=== PATIENT | male | born 1955 | race Caucasian/White ===

== ENCOUNTER → 2018-06-28 02:48 | Outpatient (CLI) | payer MEDICARE, BC, SELFPAY ==
[2018-06-28 14:11] LABS: Ferritin 41 ng/mL (8-388)
== END ==
PROVIDERS: PCP Family Medicine; Visit Provider Nurse Practitioner
DX: M25.50 Pain in unspecified joint (principal)
CPT/HCPCS: 36415; 82728

== ENCOUNTER → 2018-06-28 03:18 | Outpatient (CLI) | payer MEDICARE, BC, SELFPAY ==
--- NOTE | 2018-07-05 06:21 | HOLTER_ITS ---
HOLTER MONITOR DATE OF DICTATION July 04, 2018 INTERPRETATION Baseline rhythm sinus. Rare single PAC. No Atrial fibrillation or SVT. Occasional single PVC. 1 couplet. One burst nonsustained VT, 5-beat duration at 115 beats per minute. Nocturnal heart rates as low as 40 - 45 beats per minute. Nocturnal Wenckebach is appreciated. Also appreciated is nocturnal 2:1 AV block, unclear if this is Wenckebach block or type II second-degree block. SYMPTOMS Flutter noted once during sinus rhythm. 80 beats per minute. Average heart rate 75 beats per minute, range 39 - 75 beats per minute. Rodo Barroso M.D. ML/jocelyn T- 07/05/2018
== END ==
PROVIDERS: PCP Family Medicine; Visit Provider Student in an Organized Health Care Education/Training Program
DX: M25.50 Pain in unspecified joint (principal); I49.1 Atrial premature depolarization; I49.3 Ventricular premature depolarization; I47.1 Supraventricular tachycardia; I44.30 Unspecified atrioventricular block
CPT/HCPCS: 93225; 36415; 82728

== ENCOUNTER → 2018-07-01 09:28 | Outpatient (CLI) | payer MEDICARE, BC, SELFPAY | PROVIDERS: PCP Family Medicine; Visit Provider Family Medicine | DX: I49.1 Atrial premature depolarization (principal); I47.1 Supraventricular tachycardia; I49.3 Ventricular premature depolarization; I44.30 Unspecified atrioventricular block | CPT/HCPCS: 93226 ==

== ENCOUNTER → 2018-07-04 10:00 | Outpatient (CLI) | payer MEDICARE, BC, SELFPAY | PROVIDERS: PCP Family Medicine; Visit Provider Internal Medicine Interventional Cardiology | DX: I49.9 Cardiac arrhythmia, unspecified (principal); I44.1 Atrioventricular block, second degree | CPT/HCPCS: 93227 ==

== ENCOUNTER → 2018-07-06 09:58 | Outpatient (CLI) | payer MEDICARE, BC, SELFPAY | PROVIDERS: PCP Family Medicine; Visit Provider Student in an Organized Health Care Education/Training Program | DX: I47.2 Ventricular tachycardia (principal) | CPT/HCPCS: 93005; 93010 ==

== ENCOUNTER 2018-08-08 01:10 | Outpatient (CLI) | payer MEDICARE, BC, SELFPAY ==
[2018-08-08 08:37] LABS: Anion Gap 7.7 mmol/L (3-11); BUN 17 mg/dL (7-18); CO2 30.3 mmol/L (21.0-32.0); CREATININE 0.76 mg/dL (0.70-1.30); Calcium 8.4 mg/dL (8.5-10.1); Chloride 102 mmol/L (98-107); Cholesterol 160 mg/dL (50-200); Glucose 93 mg/dL (70-100); HDL Cholesterol 31 mg/dL (40-60); LDL CHOLESTEROL 113 mg/dL (<100); Potassium 4.2 mmol/L (3.5-5.1); Sodium 140 mmol/L (136-145); Triglyceride 113 mg/dL (30-150)
== END 2018-08-08 01:30 ==
PROVIDERS: PCP Family Medicine; Visit Provider Family Medicine
DX: E78.5 Hyperlipidemia, unspecified (principal); E61.1 Iron deficiency
CPT/HCPCS: 36415; 80048; 80061; 83721

== ENCOUNTER 2018-11-06 09:01 | Emergency (ER) | payer MEDICARE, BC, SELFPAY ==
[2018-11-06 09:04] VITALS: BP 142/77; PULSE 67; RESP 16; TEMP 36.1; O2SAT 98
--- NOTE | 2018-11-06 09:13 | DI.CT_ITS ---
SYMPTOM/DIAGNOSIS: FENCEPOST TRAUMA, RUQ, PAIN IN RUQ. NO N/V/D/ ABDOMINAL AND PELVIC CT: 11/06 CT examination of the abdomen and pelvis was performed without contrast administration. Images obtained through the lung bases were unremarkable. Liver, spleen and pancreas show a normal noncontrast appearance Gallbladder and bile ducts are CT normal. There is calcification of the right adrenal gland without evidence of a mass. Kidneys and ureters are unremarkable in appearance by noncontrast criteria. No significant abdominal wall hernia seen. No evidence of appendicitis or diverticulitis. There is a question of mild fat stranding in the right upper quadrant which may be associated with recent trauma. No evidence of bowel obstruction or focal bowel wall hematoma. No free air. No free fluid. Abdominal aorta is of normal diameter. CONCLUSION: Question fat stranding right upper quadrant which may be associated with recent reported fence post trauma. No evidence of obstruction or perforation.
--- NOTE | 2018-11-06 09:22 | W.ED.GENAD ---
Discharge Plan Disposition Patient Disposition: HOME Condition: Good Discharge Details Chief Complaint: Chest/Rib Clinical Impression: Abdominal trauma Primary Care Provider: Devon Velasquez ED Provider: Amrit Alanis Home Meds and New Rx's Prescriptions: No Action tadalafil [Cialis] 5 mg tablet 5 mg PO DAILY RF: 0 loratadine 10 mg capsule 10 mg PO DAILY PRNRF: 0 fluticasone 50 mcg/actuation spray,suspension 2 spray TYREL DAILY PRNRF: 0 naproxen 500 mg tablet 500 mg PO BID PRNRF: 0 psyllium husk 0.52 GM capsule 0.52 gm PO DAILY RF: 0 famotidine 40 mg tablet 40 mg PO BID Qty: 180 RF: 4 Discharge Instructions Instructions: Blunt Abdominal Injury (ED) Additional Instructions: Please stick with a liquid diet for the next 24 hours and then gradually advance it to soft foods over the next 72 hours, eventually regaining a normal diet at the end of the week. If you notice any worsening pain, vomiting, diarrhea, blood in your stool, blood in your vomit, fever, chills, or change in your symptoms please return immediately. Please contact the surgeon's office Wednesday morning for close and prompt follow-up. If you notice any change in her symptomatology return immediately to the emergency department. Please continue to take Tylenol and Motrin as needed for the pain. Do not perform any vigorous activities, and do not put yourself in any situation that could result in repeat abdominal trauma. As always it is a pleasure participating in your care today. Referrals: Eber Carvalho DO [ [facility] STAFF PHYSICIAN] - Medical Decision Making This is a 63-year-old male who presents for evaluation of right upper quadrant abdominal pain after getting struck in the right upper quadrant by a fence post 6 days ago. He had improvement of his symptoms, but unfortunately it got acutely worse yesterday. It is worse with movement and palpation. It is improved by nothing. He has no associated nausea vomiting or diarrhea. Pain is minimal on palpation. The pain unfortunately is more so in the abdomen itself and less on the ribs. He has no symptoms of hematuria or dysuria. We do not have ultrasound capabilities over the weekend for this. I discussed with the patient potential CT imaging, and he would like further diagnostic imaging. Unfortunately today our CT scanner does not have a working IV contrast capability secondary to a national software issue. I discussed with the patient that the most appropriate test would be CT with contrast IV and that he would need to be transferred to 1 of the local facilities for this. The patient does not want to be transferred, nor does he want to leave just for the further IV contrast CT image. I discussed that a CT scan without contrast would not be as ideal, and the patient understands this risk. Respecting patient wishes we will go ahead with the CT scan noncon. 10:[address] scan has returned and demonstrates evidence of inflammatory changes surrounding the small bowel loops in the right upper quadrant. There is some diverticulosis as well, but no diverticulitis. Questionable mild pericolonic inflammatory changes may represent very mild diverticulitis on the rectosigmoid region. The patient has no pain in this region, and so I feel this is less likely. Because of the patient's CT scan findings, we will perform a laboratory workup to look for elevated lipase, elevated white count, or other significant abnormality. Hollow viscus injury is certainly on the differential, however his exam does not demonstrate signs and symptoms consistent with an acute abdomen. Pending laboratory workup will consult surgery for review of the case. 11:30 AM The patient's laboratory workup is returned benign, no significant abnormalities, no evidence of elevated lactate, lipase, or elevated white count. The patient is still able to eat and drink well, and is able to tolerate p.o. well. His pain is controlled with a single dose of acetaminophen that he was given. I did discuss the case with Dr. Padilla, she did personally reviewed the patient's chart, images, and we discussed the patient's clinical presentation at this time. She feels that if he is able to tolerate p.o., and his pain is controlled with NSAIDs, and there is no indication for admission at this time. She does recommend close and prompt follow-up though. As well as a liquid diet over the next 24-48 hours with a slow advance. I went back and reassessed the patient and he continues to have a nonsurgically acute abdomen on clinical exam. He is able to tolerate p.o. well. His pain is controlled. He has no clinical indications of abdominal compartment syndrome, and no radiographic evidence of intestinal rupture, or perforation. I had a long discussion with the patient regarding observation versus discharge. Patient agrees with discharge and feels comfortable with this. We also discussed the importance of a low threshold for return, as well as signs and symptoms that would merit to return. Patient understands. Patient will be discharged home with close follow-up with surgery on Wednesday, and a low threshold for return to the ED if he has any worsening or change in his symptomatology. I have extensively reviewed the treatment plan and discharge instructions with the patient. I have addressed all patient concerns at this time. The patient was made aware of what symptoms to monitor for that would warrant a return to the emergency department. Discussed the plan with the patient, they demonstrate verbal understanding and agreement with our assessment and plan at this time. FINDINGS: Lower thorax: No acute findings. ABDOMEN: Liver: Hepatomegaly 16 cm No mass. Gallbladder and bile ducts: Normal. No calcified stones. No ductal dilation. Pancreas: Normal. No ductal dilation. Spleen: Normal. No splenomegaly. Adrenals: Normal. No mass. Kidneys and ureters: Normal. No hydronephrosis. Stomach and bowel: Inflammatory changes are seen around loops of small bowel and colon in the right upper quadrant. This may represent contusion from the recent trauma. Diverticulosis of the rectosigmoid. Mild pericolonic inflammatory changes may represent diverticulitis in the appropriate clinical setting. Appendix: Normal appendix PELVIS: Bladder: Unremarkable as visualized. Reproductive: The prostate is enlarged, greater than 5 cm. ABDOMEN and PELVIS: Intraperitoneal space: Normal. No free air. No significant fluid collection. Bones/joints: No acute fracture. No dislocation. Soft tissues: Unremarkable. Vasculature: Normal. No abdominal aortic aneurysm. Lymph nodes: Normal. No enlarged lymph nodes. IMPRESSION: 1. Inflammatory changes are seen around loops of small bowel and colon in the right upper quadrant. This may represent contusion from the recent trauma. 2. Diverticulosis of the rectosigmoid. Mild pericolonic inflammatory changes may represent diverticulitis in the appropriate clinical setting. 3. The prostate is enlarged, greater than 5 cm. Recommend urology consult Dictated and Authenticated by: Paulo Amezcua MD. HPI General Date/Time Provider Initiated Documentation: 11/06/18 09:08. HPI Narrative: This is a 63-year-old male with a past medical history of prostatic hypertrophy, and reflux who presents today for right upper quadrant abdominal pain. 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 He took some [id number] pain medications and over the next few days the pain notably improved however patient states that yesterday and today there was a paradoxical worsening of his pain. He has had no associated vomiting, diarrhea, nausea, fever, chills, dysuria, hematuria, numbness, tingling, or weakness. He has no radiation of the pain to other areas of his abdomen. He denies any pleuritic pain. He has mild pain on the rib itself but mostly it is under the rib. He denies any cough or shortness of breath. He has worsening of his pain with movement and palpation. Improvement of his pain with nothing at this point. He denies any other associated symptoms. He denies any recent surgeries, pertinent family history, IV tobacco or illicit drug use. Related Data Home Medications Medication Instructions Recorded Confirmed psyllium husk 0.52 gm PO DAILY 05/28/17 07/28/18 loratadine 10 mg capsule 10 mg PO DAILY PRN 07/27/18 11/06/18 tadalafil 5 mg tablet 5 mg PO DAILY 07/27/18 11/06/18 fluticasone 50 mcg/actuation nasal 2 spray TYREL DAILY PRN 07/28/18 11/06/18 spray,suspension naproxen 500 mg tablet 500 mg PO BID PRN tab-cap 07/28/18 11/06/18 famotidine 40 mg tablet 40 mg PO BID #180 tab 11/04/18 11/06/18 Previous Rx's Medication Instructions Recorded famotidine 40 mg tablet 40 mg PO BID #180 tab 11/04/18 Allergies Allergy/AdvReac Type Severity Reaction Status Date / Time tamsulosin HCl [From Flomax] AdvReac Severe LETHARGIC Unverified 11/06/18 09:24 lactose AdvReac Unknown INTOLERANT Unverified 11/06/18 09:24 General Stated Complaint: Chest/Rib JESSE: 4 Review of Systems Review of Systems All systems reviewed & are unremarkable except as noted in HPI and below PFSH Surgical History Arthroplasty of knee Total replacement of hip Family History Mother Essential hypertension Heart disease Father Essential hypertension Parkinson disease Sister No problems noted. Sister No problems noted. Sister No problems noted. Brother Essential hypertension Neoplasm Brother Heart disease Hemochromatosis Grandfather Heart disease Grandfather No problems noted. Grandmother Neoplasm Grandmother No problems noted. Daughter Depression Daughter No problems noted. 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 3.ENT: Atraumatic external nose and ears. Moist MM. Neck: Symmetric, trachea midline, No thyromegaly. 4.CVS: +S1/S2, No murmurs or gallops. Peripheral pulses 2+ and equal in all extremities. Brisk capillary refill in all extremities. 5.RESP: Unlabored respiratory effort. Clear to auscultation bilaterally. No wheezes rales or rhonchi 6.GI: Soft, Nondistended, No hepatosplenomegaly. No guarding or rebound. Minimal pain on deep palpation of the right upper quadrant. No pain in the right lower, or the left side of the abdomen. No evidence of bruising. No evidence of an acute surgical abdomen. Mild pain on palpation of the right ribs. No paradoxical movement. 7.MSK: Normocephalic/Atraumatic, Extremities w/o deformity, No cyanosis or clubbing, Normal movement of all extremities no flank or CVA tenderness 8.Skin: Warm, Dry. No rashes or lesions. 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 Sensation grossly intact, no focal neurologic deficits. 10.Psych: (AAO) x3. Appropriate mood and affect Course Vital Signs Temperature 36.1 C L 11/06/18 09:04 Pulse 67 11/06/18 09:04 Respiratory Rate 16 11/06/18 09:04 Blood Pressure 142/77 H 11/06/18 09:04 Pulse Oximetry 98 11/06/18 09:04 Temperature 36.1 C L 11/06/18 09:04 Temperature Source Skin 11/06/18 09:04 Pulse 67 11/06/18 09:04 Respiratory Rate 16 11/06/18 09:04 Respiratory Effort Non-Labored 11/06/18 09:07 Blood Pressure 142/77 H 11/06/18 09:04 Pulse Oximetry 98 11/06/18 09:04 Pain Level 6 11/06/18 09:04
[2018-11-06] MEDS: Acetaminophen 500 MG TAB 1000 MG PO (09:30)
[2018-11-06 09:36] LABS: Bilirubin Negative (Negative); Blood Negative (Negative); Clarity Clear; Glucose Negative (Negative); Ketones Negative (Negative); Leukocyte Esterase Negative (Negative); Nitrite Negative (Negative); Specific Gravity <= 1.005 (1.005-1.025); Urobilinogen 0.2 EU/dL (Up TO 0.2); pH 5.5 (5-8)
--- NOTE | 2018-11-06 09:57 | DI.VRAD_ITS ---
EXAM: CT Abdomen and Pelvis Without Contrast EXAM DATE/TIME: 11/06/2018 9:15 AM CLINICAL HISTORY: 63 years old, male; Injury or trauma; Injury history: Fencepost trauma ruq no n/v/d; Follow-up exam; Abrasion; Injury date: 6 days ago TECHNIQUE: Axial computed tomography images of the abdomen and pelvis without contrast. Coronal and sagittal reformatted images were created and reviewed. COMPARISON: No relevant prior studies available. FINDINGS: Lower thorax: No acute findings. ABDOMEN: Liver: Hepatomegaly 16 cm No mass. Gallbladder and bile ducts: Normal. No calcified stones. No ductal dilation. Pancreas: Normal. No ductal dilation. Spleen: Normal. No splenomegaly. Adrenals: Normal. No mass. Kidneys and ureters: Normal. No hydronephrosis. Stomach and bowel: Inflammatory changes are seen around loops of small bowel and colon in the right upper quadrant. This may represent contusion from the recent trauma. Diverticulosis of the rectosigmoid. Mild pericolonic inflammatory changes may represent diverticulitis in the appropriate clinical setting. Appendix: Normal appendix PELVIS: Bladder: Unremarkable as visualized. Reproductive: The prostate is enlarged, greater than 5 cm. ABDOMEN and PELVIS: Intraperitoneal space: Normal. No free air. No significant fluid collection. Bones/joints: No acute fracture. No dislocation. Soft tissues: Unremarkable. Vasculature: Normal. No abdominal aortic aneurysm. Lymph nodes: Normal. No enlarged lymph nodes. IMPRESSION: 1. Inflammatory changes are seen around loops of small bowel and colon in the right upper quadrant. This may represent contusion from the recent trauma. 2. Diverticulosis of the rectosigmoid. Mild pericolonic inflammatory changes may represent diverticulitis in the appropriate clinical setting. 3. The prostate is enlarged, greater than 5 cm. Recommend urology consult Dictated and Authenticated by: Paulo Amezcua MD. Ordering:JAMES Marcus MD
[2018-11-06 10:28] LABS: Lactate-non-spesis 1.1 mmol/L (0.6-1.4)
[2018-11-06 10:29] LABS: Abs Immature Grans 0.01 k/cumm (0.0-0.09); Absolute Basophil Count 0.03 k/cumm (0.0-0.2); Absolute Eosinophil Count 0.21 k/cumm (0.0-0.7); Absolute Lymphocyte Count 0.86 k/cumm (1.2-3.4); Absolute Monocyte Count 0.56 k/cumm (0.11-0.7); Absolute Neutrophil Count 4.06 k/cumm (1.2-6.7); Basophils % 0.5; Eosinophils % 3.7; HCT 43.2 % (40.0-50.0); HGB 14.9 g/dL (13.5-17.5); Immature Grans % 0.2; Mean Corp. HGB Concentration 34.5 g/dL (32.0-36.0); Mean Corpuscular Hemoglobin 30.5 pg (27.0-33.0); Mean Corpuscular Volume 88.3 fL (80-95); Mean Platelet Volume 10.7 fL (8.0-11.0); Monocytes % 9.8; Neutrophils % 70.8; Platelet Count 189 x1000/uL (130-400); RBC 4.89 m/cumm (4.50-6.00); RBC Distribution Width 12.7 % (11.8-14.1); White Blood Cell Count 5.73 k/cumm (4.4-10.8)
[2018-11-06] MEDS: Normal Saline 1,000 ML 1000 ML IV (10:34)
[2018-11-06 10:42] LABS: INR 1.1 (1.0-3.5); PTT Activated 24.5 sec (21.0-31.4)
[2018-11-06 10:45] LABS: Ammonia 19 umol/L (11-32)
[2018-11-06 10:56] LABS: ALT 23 U/L (12-78); AST 18 U/L (15-37); Albumin 3.4 g/dL (3.4-5.0); Alkaline Phosphatase 97 U/L (46-116); Anion Gap 5.8 mmol/L (3-11); BUN 15 mg/dL (7-18); Bilirubin, Total 0.9 mg/dL (0.2-1.0); CO2 31.2 mmol/L (21.0-32.0); Chloride 103 mmol/L (98-107); Glucose 87 mg/dL (70-100); Lipase 128 U/L (73-393); Potassium 4.4 mmol/L (3.5-5.1); Sodium 140 mmol/L (136-145); Total Protein 6.8 g/dL (6.4-8.2)
[2018-11-06 11:40] VITALS: BP 131/79; PULSE 56; RESP 16; O2SAT 97
== END 2018-11-06 12:00 | disposition home or self-care (01) ==
PROVIDERS: Emergency Provider Student in an Organized Health Care Education/Training Program; PCP Family Medicine
DX: R10.11 Right upper quadrant pain (principal); R93.3 Abnormal findings on diagnostic imaging of other parts of digestive tract; W22.8XXA Striking against or struck by other objects, initial encounter
CPT/HCPCS: 36415; 80053; 83690; 96360; 99284; 74176; 81003; 82140; 83605; 85025; 85610; 85730; 99285

== ENCOUNTER 2018-11-09 20:21 | Emergency (ER) | payer MEDICARE, BC, SELFPAY ==
[2018-11-09 20:27] VITALS: BP 123/74; PULSE 69; RESP 18; TEMP 36.5; O2SAT 97
--- NOTE | 2018-11-09 21:00 | W.ED.GENAD ---
Discharge Plan Disposition Patient Disposition: HOME Condition: Good Discharge Details Chief Complaint: Abd Prob Clinical Impression: Abdominal pain, right upper quadrant, Enlarged prostate with lower urinary tract symptoms (LUTS) Primary Care Provider: Devon Velasquez ED Provider: Kyle Carty [place] Meds and New Rx's Prescriptions: Continued tadalafil [Cialis] 5 mg tablet 5 mg PO DAILY RF: 0 loratadine 10 mg capsule 10 mg PO PRN PRNRF: 0 fluticasone 50 mcg/actuation spray,suspension 2 spray TYREL PRN PRNRF: 0 naproxen 500 mg tablet 500 mg PO BID PRNRF: 0 psyllium husk 0.52 GM capsule 0.52 gm PO DAILY RF: 0 famotidine 40 mg tablet 40 mg PO DAILY RF: 0 acetaminophen 500 mg Capsule 2 cap PO PRN PRNRF: 0 Discharge Instructions Additional Instructions: Repeat laboratory studies tonight are fine. Repeat CT scan shows no changes in the right upper quadrant which were present 3 days ago. You do have a significantly enlarged prostate and left seminal vesicle. Please follow-up with your primary care or with urology for this. You should follow-up with surgery as planned for the right upper quadrant pain. Return to ED for fever, vomiting, new or worsening pain. Referrals: Mayte Padilla MD [ [facility] STAFF PHYSICIAN] - Devon Velasquez MD [Primary Care Provider] - Medical Decision Making Patient returns with worse pain. He is a little tender in the right upper quadrant. He otherwise looks well. I did review the radiology read as well as the ED record from his visit on the . Given that the scan was without contrast and had abnormal findings I think it reasonable to repeat his scan with contrast tonight and recheck his laboratory studies. He declines anything for pain. Patient laboratory studies remain unremarkable. His urinalysis remains negative. CT scan tonight shows no significant pathology. Specifically there are no right upper quadrant changes. He does have enlarged prostate and enlarged left seminal vesicle. He is known to have a large prostate. He may follow-up with primary care for this. He has an appointment with surgery tomorrow for his right upper quadrant pain. He will be discharged home at this time. Medical Records Medical records reviewed: Yes I reviewed the patient's medical records. Lab Data Lab results reviewed: Yes I reviewed the patient's lab results. HPI General Mode of arrival: ambulatory. Date/Time Provider Initiated Documentation: 11/09/18 20:59. Limitations to Documentation: no limitations. Information obtained by: patient and old records reviewed. HPI Narrative: Patient presents to ED with some worsening right upper quadrant pain. Patient seen here on the with increased pain. Reported having a fall against a fence posts and striking that area about 5-6 days prior. Workup included a CT scan with no contrast due to technical issues. There was suggestion of changes in the right upper quadrant possibly related to contusion versus infection. Patient had a normal white count and no fever. He had no other symptoms. He was discharged to follow-up with surgery and told to return if he had worse pain. He had been doing okay with just Tylenol. Tonight pain seemed to be worse. He has no other associated symptoms with it. He has no chest pain or shortness of breath. He has no pain in his back. He has no hematuria. However, because he was told to return if he had worsening symptoms, he is here for reevaluation. Related Data Home Medications Medication Instructions Recorded Confirmed psyllium husk 0.52 gm PO DAILY 05/28/17 11/09/18 loratadine 10 mg capsule 10 mg PO PRN PRN 07/27/18 11/09/18 tadalafil 5 mg tablet 5 mg PO DAILY 07/27/18 11/09/18 fluticasone 50 mcg/actuation nasal 2 spray TYREL PRN PRN 07/28/18 11/09/18 spray,suspension naproxen 500 mg tablet 500 mg PO BID PRN tab-cap 07/28/18 11/09/18 acetaminophen 2 cap PO PRN PRN 11/09/18 11/09/18 famotidine 40 mg PO DAILY 11/09/18 11/09/18 Allergies Allergy/AdvReac Type Severity Reaction Status Date / Time tamsulosin HCl [From Flomax] AdvReac Severe LETHARGIC Unverified 11/09/18 20:31 lactose AdvReac Unknown INTOLERANT Unverified 11/09/18 20:31 General Stated Complaint: Abd Prob JESSE: 3 Review of Systems Constitutional Denies chills, Denies fever(s), Denies headache(s), Denies malaise and Denies weakness Eyes Denies change in vision, Denies eye discharge, Denies irritation and Denies eye pain ENT Denies headache(s) and Denies neck pain Cardiovascular Denies chest pain, Denies pedal edema, Denies edema, Denies leg edema, Denies lightheadedness, Denies palpitations and Denies dyspnea Respiratory Denies cough and Denies dyspnea Gastrointestinal Reports abdominal pain, Denies diarrhea, Denies nausea and Denies vomiting Genitourinary Denies hematuria, Denies difficulty urinating, Denies dysuria, Denies urinary frequency and Denies urinary urgency Musculoskeletal Denies back pain, Denies myalgias, Denies arthralgias, Denies joint swelling, Denies neck pain and Denies numbness Integumentary/Breasts Denies erythema and Denies rash Neurologic Denies confusion, Denies headache(s), Denies numbness and Denies weakness Psychiatric Denies confusion Endocrine Denies palpitations PFSH Medical History Enlarged prostate with lower urinary tract symptoms (LUTS) (Chronic 07/07/16) Gastro-esophageal reflux disease with esophagitis (Chronic) Generalized osteoarthrosis (Chronic) Surgical History Arthroplasty of knee (Inactive) Family History Mother Essential hypertension Heart disease Father Essential hypertension Parkinson disease Sister No problems noted. Sister No problems noted. Sister No problems noted. Brother Essential hypertension Neoplasm Brother Heart disease Hemochromatosis Grandfather Heart disease Grandfather No problems noted. Grandmother Neoplasm Grandmother No problems noted. Daughter Depression Daughter No problems noted. Social History household members: other details: 2 current occupational status: retired pets and animals: Yes pets and animals: cat(s) frequency: daily duration: 30-45 minutes/day Smoking/Tobacco Use Status: Never alcohol intake: current alcohol intake frequency: 0-2 drinks per day substance use type: does not use sylvia/mandaeism: Muslim special sylvia needs: No Exam Const General: cooperative, comfortable and no acute distress Orientation: alert and oriented x3 HENMT Head: normocephalic and atraumatic Mouth: moist mucous membranes Eyes Conjunctivae: conjunctivae normal Pupils: PERRL EOM: EOM intact bilaterally Neck Neck: full ROM, no lymphadenopathy, trachea midline and supple Resp Effort & Inspection: normal respiratory effort Auscultation: clear to auscultation bilaterally Cardio Rate: regular rate Rhythm: regular rhythm Heart Sounds: S1 normal and S2 normal Pulses: normal peripheral pulses GI Inspection: non-distended Palpation: soft, not firm, no guarding and tender in the RUQ; Chavez's sign negative Skin General skin exam: no erythema Rashes: no rashes Trauma: no lacerations or abrasions Other: warm and dry Neuro General: alert, oriented x3, no focal motor deficits and CN's II-XI intact bilaterally Cognition: normal cognition Speech: speech normal Sensory Exam: no sensory deficits noted Extrem General: normal to inspection, full ROM and no clubbing, cyanosis or edema Psych Appearance: grossly normal Mental Status: mental status grossly normal Affect: normal affect Attitude: cooperative Course Vital Signs Temperature 97.7 F 11/09/18 20:27 Pulse 69 11/09/18 20:27 Respiratory Rate 18 11/09/18 20:27 Blood Pressure 123/74 11/09/18 20:27 Pulse Oximetry 97 11/09/18 20:27 Temperature 97.7 F 11/09/18 20:27 Temperature Source Skin 11/09/18 20:27 Pulse 69 11/09/18 20:27 Respiratory Rate 18 11/09/18 20:27 Respiratory Effort 11/09/18 20:29 Blood Pressure 123/74 11/09/18 20:27 Blood Pressure Position Sitting 11/09/18 20:27 Pulse Oximetry 97 11/09/18 20:27 Oxygen Delivery Method Room Air 11/09/18 20:27 Oxygen Flow Rate 0 11/09/18 20:27 Pain Level 0 11/09/18 20:36 Comment 11/09/18 20:27
[2018-11-09 21:47] LABS: ALT 22 U/L (12-78); AST 15 U/L (15-37); Abs Immature Grans 0.01 k/cumm (0.0-0.09); Absolute Basophil Count 0.03 k/cumm (0.0-0.2); Absolute Eosinophil Count 0.25 k/cumm (0.0-0.7); Absolute Lymphocyte Count 1.09 k/cumm (1.2-3.4); Absolute Monocyte Count 0.56 k/cumm (0.11-0.7); Absolute Neutrophil Count 3.84 k/cumm (1.2-6.7); Albumin 3.2 g/dL (3.4-5.0); Alkaline Phosphatase 104 U/L (46-116); Anion Gap 6.6 mmol/L (3-11); BUN 13 mg/dL (7-18); Basophils % 0.5; Bilirubin, Total 0.5 mg/dL (0.2-1.0); CO2 30.4 mmol/L (21.0-32.0); CREATININE 0.81 mg/dL (0.70-1.30); Calcium 8.6 mg/dL (8.5-10.1); Chloride 100 mmol/L (98-107); Eosinophils % 4.3; Glucose 104 mg/dL (70-100); HCT 39.7 % (40.0-50.0); HGB 13.8 g/dL (13.5-17.5); Immature Grans % 0.2; Lymphocytes % 18.9; Mean Corp. HGB Concentration 34.8 g/dL (32.0-36.0); Mean Corpuscular Hemoglobin 30.1 pg (27.0-33.0); Mean Corpuscular Volume 86.5 fL (80-95); Mean Platelet Volume 10.9 fL (8.0-11.0); Monocytes % 9.7; Neutrophils % 66.4; Platelet Count 191 x1000/uL (130-400); Potassium 3.5 mmol/L (3.5-5.1); RBC 4.59 m/cumm (4.50-6.00); RBC Distribution Width 12.2 % (11.8-14.1); Sodium 137 mmol/L (136-145); Total Protein 6.8 g/dL (6.4-8.2); White Blood Cell Count 5.78 k/cumm (4.4-10.8)
[2018-11-09 22:01] LABS: Bilirubin Negative (Negative); Blood Negative (Negative); Clarity Clear; Glucose Negative (Negative); Ketones Negative (Negative); Leukocyte Esterase Negative (Negative); Nitrite Negative (Negative); Specific Gravity <= 1.005 (1.005-1.025); Urobilinogen 0.2 EU/dL (Up TO 0.2); pH 5.5 (5-8)
[2018-11-09 22:18] LABS: Lipase 136 U/L (73-393)
[2018-11-09] MEDS: Omnipaque 350 MG/ML 100 ML BTL IJ (22:54)
--- NOTE | 2018-11-09 22:55 | DI.CT_ITS ---
SYMPTOM/DIAGNOSIS: ABNORMAL NONCONTRAST SCAN 3 DAYS AGO/PAIN WORSE CT ABDOMEN AND PELVIS: The study was conducted according to the usual protocol with an intravenous administration of 100 ml Omnipaque 350. The history in this patient is abdominal pain generalized, with increased symptoms status post prior CT which was obtained 3 days ago. The lower thorax is unremarkable. The liver, gallbladder, and bile ducts are unremarkable. There are no stones. The pancreas and spleen are normal. There is note made of left adrenal nodular hyperplasia. Right adrenal calcification suggesting possible sequela from an old hemorrhage. The kidneys are normal. Note is made of a moderate quantity of feces in the transverse and right colon. There is severe colonic diverticulosis with no evidence of diverticulitis. The bladder is unremarkable. Prostate is enlarged at 6.5 cm, also prominence of the left seminal vesical is identified. These findings could be correlated with the patient's PSA levels. Also correlation with non-emergent prostate ultrasound and other modalities might be of value. There is no evidence of free air or free fluid in the intraperitoneal space. Mild to moderate multi-level degenerative changes are identified. There is degenerative disc disease, spondylosis and facet joint DJD. There is a minimal Grade 1 anterior listhesis of L4 and L5 with resultant central spinal stenosis and with severe facet joint degenerative changes at this level. The soft tissues are unremarkable. Atherosclerotic changes are noted in the aorta and iliac vessels, there is no evidence of an aneurysm. Note is made of one or more calcified pelvic phleboliths as well. There is no evidence of lymphadenopathy. SUMMARY: The prostate is enlarged with a maximal diameter of 6.5 cm. Also left seminal vesical prominence is demonstrated. Correlation with PSA levels is recommended in this patient. Also an ultrasound examination of the prostate, CT or MRI could be of value for further evaluation if appropriate. Note is made of diverticulosis with no evidence of diverticulitis. A large quantity of fecal material is noted throughout the ascending and transverse colonic segments with a moderate quantity of scattered gas throughout the colon and nondilated small bowel loops are apparent. The findings would be consistent with constipation, please see the above discussion.
--- NOTE | 2018-11-10 00:01 | DI.VRAD_ITS ---
EXAM: CT Abdomen and Pelvis With Contrast EXAM DATE/TIME: 11/09/2018 10:52 PM CLINICAL HISTORY: 63 years old, male; Pain; Abdominal pain; Generalized; Patient HX: Non contrast exam 3 days ago, increased pain TECHNIQUE: Axial computed tomography images of the abdomen and pelvis with intravenous contrast. All CT scans at this facility use at least one of these dose optimization techniques: automated exposure control; mA and/or kV adjustment per patient size (includes targeted exams where dose is matched to clinical indication); or iterative reconstruction. Coronal and sagittal reformatted images were created and reviewed. CONTRAST: 100 ml of Omnipaque 350 administered intravenously. COMPARISON: CT ABDOMEN PELVIS WO 11/06/2018 9:39 AM FINDINGS: Lower thorax: No acute findings. ABDOMEN: Liver: Normal. No mass. Gallbladder and bile ducts: Normal. No calcified stones. No ductal dilation. Pancreas: Normal. No ductal dilation. Spleen: Normal. No splenomegaly. Adrenals: Left adrenal nodular hyperplasia. Right adrenal calcification suggesting sequela from possible previous adrenal hemorrhage. Kidneys and ureters: Normal. No hydronephrosis. Stomach and bowel: Moderate retained feces in the transverse colon and right colon. Impression: Severe colonic diverticulosis. Appendix: The appendix appears normal. PELVIS: Bladder: Unremarkable as visualized. Reproductive: Enlarged prostate at 6.5 cm with enlarged left seminal vesicle; correlation with PSA levels is recommended. Correlation with nonemergent prostate ultrasound or other imaging modality may be helpful. ABDOMEN and PELVIS: Intraperitoneal space: Normal. No free air. No significant fluid collection. Bones/joints: Mild to moderate multilevel degenerative changes including degenerative disc disease, spondylosis and facet degenerative changes. Minimal 1 mm grade 1 anterior non-spondylitic spondylolisthesis of L4 on L5 with central spinal stenosis and prominent facet degenerative changes. Soft tissues: Unremarkable. Vasculature: Calcification of the abdominal aorta and/or iliac arteries consistent with atherosclerotic vessel disease. One or more calcified pelvic phleboliths. Lymph nodes: Normal. No enlarged lymph nodes. IMPRESSION: 1. Enlarged prostate at 6.5 cm with enlarged left seminal vesicle; correlation with PSA levels is recommended. Correlation with nonemergent prostate ultrasound or other imaging modality may be helpful. 2. Severe colonic diverticulosis. Dictated and Authenticated by: oRdo Guerrero MD. Ordering:STARLA Wright MD
== END 2018-11-10 00:30 | disposition home or self-care (01) ==
PROVIDERS: Emergency Provider Emergency Medicine; PCP Family Medicine
DX: R10.11 Right upper quadrant pain (principal); N40.1 Benign prostatic hyperplasia with lower urinary tract symptoms; R39.198 Other difficulties with micturition
CPT/HCPCS: 36415; 80053; 83690; 96374; 99284; 74177; 81003; 85025; 99283; J3490

== ENCOUNTER → 2018-11-10 11:26 | Outpatient (BNVA) | payer MEDICARE, BC, SELFPAY | PROVIDERS: PCP Family Medicine; Referring Provider Family Medicine; Visit Provider Physical Therapy Assistant | DX: R10.11 Right upper quadrant pain (principal) | CPT/HCPCS: 99213 ==

== ENCOUNTER → 2018-11-14 11:20 | Outpatient (BNVA) | payer MEDICARE, BC, SELFPAY | PROVIDERS: PCP Family Medicine; Visit Provider Urology | DX: N40.1 Benign prostatic hyperplasia with lower urinary tract symptoms (principal); R39.198 Other difficulties with micturition | CPT/HCPCS: 99213 ==

== ENCOUNTER 2019-04-16 08:15 | Emergency (ER) | payer MEDICARE, BC, SELFPAY ==
[2019-04-16 08:27] VITALS: BP 127/89; PULSE 64; RESP 16; TEMP 36.3; O2SAT 98
--- NOTE | 2019-04-16 08:30 | W.ED.GENAD ---
Discharge Plan Disposition Patient Disposition: HOME Condition: Stable Discharge Details Chief Complaint: Cellulitis Clinical Impression: Cellulitis of middle finger, Personal history of retained foreign body fully removed Primary Care Provider: Devon Velasquez ED Provider: Monica Briggs Home Meds and New Rx's Prescriptions: New amoxicillin-pot clavulanate [Augmentin] 875-125 mg tablet 1 tab PO BID 7 Days Qty: 14 RF: 0 Continued fluticasone propionate 50 mcg/actuation spray,suspension 2 spray TYREL PRN PRNRF: 0 naproxen 500 mg tablet 500 mg PO BID PRNRF: 0 lorazepam 0.5 mg tablet 0.5 mg PO .COMPLEX PRN (Reason: anxiety) Qty: 6 RF: 0 loratadine 10 mg capsule 10 mg PO PRN PRN (Reason: allergy symptoms) Qty: 60 RF: 2 psyllium husk 0.52 GM capsule 0.52 gm PO DAILY RF: 0 tadalafil [Cialis] 5 mg tablet 5 mg PO DAILY Qty: 30 RF: 11 famotidine 40 mg tablet 40 mg PO DAILY RF: 0 acetaminophen 500 mg Capsule 2 cap PO PRN PRNRF: 0 Discharge Instructions Instructions: Cellulitis (ED) Additional Instructions: Take the antibiotics until finished. Keep your finger clean and dry. Cover your distal fingertip with dressing if the risk of further contamination. Call your primary care doctor tomorrow to schedule follow-up appointment for reevaluation tomorrow. If unable to obtain reevaluation by primary care doctor tomorrow, return to the emergency department tomorrow for reevaluation of your finger. Discharge Data Discharge Physician: Monica Briggs Medical Decision Making 64-year-old male who presents with right third finger redness, pain and swelling for the past 2 days. States that 1 to 2 weeks ago he had a splinter under his right third fingernail which he removed, and symptoms have been resolved until 2 days ago. Vitals within normal limits. Patient appears nontoxic. Afebrile. There appears to be a right distal third finger cellulitis but no obvious paronychia. No obvious foreign body noted under fingernail. No signs of flexor tenosynovitis. Suspect that as symptoms resolved after he remove the splinter, the opening under the skin was a nidus for bacteria to travel up finger. I do not see any obvious foreign body under the fingernail and would not want to explore under the fingernail for possible foreign body with no obvious foreign body noted. Will soak finger in Betadine and saline, send for right third finger x-ray to rule out additional foreign body, and place on Augmentin. X-ray negative for fracture or foreign body. Patient declined dose of Augmentin here. Patient instructed to go immediately to the pharmacy to fill the prescription. He is instructed to call his primary care doctor tomorrow morning to schedule follow-up appointment for reevaluation tomorrow. If he is unable to see his primary care doctor tomorrow, he is instructed to return to the emergency department tomorrow for reevaluation. Medical Records Medical records reviewed: Yes I reviewed the patient's medical records. Imaging Data Radiologic Study: Radiologist's impression: XR Right Finger(s) EXAM DATE/TIME: 04/16/2019 8:40 AM CLINICAL HISTORY: 64 years old, male; Signs and symptoms; Other: S/P splinter in R middle finger nail, R/O foreign body/fracture/effusion TECHNIQUE: Imaging protocol: XR Right fingers. Views: Minimum 2 views. COMPARISON: No relevant prior studies available. FINDINGS: Bones/joints: No acute fracture. No dislocation. Soft tissues: No radiopaque foreign body. IMPRESSION: No radiopaque foreign body. HPI General Mode of arrival: ambulatory. Date/Time Provider Initiated Documentation: 04/16/19 08:28. Limitations to Documentation: no limitations. Information obtained by: patient. HPI Narrative: Patient is a 64-year-old male who presents with right third finger swelling and pain for the past 2 days. Patient states 1 to 2 weeks ago he was working with wood when he got a few splinters under his right third fingernail. He states he remove them and had been feeling fine up until 2 days ago. He states since then he has had progressive redness, swelling and pain. He denies any new injury. Related Data Home Medications Medication Instructions Recorded Confirmed psyllium husk 0.52 gm PO DAILY 05/28/17 04/16/19 fluticasone propionate 50 2 spray TYREL PRN PRN 07/28/18 04/16/19 mcg/actuation nasal spray,suspension naproxen 500 mg tablet 500 mg PO BID PRN tab-cap 07/28/18 04/16/19 acetaminophen 2 cap PO PRN PRN 11/09/18 04/16/19 famotidine 40 mg PO DAILY 11/09/18 04/16/19 loratadine 10 mg capsule 10 mg PO PRN PRN #60 cap 03/02/19 04/16/19 lorazepam 0.5 mg tablet 0.5 mg PO .COMPLEX PRN #6 tab 03/02/19 04/16/19 tadalafil 5 mg tablet 5 mg PO DAILY #30 tab 04/05/19 04/16/19 amoxicillin-pot clavulanate 1 tab PO BID 7 Days #14 tab 04/16/19 [Augmentin] Previous Rx's Medication Instructions Recorded loratadine 10 mg capsule 10 mg PO PRN PRN #60 cap 03/02/19 lorazepam 0.5 mg tablet 0.5 mg PO .COMPLEX PRN #6 tab 03/02/19 tadalafil 5 mg tablet 5 mg PO DAILY #30 tab 04/05/19 amoxicillin-pot clavulanate 1 tab PO BID 7 Days #14 tab 04/16/19 [Augmentin] Allergies Allergy/AdvReac Type Severity Reaction Status Date / Time tamsulosin HCl [From Flomax] AdvReac Severe LETHARGIC Verified 04/16/19 08:31 lactose AdvReac Unknown INTOLERANT Verified 04/16/19 08:31 General JESSE: 3 Review of Systems Review of Systems All systems reviewed & are unremarkable except as noted in HPI and below Constitutional Reports as per HPI, Denies chills and Denies fever(s) Eyes Denies blurry vision ENT Denies dizziness, Denies sore throat and Denies throat swelling Cardiovascular Denies chest pain and Denies dyspnea Respiratory Denies cough and Denies dyspnea Gastrointestinal Denies abdominal pain, Denies diarrhea and Denies vomiting Genitourinary Denies hematuria and Denies dysuria Musculoskeletal Denies back pain and Denies numbness Integumentary/Breasts Denies lesions and Denies rash Neurologic Denies dizziness, Denies focal weakness and Denies numbness Allergic/Immunologic Denies throat swelling [facility] Medical History Enlarged prostate with lower urinary tract symptoms (LUTS) (Chronic 07/07/16) Gastro-esophageal reflux disease with esophagitis (Chronic) Generalized osteoarthrosis (Chronic) Abdominal pain (Resolved) Surgical History Arthroplasty of knee (Inactive) Family History Mother Essential hypertension Heart disease Father Essential hypertension Parkinson disease Sister No problems noted. Sister No problems noted. Sister No problems noted. Brother Essential hypertension Neoplasm Brother Heart disease Hemochromatosis Grandfather Heart disease Grandfather No problems noted. Grandmother Neoplasm Grandmother No problems noted. Daughter Depression Daughter No problems noted. Social History Smoking/Tobacco Use Status: Never Alcohol Intake: current Alcohol Intake frequency: 0-2 drinks per day Drug use: Never Substance use type: does not use Household members: other Details: 2 Pets and animals: Yes Pets and animals: cat(s) Duration: 30-45 minutes/day Frequency: daily Crhistin/Nondenominational: Congregation Special christin needs: No Do you feel safe in your relationship?: Yes Exam Const General: cooperative, healthy appearing and no acute distress HENMT Head: normal to inspection Mouth: oral mucosae normal Eyes General: appearance normal, both eyes and all related structures Neck Neck: normal visual inspection Resp Effort & Inspection: normal respiratory effort and able to speak in complete sentences Cardio Rate: regular rate Skin General skin exam: no rashes or lesions noted Neuro General: alert, awake and oriented x3 Motor: muscle tone normal throughout Extrem Hand/finger images: 1. Moderate erythema and edema noted to distal dorsal finger. There is a localized 2x2mm area of fluctuance within the area of erythema 1cm passed the nail bed but this does not appear consistent with paronychia. 2. Moderate erythema and edema. Other: No pain with passive extension of finger. Limited flexion at DIP and PIP due to swelling. No significant tenderness along the dorsal finger. Cap refill less than 2 seconds. There is some brownish discoloration noted at distal tip of nail but no obvious foreign body noted. Psych Appearance: grossly normal Affect: normal affect
--- NOTE | 2019-04-16 08:39 | DI.RAD_ITS ---
SYMPTOM/DIAGNOSIS: S/P SPLINTER IN RT MIDDLE FINGER NAIL, ? FOREIGN BODY, PAIN RIGHT MIDDLE FINGER: Three views were obtained. There are degenerative changes of the IP joints. There is mild soft tissue swelling, particularly about the PIP joint. No gross foreign body or fracture is seen.
--- NOTE | 2019-04-16 09:57 | DI.VRAD_ITS ---
EXAM: XR Right Finger(s) EXAM DATE/TIME: 04/16/2019 8:40 AM CLINICAL HISTORY: 64 years old, male; Signs and symptoms; Other: S/P splinter in R middle finger nail, R/O foreign body/fracture/effusion TECHNIQUE: Imaging protocol: XR Right fingers. Views: Minimum 2 views. COMPARISON: No relevant prior studies available. FINDINGS: Bones/joints: No acute fracture. No dislocation. Soft tissues: No radiopaque foreign body. IMPRESSION: No radiopaque foreign body. Dictated and Authenticated by: Emily Torerz MD. Ordering:MARTIN Anderson MD
--- NOTE | 2019-04-16 10:51 | NUR.NOTE ---
finger soaked in saline with betadine 20min.Nursing Note:
== END 2019-04-16 10:06 | disposition home or self-care (01) ==
PROVIDERS: Emergency Provider Physician Assistant; PCP Family Medicine
DX: L03.011 Cellulitis of right finger (principal)
CPT/HCPCS: 99283; 73140

== ENCOUNTER 2019-04-17 09:03 | Emergency (ER) | payer MEDICARE, BC, SELFPAY ==
[2019-04-17 09:08] VITALS: BP 132/74; PULSE 63; RESP 20; TEMP 36.9; O2SAT 97
--- NOTE | 2019-04-17 09:11 | ED.GENADUL_ITS ---
Discharge Plan Disposition Patient Disposition: HOME Condition: Stable Discharge Details Chief Complaint: Recheck Clinical Impression: Cellulitis of finger, right Primary Care Provider: Devon Velasquez ED Provider: Christina Ventura Home Meds and New Rx's Prescriptions: Continued fluticasone propionate 50 mcg/actuation spray,suspension 2 spray TYREL PRN PRNRF: 0 naproxen 500 mg tablet 500 mg PO BID PRNRF: 0 lorazepam 0.5 mg tablet 0.5 mg PO .COMPLEX PRN (Reason: anxiety) Qty: 6 RF: 0 loratadine 10 mg capsule 10 mg PO PRN PRN (Reason: allergy symptoms) Qty: 60 RF: 2 psyllium husk 0.52 GM capsule 0.52 gm PO DAILY RF: 0 tadalafil [Cialis] 5 mg tablet 5 mg PO DAILY Qty: 30 RF: 11 famotidine 40 mg tablet 40 mg PO DAILY RF: 0 acetaminophen 500 mg Capsule 2 cap PO PRN PRNRF: 0 amoxicillin-pot clavulanate [Augmentin] 875-125 mg tablet 1 tab PO BID 7 Days Qty: 14 RF: 0 Discharge Instructions Instructions: Cellulitis (ED) Additional Instructions: Please return immediately to the emergency department if you develop any new or worsening symptoms or if you become otherwise concerned. It is extremely important that you make an appointment to be seen in 24 hours by your primary care doctor in follow-up for this visit, or if you cannot schedule this appointment please return to the emergency department in 24 hours for recheck. Please continue to take your antibiotics as prescribed. Referrals: Devon Velasquez MD [Primary Care Provider] - Discharge Data Discharge Date/Time-TO BE ENTERED AT DEPARTURE: 04/17/19 10:25 Medical Decision Making Denis Loomis is a 64-year-old man with a history of GERD, AV block, hyperlipidemia who presented to the emergency department for recheck of right index finger cellulitis after being started on Augmentin here yesterday. On exam patient is very well and nontoxic appearing. His right index finger has volar erythema from the PIP joint to the DIP joint, also mild dorsal erythema over the DIP. No pain with passive extension, finger is not held in flexion. Tenderness is mild. No clear paronychia, and patient reports that erythema did not start in the area of the cuticle. Doubt foreign body exam/history is not consistent with sepsis, flexor tenosynovitis, paronychia, other acute emergent life/limb threatening pathology. Plan for baseball splint for patient to wear while he is working underneath the glove, outpatient follow-up for recheck in 24 hours. I had a lengthy discussion with the patient regarding return to emergency department precautions, importance of outpatient follow-up, home care. Patient verbalized understanding the plan was amenable. Patient was discharged to home with clear plan for outpatient follow-up. All questions were answered. Medical Records Medical records reviewed: Yes I reviewed the patient's medical records. HPI General Mode of arrival: ambulatory . Date/Time Provider Initiated Documentation: 04/17/19 09:10 . Limitations to Documentation: no limitations . Information obtained by: patient, RN notes reviewed and old records reviewed . HPI Narrative: Denis Loomis is a 64-year-old man with history of AV block, GERD, hyperlipidemia presenting to the emergency department with finger infection. Per patient and record review, patient was seen in the emergency department yesterday and diagnosed with cellulitis of his right index finger. Patient reports that 1 to 2 weeks ago he had a splinter underneath his fingernail, which she removed at home by himself. He had no symptoms until several days ago when he noticed redness and swelling of the finger. X-ray here yesterday was negative. Patient was started on Augmentin. He was told to follow-up in 24 hours, however he could not get an appointment with his PCP until 04/19/2019, so return to the emergency department for recheck. Patient reports that his symptoms are unchanged from yesterday. He has redness, mild pain, and swelling of the finger. Redness has not increased or decreased. He reports that his pain is also unchanged. He denies fever, any other pain, vomiting, diarrhea, or other systemic symptoms. Patient reports that overall he feels well in his usual state of health. Related Data Home Medications Medication Instructions Recorded Confirmed psyllium husk 0.52 gm PO DAILY 05/28/17 04/17/19 fluticasone propionate 50 2 spray TYREL PRN PRN 07/28/18 04/17/19 mcg/actuation nasal spray,suspension naproxen 500 mg tablet 500 mg PO BID PRN tab-cap 07/28/18 04/17/19 acetaminophen 2 cap PO PRN PRN 12/26/18 06/03/19 famotidine 40 mg PO DAILY 11/09/18 04/17/19 loratadine 10 mg capsule 10 mg PO PRN PRN #60 cap 03/02/19 04/17/19 lorazepam 0.5 mg tablet 0.5 mg PO .COMPLEX PRN #6 tab 03/02/19 04/17/19 tadalafil 5 mg tablet 5 mg PO DAILY #30 tab 04/05/19 04/17/19 amoxicillin-pot clavulanate 1 tab PO BID 7 Days #14 tab 04/16/19 04/17/19 [Augmentin] Previous Rx's Medication Instructions Recorded loratadine 10 mg capsule 10 mg PO PRN PRN #60 cap 03/02/19 lorazepam 0.5 mg tablet 0.5 mg PO .COMPLEX PRN #6 tab 03/02/19 tadalafil 5 mg tablet 5 mg PO DAILY #30 tab 04/05/19 amoxicillin-pot clavulanate 1 tab PO BID 7 Days #14 tab 04/16/19 [Augmentin] Allergies Allergy/AdvReac Type Severity Reaction Status Date / Time tamsulosin HCl [From Flomax] AdvReac Severe LETHARGIC Verified 04/17/19 09:10 lactose AdvReac Unknown INTOLERANT Verified 04/17/19 09:10 General Stated Complaint: Recheck JESSE: 4 Review of Systems Review of Systems Constitutional: denies fevers Eyes: denies eye pain ENT: denies facial pain, dental pain, sore throat Cardiovascular: denies chest pain Respiratory: denies cough GI: denies abdominal pain, vomiting, diarrhea : denies flank pain MSK: denies back pain, neck pain, reports in finger as above Skin: reports rash as above Neuro: denies numbness, weakness PFSH Medical History Enlarged prostate with lower urinary tract symptoms (LUTS) (Chronic 07/07/16) Gastro-esophageal reflux disease with esophagitis (Chronic) Generalized osteoarthrosis (Chronic) Abdominal pain (Resolved) Social History Smoking/Tobacco Use Status: Never Alcohol Intake: current Alcohol Intake frequency: 0-2 drinks per day Drug use: Never Substance use type: does not use Household members: other Details: 2 Pets and animals: Yes Pets and animals: cat(s) Duration: 30-45 minutes/day Frequency: daily Christin/Zoroastrianism: Moravian Special christin needs: No Do you feel safe at home: Yes Do you feel safe in your relationship?: Yes Exam Narrative Exam Narrative: Constitutional: well and [id number], pleasant, conversing normally HENT: head atraumatic/normocephalic/normal inspection, mucous membranes moist Eyes: conjunctiva normal, sclera normal, pupils 3mm b/l Neck: no stridor, normal ROM, trachea midline Resp: normal work of breathing, LCTAB Cardio: normal rate, normal rhythm Skin: warm, dry, normal color, no rash Neuro: alert, not altered, grossly non-focal, normal tone Ext: right 4th digit with volar erythema from the PIP joint to the DIP joint, also mild dorsal erythema over the DIP. No pain with passive extension, finger is not held in flexion. Tenderness over volar and dorsal aspects of digit is equal and mild. Otherwise normal exam of the right hand. Radial pulse intact, brisk cap refill to distal aspect of digit, normal sensation Psych: normal mood, normal affect, normal behavior Course Vital Signs Temperature 36.9 C 04/17/19 09:08 Pulse 63 04/17/19 09:08 Respiratory Rate 20 04/17/19 09:08 Blood Pressure 132/74 04/17/19 09:08 Pulse Oximetry 97 04/17/19 09:08 Temperature 36.9 C 04/17/19 09:08 Temperature Source Temporal Artery Scan 04/17/19 09:08 Pulse 63 04/17/19 09:08 Respiratory Rate 20 04/17/19 09:08 Respiratory Effort Non-Labored 04/17/19 09:08 Blood Pressure 132/74 04/17/19 09:08 Pulse Oximetry 97 04/17/19 09:08 Pain Level 3 04/17/19 09:08
== END 2019-04-17 10:25 | disposition home or self-care (01) ==
PROVIDERS: Emergency Provider Student in an Organized Health Care Education/Training Program; PCP Family Medicine
DX: L03.011 Cellulitis of right finger (principal)
CPT/HCPCS: 99283; 99282

== ENCOUNTER 2019-06-12 01:19 | Outpatient (CLI) | payer MEDICARE, BC, SELFPAY ==
--- NOTE | 2019-06-19 09:16 | HOLTER_ITS ---
DATE OF DICTATION: June 17, 2019 DATE OF RECORDING: June 13, 2019 ANALYSIS: June 15, 2019 REFERRING PHYSICIAN: Not mentioned. INDICATION: NSVT FINDINGS: 1. Baseline sinus rhythm with first-degree AV delay, 42-116 bpm, average 70 bpm. 2. Rare PAC, 0.4%, no SVT, no AF. 3. Rare PVC, 0.9%, no VT. 4. No significant pauses, few episodes of asymptomatic second-degree AV block, type Mobitz 1, between 5 and 6 a.m. 5. No symptoms recorded.
== END 2019-06-12 01:39 ==
PROVIDERS: PCP Family Medicine; Visit Provider Student in an Organized Health Care Education/Training Program
DX: I47.2 Ventricular tachycardia (principal); I44.1 Atrioventricular block, second degree
CPT/HCPCS: 93225

== ENCOUNTER 2019-06-15 11:35 | Outpatient (CLI) | payer MEDICARE, BC, SELFPAY | END 2019-06-15 11:55 | PROVIDERS: PCP Family Medicine; Visit Provider Student in an Organized Health Care Education/Training Program | DX: I47.2 Ventricular tachycardia (principal); I44.1 Atrioventricular block, second degree | CPT/HCPCS: 93226 ==

== ENCOUNTER → 2019-06-16 14:50 | Outpatient (BNVA) | payer MEDICARE, BC, SELFPAY | PROVIDERS: PCP Family Medicine; Visit Provider Urology | DX: N40.1 Benign prostatic hyperplasia with lower urinary tract symptoms (principal); R39.9 Unspecified symptoms and signs involving the genitourinary system | CPT/HCPCS: 99213 ==

== ENCOUNTER 2019-06-17 09:39 | Outpatient (CLI) | payer MEDICARE, BC, SELFPAY | END 2019-06-17 09:59 | PROVIDERS: PCP Family Medicine; Referring Provider Student in an Organized Health Care Education/Training Program; Visit Provider Internal Medicine Cardiovascular Disease | DX: I47.2 Ventricular tachycardia (principal); I44.1 Atrioventricular block, second degree | CPT/HCPCS: 93227 ==

== ENCOUNTER → 2019-09-04 09:35 | Outpatient (BNVA) | payer MEDICARE, BC, SELFPAY | PROVIDERS: PCP Family Medicine; Referring Provider Family Medicine; Visit Provider Internal Medicine Cardiovascular Disease | DX: I44.1 Atrioventricular block, second degree (principal); G47.33 Obstructive sleep apnea (adult) (pediatric) | CPT/HCPCS: 99204; 99215 ==

== ENCOUNTER 2019-10-11 00:49 | Outpatient (CLI) | payer MEDICARE, BC, SELFPAY ==
[2019-10-11 07:36] LABS: HCT 43.9 % (40.0-50.0); HGB 14.8 g/dL (13.5-17.5); Mean Corp. HGB Concentration 33.7 g/dL (32.0-36.0); Mean Corpuscular Hemoglobin 30.1 pg (27.0-33.0); Mean Corpuscular Volume 89.2 fL (80-95); Mean Platelet Volume 10.6 fL (8.0-11.0); Platelet Count 205 x1000/uL (130-400); RBC 4.92 m/cumm (4.50-6.00); RBC Distribution Width 12.5 % (11.8-14.1); White Blood Cell Count 4.32 k/cumm (4.4-10.8)
[2019-10-11 13:12] LABS: BUN 14 mg/dL (7-18); CREATININE 1.08 mg/dL (0.70-1.30); Calcium 8.7 mg/dL (8.5-10.1); Chloride 104 mmol/L (98-107); Glucose 89 mg/dL (74-106); Potassium 4.6 mmol/L (3.5-5.1); Sodium 142 mmol/L (136-145)
[2019-10-20 15:35] LABS: PSA, Screening 0.8 ng/mL (0-4.5)
== END 2019-10-11 01:09 ==
PROVIDERS: Urology; PCP Family Medicine; Visit Provider Family Medicine
DX: E78.5 Hyperlipidemia, unspecified (principal); D64.9 Anemia, unspecified; N40.1 Benign prostatic hyperplasia with lower urinary tract symptoms; Z12.5 Encounter for screening for malignant neoplasm of prostate
CPT/HCPCS: 36415; 80048; 84153; 85027

== ENCOUNTER → 2019-12-12 14:25 | Outpatient (BNVA) | payer MEDICARE, BC, SELFPAY | PROVIDERS: PCP Family Medicine; Referring Provider Family Medicine; Visit Provider Urology | DX: N40.1 Benign prostatic hyperplasia with lower urinary tract symptoms (principal); R39.11 Hesitancy of micturition | CPT/HCPCS: 99213 ==

== ENCOUNTER → 2019-12-28 10:26 | Outpatient (BNVA) | payer MEDICARE, BC, SELFPAY | PROVIDERS: PCP Family Medicine; Referring Provider Family Medicine; Visit Provider Urology | DX: N40.1 Benign prostatic hyperplasia with lower urinary tract symptoms (principal); R39.11 Hesitancy of micturition | CPT/HCPCS: 99213 ==

== ENCOUNTER → 2020-01-09 13:58 | Outpatient (BNVA) | payer MEDICARE, BC, SELFPAY | PROVIDERS: PCP Family Medicine; Referring Provider Family Medicine; Visit Provider Urology | DX: N40.1 Benign prostatic hyperplasia with lower urinary tract symptoms (principal); R39.11 Hesitancy of micturition; R39.12 Poor urinary stream; N13.8 Other obstructive and reflux uropathy | CPT/HCPCS: 99213 ==

== ENCOUNTER → 2020-01-16 10:28 | Outpatient (BNVA) | payer MEDICARE, BC, SELFPAY | PROVIDERS: PCP Family Medicine; Referring Provider Family Medicine; Visit Provider Urology | DX: N40.1 Benign prostatic hyperplasia with lower urinary tract symptoms (principal); N13.8 Other obstructive and reflux uropathy | CPT/HCPCS: 99212 ==

== ENCOUNTER → 2020-01-22 07:38 | Outpatient (BNVA) | payer MEDICARE, BC, SELFPAY | PROVIDERS: PCP Family Medicine; Referring Provider Family Medicine; Visit Provider Urology | DX: R69 Illness, unspecified (principal) ==

== ENCOUNTER 2020-01-22 08:59 | Inpatient (IN) | payer MEDICARE, BC, SELFPAY ==
[2020-01-22] VITALS (9 sets, daily range): BP systolic 101–134; BP diastolic 58–83; PULSE 55–64; RESP 13–19; TEMP 36.1–36.8; O2SAT 95–99
--- NOTE | 2020-01-22 09:28 | HPE_ITS ---
Date of service: 01/22/20 Time of Service: 09:28 Assessment and Plan Assessment and plan (1) Enlarged prostate with lower urinary tract symptoms (LUTS): Status: Chronic Assessment and plan: For cystoscopy with Transurethral Resection and Vaporization of Prostate Qualifiers: Lower urinary tract symptom detail: urinary obstruction Qualified Code(s): N40.1 - Benign prostatic hyperplasia with lower urinary tract symptoms; N13.8 - Other obstructive and reflux uropathy History of Present Illness History of Present Illness Chief Complaint: Bladder outlet obstruction Narrative: 1) Enlarged prostate with lower urinary tract symptoms (LUTS): The patient asked if any other conditions could lead to slowing of his urinary stream. I explained that diminished detrusor contraction could lead to hesitancy and a slow stream, but the patient has no known neurologic or musculoskeletal issues/diagnoses that would make detrusor underactivity likely. We certainly could do a urodynamic study to confirm, but the likelihood is that he will improve with a transurethral resection of the prostate. We again discussed potential side effects such as bleeding, infection, urethral stricture disease, retrograde ejaculation and unmasking urinary frequency and urgency symptoms. He would like to move ahead with surgery. He has had good success with spinal anesthesia in the past. We will go ahead and schedule the procedure as time allows. HPI Chief complaint: BPH with lower urinary tract symptoms This is a 64-year-old gentleman who has a history of lower urinary tract symptoms. As his symptoms have progressed, we have tried a number of different medical treatments. He has not responded to alpha blockers. He was unable to tolerate tamsulosin and most recently failed alfuzosin. He has had slight improvement with a daily dose of Cialis. His symptoms have become bothersome enough that he wants to move on to surgical treatment. The patient and I have had multiple discussions regarding the surgical treatment but he comes in with a few additional questions. He has not gone into retention. He has no fevers or chills Review of systems: He has a history of Mobitz 1 heart block. He was last seen by cardiology here at [facility] Exam Const Other: He looks well. He does not appear septic or toxic His chest wall motion is normal He is awake and alert Intake Visit Reasons: WANTS TO DISCUSS SURGERY, MED NOT WORKING Allergies Allergy/AdvReac Type Severity Reaction Status Date / Time tamsulosin HCl [From Flomax] AdvReac Severe LETHARGIC Verified 01/04/20 16:36 lactose AdvReac Unknown INTOLERANT Verified 01/04/20 16:36 [facility] Social History Smoking/Tobacco Use Status: Never Alcohol Intake: current Alcohol Intake frequency: 0-2 drinks per day Alcohol type: beer Drug use: Never Substance use type: does not use Caregiver/Support person: No Household members: spouse and other Details: 2 Housing: house Communication Needs: None Do you need help understanding health information?: Never Pets and animals: Yes Pets and animals: cat(s) Sexually active: Yes Do you think of yourself as: straight/heterosexual Current gender identity: male What is your relationship status?: How often do you talk on the phone with friends or family?: three or more times per week How often do you get together with friends or relatives?: twice per week How often do you attend congregational or hoahaoism services?: decline to answer Panel score (0-1 are the most socially isolated patients): 2 NHANES result reviewed/action taken: Yes What type of physical activity do you participate in: walking and bicycling Duration: 15-30 minutes/day Frequency: 5-6 times per week Christin/Shinto: Restorationist Special christin needs: No Seatbelt use: always Helmet use: Yes Helmet use: always Drive intox or ride w/intox 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 Do you feel safe at home: Yes Do you feel safe in your relationship?: Yes Questionnaire [place] SBIRT Screen Brief Intervene Refer Treat Smoking/Tobacco Use Status: Never [facility] Social History Smoking/Tobacco Use Status: Never Alcohol Intake: current Alcohol Intake frequency: 0-2 drinks per day Alcohol type: beer Drug use: Never Substance use type: does not use Caregiver/Support person: No Household members: spouse and other Details: 2 Housing: house Communication Needs: None Do you need help understanding health information?: Never Pets and animals: Yes Pets and animals: cat(s) Sexually active: Yes Do you think of yourself as: straight/heterosexual Current gender identity: male What is your relationship status?: How often do you talk on the phone with friends or family?: three or more times per week How often do you get together with friends or relatives?: twice per week How often do you attend congregational or hoahaoism services?: decline to answer Panel score (0-1 are the most socially isolated patients): 2 NHANES result reviewed/action taken: Yes What type of physical activity do you participate in: walking and bicycling Duration: 15-30 minutes/day Frequency: 5-6 times per week Christin/Shinto: Restorationist Special christin needs: No Seatbelt use: always Helmet use: Yes Helmet use: always Drive intox or ride w/intox 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 Do you feel safe at home: Yes Do you feel safe in your relationship?: Yes Meds Home Medications and Allergies Home Medications Medication Instructions Recorded Confirmed Type psyllium husk 0.52 gm PO DAILY 05/28/17 01/22/20 History acetaminophen 2 cap PO PRN PRN 11/09/18 01/22/20 History loratadine 10 mg capsule 10 mg PO PRN PRN #60 cap 03/02/19 01/22/20 Rx lorazepam 0.5 mg tablet 0.5 mg PO .COMPLEX PRN #6 tab 03/02/19 01/18/20 Rx naproxen sodium 220 mg capsule 220 mg PO BID PRN 04/19/19 01/22/20 History fluticasone propionate 50 2 spray TYREL PRN PRN #47.4 gm 07/10/19 01/18/20 Rx mcg/actuation nasal spray,suspension fluoxetine 20 mg tablet 20 mg PO DAILY #90 tab 12/18/19 01/22/20 Rx alfuzosin 10 mg tablet,extended 10 mg PO DAILY #30 tab 12/28/19 01/22/20 Rx release 24 hr cimetidine 300 mg PO BID 01/18/20 01/22/20 History Allergies Allergy/AdvReac Type Severity Reaction Status Date / Time tamsulosin HCl [From Flomax] AdvReac Severe LETHARGIC Verified 01/22/20 08:37 lactose AdvReac Unknown INTOLERANT Verified 01/22/20 08:37 Exam Resp Effort & Inspection: normal respiratory effort Auscultation: clear to auscultation bilaterally Cardio Rate: regular rate Rhythm: regular rhythm Results Last Vital Signs Temp 36.6 C 01/22/20 09:15 Pulse 64 01/22/20 09:15 Resp 18 01/22/20 09:15 BP 134/83 01/22/20 09:15 Pulse Ox 99 01/22/20 09:15
[2020-01-22] MEDS: Lactated Ringers 1,000 ML 80 ML IV (09:34)
[2020-01-22] MEDS: ceFAZolin 1 GM/50 ML BAG IVPB ×3 (09:54→23:27)
--- NOTE | 2020-01-22 10:01 | PROST_PTH ---
PATIENT: Denis Loomis III LOC: U#:[id number] AGE/SX: 64/M ROOM: 206 RE01/22/[address]: Joseph oMe MD : 1955 BED: A DIS: 01/23/2020 SPEC #: [id number] RECD: 01/22/20 12:39 STATUS: SOUT REQ #: [id number] HERIBERTO: 01/22/20 10:[address]: Joseph Moe DEPT: Surgical Specimen RECD BY: Debbie Tavera ENTERED: 01/22/20 12:39 SP TYPE: PROST OTHR DR: Devon Velasquez MD Tissues: 1 - PROSTATE CURRETTINGS Procedures: GROSS AND MICRO LEVEL 4 Comments: [id number]
[2020-01-22] MEDS: Lidocaine 2% Jelly 6 ML SYR (10:27)
--- NOTE | 2020-01-22 12:32 | NUR.NOTE ---
Nursing Note: 1210pm - PT ARRIVED FROM PACU S/P TURP. VSS. PT A&o X3. PT ABLE TO LIFT BILATERAL LEGS AND STATES HIS LEGS FEEL TINGLY. BLADDER IRRIGATION INITIATED IN PACU. PT ORDERED LUNCH. SCD'S ON ORDERED. LUNGS ARE CLEAR.
[2020-01-22] MEDS: Lactated Ringers 1,000 ML 100 ML IV (13:29)
--- NOTE | 2020-01-22 15:47 | ROE_ITS ---
DATE OF PROCEDURE: January 22, 2020
[2020-01-22] MEDS: Docusate Sodium 100 MG CAP PO (20:23)
[2020-01-23] MEDS: Lactated Ringers 1,000 ML 100 ML IV (00:03)
[2020-01-23 06:49] LABS: HCT 37.7 % (40.0-50.0); HGB 12.6 g/dL (13.5-17.5); Mean Corp. HGB Concentration 33.4 g/dL (32.0-36.0); Mean Corpuscular Hemoglobin 29.5 pg (27.0-33.0); Mean Corpuscular Volume 88.3 fL (80-95); Mean Platelet Volume 10.5 fL (8.0-11.0); Platelet Count 187 x1000/uL (130-400); RBC 4.27 m/cumm (4.50-6.00); RBC Distribution Width 12.6 % (11.8-14.1); White Blood Cell Count 9.54 k/cumm (4.4-10.8)
[2020-01-23] MEDS: Acetaminophen 325 MG TAB 650 MG PO (06:55)
[2020-01-23 06:59] LABS: BUN 10 mg/dL (7-18); CREATININE 0.82 mg/dL (0.70-1.30); Chloride 103 mmol/L (98-107); Glucose 100 mg/dL (74-106); Potassium 3.8 mmol/L (3.5-5.1); Sodium 139 mmol/L (136-145)
[2020-01-23 07:28] VITALS: BP 134/76; PULSE 62; RESP 18; TEMP 36.9; O2SAT 95
[2020-01-23] MEDS: Docusate Sodium 100 MG CAP PO (08:20)
[2020-01-23] MEDS: FLUoxetine 20 MG CAP PO (08:20)
--- NOTE | 2020-01-23 08:31 | PDOC.CMIN ---
- If Service Date Differs Date of service: 01/23/20 Time of Service: 08:31 Care Management Initial Assess REASON FOR HOSPITALIZATION:: Enlarged prostate PAST MEDICAL HISTORY/PAST SURGICAL HISTORY:: Past medical history: enlarged prostate, GERD, osteoarthritis. Past Surgical history: Arthro[plasty of knee. Bilateral TKR ADVANCE DIRECTIVES:: None on file INSURANCE COVERAGE / FINANCIAL ISSUES:: Medicare. BC BS PRIMARY CARE PHYSICIAN:: Devon Velasquez MD PATIENT/FAMILY EDUCATION NEEDS:: Follow up with PCP and Discharge Plan of care TRANSPORTATION:: via private vehicle with
--- NOTE | 2020-01-23 09:36 | W.PM.PROGNOT ---
Date of Service Date of service: 01/23/20 Time of Service: 09:36 Assessment and Plan Assessment and plan (1) Enlarged prostate with lower urinary tract symptoms (LUTS): Status: Chronic Assessment and plan: We will discharge him to home with his Reich catheter in place. He will come to the office later this week for voiding trial. He will have a follow-up appointment about a week later to review his surgical pathology. Qualifiers: Lower urinary tract symptom detail: urinary obstruction Qualified Code(s): N40.1 - Benign prostatic hyperplasia with lower urinary tract symptoms; N13.8 - Other obstructive and reflux uropathy Subjective Subjective Interval history since last seen: He has had some bladder discomfort overnight but no episodes of clot retention. His urine has remained pink-tinged but transparent after his bladder irrigation was discontinued Exam Narrative Exam Narrative: He is in no obvious distress. He is cooperative. His vital signs are documented elsewhere His urine is pink with no clots His labs are stable He is awake and alert Objective Objective Clinical Data: Abnormal lab results 01/23/20 01/23/20 Range/Units 06:32 06:32 RBC 4.27 L (4.50-6.00) m/cumm Hgb 12.6 L (13.5-17.5) g/dL Hct 37.7 L (40.0-50.0) % Calcium 8.0 L (8.5-10.1) mg/dL Vital Signs Temperature 36.9 C 01/23/20 07:28 Temperature Source Tympanic 01/23/20 07:28 Pulse 62 01/23/20 07:28 Pulse Rhythm Regular 01/23/20 03:18 Respiratory Rate 18 01/23/20 07:28 Respiratory Effort Non-Labored 01/23/20 03:18 Respiratory Depth Normal 01/23/20 03:18 Respiratory Pattern Normal 01/23/20 03:18 Blood Pressure 134/76 01/23/20 07:28 Pulse Oximetry 95 01/23/20 07:28 Respiratory End-tidal CO2 33 01/22/20 11:46 Oxygen Delivery Method Room Air 01/23/20 07:28 Oxygen Flow Rate 0 01/23/20 07:28 Pain Level 0 01/23/20 07:28 Intake & Output 01/22/20 01/22/20 01/23/20 11:59 23:59 11:59 Intake Total 500 / 1790 1290 / 1790 Balance 500 / 1790 1290 / 1790 Weight 76.5 kg Intake: IV 500 / 1550 1050 / 1550 Oral 240 / 240 Other: Urine Color [place] Urine Appearance Clear Clear Clear Emesis Description None Laboratory Results WBC 9.54 k/cumm (4.4-10.8) 01/23/20 06:32 RBC 4.27 m/cumm (4.50-6.00) L 01/23/20 06:32 Hgb 12.6 g/dL (13.5-17.5) L 01/23/20 06:32 Hct 37.7 % (40.0-50.0) L 01/23/20 06:32 MCV 88.3 fL (80-95) 01/23/20 06:32 MCH 29.5 pg (27.0-33.0) 01/23/20 06:32 MCHC 33.4 g/dL (32.0-36.0) 01/23/20 06:32 RDW 12.6 % (11.8-14.1) 01/23/20 06:32 Plt Count 187 x1000/uL (130-400) 01/23/20 06:32 MPV 10.5 fL (8.0-11.0) 01/23/20 06:32 Sodium 139 mmol/L (136-145) 01/23/20 06:32 Potassium 3.8 mmol/L (3.5-5.1) 01/23/20 06:32 Chloride 103 mmol/L (98-107) 01/23/20 06:32 Carbon Dioxide 28.0 mmol/L (21.0-32.0) 01/23/20 06:32 Anion Gap 8.0 mmol/L (3-11) 01/23/20 06:32 BUN 10 mg/dL (7-18) 01/23/20 06:32 Creatinine 0.82 mg/dL (0.70-1.30) 01/23/20 06:32 Estimated GFR/1.73 m2 >= 60.00 (mL/min/1.73m2) 01/23/20 06:32 Glucose 100 mg/dL (74-106) 01/23/20 06:32 Calcium 8.0 mg/dL (8.5-10.1) L 01/23/20 06:32
--- NOTE | 2020-01-23 09:38 | DSE_ITS ---
Date of service: 01/23/20 Time of Service: 09:38 DS: Diagnosis Discharge Diagnosis (1) Enlarged prostate with lower urinary tract symptoms (LUTS): Status: Chronic Discharge Plan Disposition Patient Disposition: HOME Condition: Stable Discharge Details Reason For Visit: BPH WITH LUTS Admit Date/Time: 01/22/20 08:59 Admit Provider: Joseph Moe Attending Provider: Joseph Moe Primary Care Provider: Devon Velasquez [facility] Hospital Course Hospital Course: The patient was brought to the operating room on 01/22/2020. He underwent transurethral resection of the prostate with vaporization using bipolar cautery. In the postoperative period he irrigating catheter was left in place. Continuous bladder irrigation is maintained for 24 hours. On postoperative day #1, the irrigant was still pink-tinged but transparent. He is tolerating oral medications. He will be discharged to home. Home Meds and New Rx's Prescriptions: No Action naproxen sodium 220 mg capsule 220 mg PO BID PRNRF: 0 alfuzosin 10 mg tablet extended release 24 hr 10 mg PO DAILY Qty: 30 RF: 12 lorazepam 0.5 mg tablet 0.5 mg PO .COMPLEX PRN (Reason: anxiety) Qty: 6 RF: 0 loratadine 10 mg capsule 10 mg PO PRN PRN (Reason: allergy symptoms) Qty: 60 RF: 2 psyllium husk 0.52 GM capsule 0.52 gm PO DAILY RF: 0 fluticasone propionate 50 mcg/actuation spray,suspension 2 spray TYREL PRN PRN (Reason: allergy symptoms) Qty: 47.4 RF: 4 fluoxetine 20 mg tablet 20 mg PO DAILY Qty: 90 RF: 4 cimetidine 300 mg Tablet 300 mg PO BID RF: 0 acetaminophen 500 mg Capsule 2 cap PO PRN PRNRF: 0 Discharge Instructions Additional Instructions: Instruct patient with use of the leg bag and large drainage bag for nighttime Follow-up at the end of this week for voiding trial Follow-up appointment in 10 to 14 days for pathology report Patient may take [id number] Tylenol or NSAIDs for pain control. Prescription for oxybutynin sent to pharmacy-can be used for bladder spasms May use Metamucil as a stool softener and MiraLAX as a laxative as needed Okay to shower with the catheter in place Activity:: No straining or lifting over 10 to 20 pounds for the next 2 weeks Equipment/Supplies:: Reich to leg bag Diet:: As Tolerated Discharge Orders Discharge Orders: Discharge Order (Routine); Ordered 01/23/20 Ordered By: Joseph Moe DS: Summary Status at Discharge Functional status at discharge: independent ambulation Overall status at discharge: patient is back to baseline Mental Status: mental status grossly normal Speech and Movement: speech and movement normal Mood: congruent mood Affect: normal affect Exam Narrative Exam Narrative: At the time of discharge she looks well His vital signs are documented elsewhere His chest wall motion is normal. His lungs are clear. His abdomen is soft with no guarding or rebound tenderness. His bladder is not distended. Cardiac exam shows a regular rate and rhythm His Reich catheter is in place and is draining pink-tinged urine with no clots He is awake and alert Psych Mental Status: mental status grossly normal Speech and Movement: speech and movement normal Mood: congruent mood Affect: normal affect DS: Data Vitals/I&O Vitals and I&O: Vital Signs Temperature 36.9 C 01/23/20 07:28 Temperature Source Tympanic 01/23/20 07:28 Pulse 62 01/23/20 07:28 Pulse Rhythm Regular 01/23/20 03:18 Respiratory Rate 18 01/23/20 07:28 Respiratory Effort Non-Labored 01/23/20 03:18 Respiratory Depth Normal 01/23/20 03:18 Respiratory Pattern Normal 01/23/20 03:18 Blood Pressure 134/76 01/23/20 07:28 Pulse Oximetry 95 01/23/20 07:28 Respiratory End-tidal CO2 33 01/22/20 11:46 Oxygen Delivery Method Room Air 01/23/20 07:28 Oxygen Flow Rate 0 01/23/20 07:28 Pain Level 0 01/23/20 07:28 Intake & Output 01/22/20 01/22/20 01/23/20 11:59 23:59 11:59 Intake Total 500 / 1790 1290 / 1790 Balance 500 / 1790 1290 / 1790 Weight 76.5 kg Intake: IV 500 / 1550 1050 / 1550 Oral 240 / 240 Other: Urine Color [place] Urine Appearance Clear Clear Clear Emesis Description None Data Completed and Pending Labs on day of discharge: Labs from last 24 hours 01/23/20 01/23/20 06:32 06:32 WBC 9.54 RBC 4.27 L Hgb 12.6 L Hct 37.7 L MCV 88.3 MCH 29.5 MCHC 33.4 RDW 12.6 Plt Count 187 MPV 10.5 Sodium 139 Potassium 3.8 Chloride 103 Carbon Dioxide 28.0 Anion Gap 8.0 BUN 10 Creatinine 0.82 Estimated GFR/1.73 m2 >= 60.00 Glucose 100 Calcium 8.0 L PFSH Medical History Abdominal pain (Resolved) Enlarged prostate with lower urinary tract symptoms (LUTS) (Chronic 07/07/16) Gastro-esophageal reflux disease with esophagitis (Chronic) EGD 04/23 and 09/27 chronic active gastritis + esophagitis (2001); EGD 2006 + esophagitis Generalized osteoarthrosis (Chronic) 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 Surgical History (Updated 01/22/20 @ 09:47 by Davina Renee) Arthroplasty of knee (Inactive) left knee; H/O bone chip left knee History of knee replacement (Chronic) bilateral tka Social History Smoking/Tobacco Use Status: Never Alcohol Intake: current Alcohol Intake frequency: 0-2 drinks per day Alcohol type: beer Drug use: Never Substance use type: does not use Caregiver/Support person: No Household members: spouse and other Details: 2 Housing: house Communication Needs: None Do you need help understanding health information?: Never Pets and animals: Yes Pets and animals: cat(s) Sexually active: Yes Do you think of yourself as: straight/heterosexual Current gender identity: male What is your relationship status?: How often do you talk on the phone with friends or family?: three or more times per week How often do you get together with friends or relatives?: twice per week How often do you attend religious or episcopal services?: decline to answer Panel score (0-1 are the most socially isolated patients): 2 NHANES result reviewed/action taken: Yes What type of physical activity do you participate in: walking and bicycling Duration: 15-30 minutes/day Frequency: 5-6 times per week Christin/Shinto: Moravian Special christin needs: No Seatbelt use: always Helmet use: Yes Helmet use: always Drive intox or ride w/intox port cdl a driver: No Do you feel safe at home: Yes Do you feel safe in your relationship?: Yes
== END 2020-01-23 13:14 | disposition home or self-care (01) | DRG 713 ==
LOC: PDS 09:04 → MS 12:23
PROVIDERS: Admitting Provider Urology; PCP Family Medicine; Visit Provider Urology
PROC: 0VT08ZZ Resection of Prostate, Via Natural or Artificial Opening Endoscopic (ICD-10-PCS; CPT 52601; principal; 2020-01-22 10:00)
DX: N40.1 Benign prostatic hyperplasia with lower urinary tract symptoms (principal); N13.8 Other obstructive and reflux uropathy; N34.2 Other urethritis; I44.1 Atrioventricular block, second degree; F32.9 Major depressive disorder, single episode, unspecified; K21.0 Gastro-esophageal reflux disease with esophagitis
CPT/HCPCS: 52601; 36415; 80048; 85027; 88305; NC; J0690; J1100; J2250; J2405

== ENCOUNTER → 2020-01-26 07:57 | Outpatient (BNVA) | payer MEDICARE, BC, SELFPAY | PROVIDERS: PCP Family Medicine; Referring Provider Family Medicine; Visit Provider Urology | DX: N40.1 Benign prostatic hyperplasia with lower urinary tract symptoms (principal); N13.8 Other obstructive and reflux uropathy; Z46.6 Encounter for fitting and adjustment of urinary device ==

== ENCOUNTER → 2020-02-01 11:44 | Outpatient (BNVA) | payer MEDICARE, BC, SELFPAY | PROVIDERS: PCP Family Medicine; Referring Provider Family Medicine; Visit Provider Urology | DX: Z48.816 Encounter for surgical aftercare following surgery on the genitourinary system (principal); N40.1 Benign prostatic hyperplasia with lower urinary tract symptoms; N13.8 Other obstructive and reflux uropathy | CPT/HCPCS: 81003 ==

== ENCOUNTER 2020-02-01 12:28 | Outpatient (REF) | payer MEDICARE, BC, SELFPAY | END 2020-02-01 12:48 | LOC: LBN 12:28 | PROVIDERS: PCP Family Medicine; Visit Provider Urology | DX: N40.1 Benign prostatic hyperplasia with lower urinary tract symptoms (principal) | CPT/HCPCS: 87086 ==

== ENCOUNTER → 2020-02-02 08:28 | Outpatient (BNVA) | payer MEDICARE, BC, SELFPAY | PROVIDERS: PCP Family Medicine; Referring Provider Family Medicine; Visit Provider Urology | DX: Z48.816 Encounter for surgical aftercare following surgery on the genitourinary system (principal); N40.1 Benign prostatic hyperplasia with lower urinary tract symptoms; N13.8 Other obstructive and reflux uropathy ==

== ENCOUNTER → 2020-02-06 13:45 | Outpatient (BNVA) | payer MEDICARE, BC, SELFPAY | PROVIDERS: PCP Family Medicine; Referring Provider Family Medicine; Visit Provider Urology | DX: N40.1 Benign prostatic hyperplasia with lower urinary tract symptoms (principal); N13.8 Other obstructive and reflux uropathy ==

== ENCOUNTER → 2020-03-19 15:36 | Outpatient (BNVA) | payer MEDICARE, BC, SELFPAY | PROVIDERS: PCP Family Medicine; Referring Provider Family Medicine; Visit Provider Urology | DX: N32.81 Overactive bladder (principal); N40.1 Benign prostatic hyperplasia with lower urinary tract symptoms; N13.8 Other obstructive and reflux uropathy | CPT/HCPCS: 99442 ==

== ENCOUNTER → 2020-05-30 12:56 | Outpatient (BNVA) | payer MEDICARE, BC, SELFPAY | PROVIDERS: PCP Family Medicine; Referring Provider Family Medicine; Visit Provider Physical Therapy Assistant | DX: K21.9 Gastro-esophageal reflux disease without esophagitis (principal); Z01.818 Encounter for other preprocedural examination | CPT/HCPCS: 99213 ==

== ENCOUNTER 2020-05-31 08:11 | Outpatient (CLI) | payer MEDICARE, BC, SELFPAY ==
[2020-06-02 17:22] LABS: COVID-19 RT-PCR Result NEGATIVE (Negative)
== END 2020-05-31 08:31 ==
PROVIDERS: PCP Family Medicine; Visit Provider Physical Therapy Assistant
DX: Z11.59 Encounter for screening for other viral diseases (principal)
CPT/HCPCS: U0003

== ENCOUNTER 2020-06-03 12:21 | Day surgery (SDC) | payer MEDICARE, BC, SELFPAY ==
--- NOTE | 2020-06-03 07:04 | W.PM.ENDDOP ---
Date of service: 06/03/20 Time of Service: 13:45 Endoscopy Report DATE OF PROCEDURE: 06/03/20 PRE-OP DIAGNOSIS: Dysphagia and reflux POST-OP DIAGNOSIS: other (mild gastritis and mild esophagitis) PROCEDURE: EGD with biopsies SURGEON: Mayte Padilla ANESTHESIA: other (General/ ASA 2/Chiqui Salazar, CATERINA) ESTIMATED BLOOD LOSS: 2 PATHOLOGY: other (Antrum bx, GE junction bx) COMPLICATIONS: None DISPOSITION: same day INDICATIONS: Patient expresses persistent symptoms associated with reflux. Possible stricture with associated feelings of food getting stuck when swallowing. Reviewed lifestyle changes to reduce GERD symptoms such as avoiding caffeine and chocolate, sitting upright after meals for at least 2 hours. -Discussed Upper endoscopy procedure and the need to be NPO after midnight the night prior. Discussed possible complications of the procedure to include bleeding, pain, perforation, missed small lesion/polyp/ulcers, sore throat, aspiration and adverse reaction to the medications or sedation. Questions were answered to patient?s satisfaction. No guarantees were implied or given. FINDINGS: mild inflammation of the stomach and esophagus. NO hiatal hernia and no ulcers noted PROCEDURE DESCRIPTION: After informed consent was obtained the patient was take to the procedure room and placed in a supine position. Monitors were applied and a time out was done. The patients name, date of , procedure type, allergies to medications and metal in their body was reviewed. A bite block was placed and the patient was sedated. Once sedated and comfortable the gastroscope was advanced through the oropharynx which was grossly normal into the esophagus. The proximal and mid-esophagus were normal. In the distal esophagus there was mild inflammation noted. The scope was advanced into the stomach and through the pylorus into the 3rd portion of the duodenum. The duodenum was noted to be normal. The scope was retracted back into the stomach and biopsies were done to rule out H. pylori. There were no ulcers. The scope was retro-flexed. The cardia and fundus were noted to be normal. There was no hiatal hernia noted. The scope was retracted back into the esophagus and biopsies were done of the GE junction to rule out Castellano's. The Z line was regular. The GE junction was at 35 cm. The scope was removed and the patient was woken up and taken back to [facility] in stable condition. Follow up: 2 weeks. I will try the patient on Omperazole 40 mg daily and see if this helps his symptoms.
--- NOTE | 2020-06-03 07:05 | W.PM.DSUDISC ---
Discharge Plan Disposition Patient Disposition: HOME Condition: Stable Discharge Details Reason For Visit: GERD Attending Provider: Mayte Padilla Primary Care Provider: Devon Velasquez Home Meds and New Rx's Prescriptions: New esomeprazole magnesium 40 mg capsule,delayed release(DR/EC) 40 mg PO DAILY Qty: 30 RF: 0 Continued naproxen sodium 220 mg capsule 220 mg PO BID PRNRF: 0 fluoxetine 20 mg tablet 40 mg PO DAILY Qty: 180 RF: 4 lorazepam 0.5 mg tablet 0.5 mg PO .COMPLEX PRN (Reason: anxiety) Qty: 6 RF: 0 loratadine 10 mg capsule 10 mg PO PRN PRN (Reason: allergy symptoms) Qty: 60 RF: 2 psyllium husk 0.52 GM capsule 0.52 gm PO DAILY RF: 0 fluticasone propionate 50 mcg/actuation spray,suspension 2 spray TYREL PRN PRN (Reason: allergy symptoms) Qty: 47.4 RF: 4 acetaminophen 500 mg Capsule 2 cap PO PRN PRNRF: 0 Discontinued famotidine 40 mg tablet 40 mg PO DAILY Qty: 90 RF: 3 Discharge Instructions Instructions: Diet for Stomach Ulcers and Gastritis (ED), Gastritis (DC), Esophagitis (DC) Additional Instructions: Findings: mild inflammation of the stomach and esophagus Follow up: 2 weeks in the office Please call if you develop: fevers >101.5 Nausea or Vomiting Abdominal pain that is not transient DAY SURGERY UNIT POST ENDOSCOPY INSTRUCTIONS 1. Because there will be medication in your system for the next 24 hours, you may feel a little sleepy. Your coordination will be affected. Therefore: a. Do not drive or operate dangerous equipment for 24 hours. b. Do not drink alcohol beverages for 24 hours (not even beer). c. Plan to go home and rest for the day. 2. Generally there are no restrictions on your activity after a day or so has gone by, but you may feel a bit fatigued for a few days. 3 After you arrive home you may have a light meal and return to a normal diet as you can tolerate it without feeling sick to your stomach. 4. After surgery, you may feel pain or discomfort. This should be only transient, but if it persists please contact your doctor. 5. If there are any questions regarding the findings of your procedure, please feel free to contact your doctor. 6. If you are unable to contact your doctor with a problem, contact the [facility] at [phone]. 6. Continue all your regular medications unless directed otherwise. I understand the above instructions and have no questions. Signature of Patient or Responsible Adult Escort Date/Time Name of Responsible Adult Escort Signature of Nurse Date/Time Activity:: Activity as Tolerated Diet:: As Tolerated Discharge Orders Discharge Orders: Discharge Order (Routine); Ordered 06/03/20 Ordered By: Mayte Padilla
[2020-06-03 12:35] VITALS: BP 127/81; PULSE 64; RESP 18; TEMP 36.5; O2SAT 96
[2020-06-03] MEDS: Lactated Ringers 1,000 ML 80 ML IV (12:51)
--- NOTE | 2020-06-03 13:47 | STOM_PTH ---
PATIENT: Denis Loomis III LOC: [facility] U#:[id number] AGE/SX: 65/M ROOM: RE06/03/[address]: Mayte Padilla MD : 1955 BED: DIS: 06/03/2020 SPEC #: [id number] RECD: 06/03/20 14:41 STATUS: GAL[place] REQ #: [id number] HERIBERTO: 06/03/20 13:[address]: Mayte Padilla DEPT: Surgical Specimen RECD BY: Debbie Tavera ENTERED: 06/03/20 14:41 SP TYPE: STOMACH OTHR DR: Devon Velasquez MD Tissues: 1 - STOMACH BIOPSY 2 - ESOPHAGUS BIOPSY Procedures: GROSS AND MICRO LEVEL 4 Comments: [id number]
[2020-06-03 14:30] VITALS: BP 118/71; PULSE 58; RESP 16; TEMP 36.2; O2SAT 96
== END 2020-06-03 14:54 | disposition home or self-care (01) ==
LOC: SUR 12:21
PROVIDERS: PCP Family Medicine; Visit Provider Surgery
PROC: 0DJ68ZZ Inspection of Stomach, Via Natural or Artificial Opening Endoscopic (ICD-10-PCS; CPT 43235; principal; 2020-06-03 13:30)
DX: K21.9 Gastro-esophageal reflux disease without esophagitis (principal); R13.10 Dysphagia, unspecified; K29.50 Unspecified chronic gastritis without bleeding; K31.89 Other diseases of stomach and duodenum
CPT/HCPCS: 43239; 88305; J2001; J2704

== ENCOUNTER → 2020-06-18 10:32 | Outpatient (BNVA) | payer MEDICARE, BC, SELFPAY | PROVIDERS: PCP Family Medicine; Referring Provider Family Medicine; Visit Provider Urology | DX: N40.1 Benign prostatic hyperplasia with lower urinary tract symptoms (principal); N13.8 Other obstructive and reflux uropathy | CPT/HCPCS: 99213; 99442 ==

== ENCOUNTER → 2020-06-27 09:16 | Outpatient (BNVA) | payer MEDICARE, BC, SELFPAY | PROVIDERS: PCP Nurse Practitioner Family; Referring Provider Family Medicine; Visit Provider Urology | DX: N40.1 Benign prostatic hyperplasia with lower urinary tract symptoms (principal); N13.8 Other obstructive and reflux uropathy | CPT/HCPCS: 99212; 99441 ==

== ENCOUNTER → 2020-06-28 07:54 | Outpatient (BNVA) | payer MEDICARE, BC, SELFPAY | PROVIDERS: PCP Nurse Practitioner Family; Referring Provider Family Medicine; Visit Provider Surgery | DX: K21.0 Gastro-esophageal reflux disease with esophagitis (principal); K29.00 Acute gastritis without bleeding | CPT/HCPCS: 99212; 99213 ==

== ENCOUNTER 2020-07-19 02:09 | Outpatient (CLI) | payer MEDICARE, BC, SELFPAY ==
[2020-07-21 06:27] LABS: Patient Race White; SARS-CoV-2 RNA Undetected (Undetected); SARS-CoV-2 Specimen Source Nasopharynx
== END 2020-07-19 02:29 ==
PROVIDERS: PCP Nurse Practitioner Family; Visit Provider Family Medicine
DX: Z11.59 Encounter for screening for other viral diseases (principal)
CPT/HCPCS: U0003

== ENCOUNTER → 2020-09-24 09:02 | Outpatient (BNVA) | payer MEDICARE, BC, SELFPAY | PROVIDERS: PCP Nurse Practitioner Family; Referring Provider Nurse Practitioner Family; Visit Provider Urology | DX: N40.1 Benign prostatic hyperplasia with lower urinary tract symptoms (principal); R39.12 Poor urinary stream | CPT/HCPCS: 52000; 81003; 99212 ==

== ENCOUNTER 2020-10-04 04:16 | Outpatient (CLI) | payer MEDICARE, BC, SELFPAY ==
--- NOTE | 2020-10-04 06:45 | DI.CT_ITS ---
EXAM: CT HEAD WO/W CLINICAL HISTORY: vertigo , visual change,R42. TECHNIQUE: Imaging Protocol: Axial computed tomography images with coronal and sagittal reformatted images were created and reviewed. CONTRAST MATERIAL: Intravenous: Omnipaque 350 Contrast volume:100 mL COMPARISON: No exams were available for comparison FINDINGS: Ventricles and Extra axial spaces: Normal in size and morphology for the patient's age. Hemorrhage: None. Cerebral parenchyma: Normal. Enhancement: No suspicious enhancement. [place]: Unremarkable. Midline shift: None. Brainstem/Cerebellum: Normal. Calvarium: Normal. Visualized Paranasal sinuses/Mastoids: Clear. Pituitary gland: Unremarkable. The infundibulum is unremarkable. IMPRESSION: Normal CT scan of the head. RADIATION DOSE DELIVERED: 1,465.22mGy.cm Total DLP 1,465.22mGy.cm Total DLP DATA REPOSITORY: All CT scans at this facility are submitted to the National Radiology Data Registry (NRDR) Dose Index Registry (DIR) with the [employer] (ACR). RADIATION OPTIMIZATION: All CT scans at this facility use at least one of these dose optimization te chniques: automated exposure control; mA and/or kV adjustment per patient size (includes targeted exa ms where dose is matched to clinical indication); or iterative reconstruction.
[2020-10-04 09:01] LABS: CREATININE 0.87 mg/dL (0.70-1.30)
[2020-10-04] MEDS: Omnipaque 350 MG/ML 100 ML BTL IV (09:15)
[2020-10-04] MEDS: Normal Saline - Diluent 50 ML VIAL IV (09:16)
== END 2020-10-04 04:36 ==
PROVIDERS: PCP Nurse Practitioner Family; Visit Provider Emergency Medicine
DX: R42 Dizziness and giddiness (principal)
CPT/HCPCS: 70470; 82565; J3490

== ENCOUNTER → 2021-04-29 09:29 | Outpatient (BNVA) | payer MEDICARE, BC, SELFPAY | PROVIDERS: PCP Nurse Practitioner Family; Referring Provider Nurse Practitioner Family; Visit Provider Urology | DX: N40.1 Benign prostatic hyperplasia with lower urinary tract symptoms (principal); R68.82 Decreased libido | CPT/HCPCS: 81003; 99213 ==

== ENCOUNTER 2021-04-29 18:01 | Outpatient (REF) | payer MEDICARE, BC, SELFPAY ==
[2021-05-02 16:02] LABS: Testosterone, Total 550 ng/dL (240-950)
== END 2021-04-29 18:02 | disposition home or self-care (01) ==
LOC: LBN 18:01
PROVIDERS: PCP Nurse Practitioner Family; Visit Provider Urology
DX: R68.82 Decreased libido (principal); N40.1 Benign prostatic hyperplasia with lower urinary tract symptoms
CPT/HCPCS: 84403

== ENCOUNTER 2021-06-09 02:11 | Outpatient (CLI) | payer MEDICARE, BC, SELFPAY ==
[2021-06-09 07:22] LABS: HCT 40.3 % (40.0-50.0); HGB 13.3 g/dL (13.5-17.5); MCH 28.9 pg (27.0-33.0); MCV 87.6 fL (80-95); MPV 10.6 fL (8.0-11.0); Platelet Count 204 10^3/uL (130-400); RDW 12.7 % (11.8-14.1); RDW-SD 40.8 fL; WBC 4.08 10^3/uL (4.4-10.8)
[2021-06-09 07:31] LABS: Hemoglobin A1C 5.9 % (<5.7)
[2021-06-09 08:06] LABS: Iron 39 ug/dL (65-175)
[2021-06-09 08:17] LABS: ALT 19 U/L (16-63); AST 17 U/L (15-37); Albumin 3.4 g/dL (3.4-5.0); Alkaline Phosphatase 71 U/L (46-116); Anion Gap 8.3 mmol/L (3-11); BUN 12 mg/dL (7-18); Bilirubin, Total 0.7 mg/dL (0.2-1.0); CO2 29.7 mmol/L (21.0-32.0); CREATININE 0.8 mg/dL (0.70-1.30); Calcium 8.7 mg/dL (8.5-10.1); Calculated LDL 117 mg/dL (<100); Chloride 104 mmol/L (98-107); Cholesterol 166 mg/dL (<200); Ferritin 19 ng/mL (26-388); Glucose 95 mg/dL (74-106); HDL Cholesterol 32 mg/dL (40-60); Potassium 4.1 mmol/L (3.5-5.1); Sodium 142 mmol/L (136-145); Total Protein 6.9 g/dL (6.4-8.2); Triglyceride 89 mg/dL (<150)
[2021-06-09 08:27] LABS: Vitamin D 25 Total 28.9 ng/mL (30-100)
== END 2021-06-09 02:12 | disposition home or self-care (01) ==
LOC: LBO 02:11
PROVIDERS: PCP Nurse Practitioner Family; Visit Provider Nurse Practitioner Family
DX: E78.5 Hyperlipidemia, unspecified (principal); Z83.49 Family history of other endocrine, nutritional and metabolic diseases; K29.00 Acute gastritis without bleeding; R73.01 Impaired fasting glucose; M85.88 Other specified disorders of bone density and structure, other site; D64.9 Anemia, unspecified
CPT/HCPCS: 36415; 80053; 80061; 82306; 85027; 82728; 83036; 83540

== ENCOUNTER → 2021-07-15 08:32 | Outpatient (BNVA) | payer MEDICARE, BC, SELFPAY | PROVIDERS: PCP Nurse Practitioner Family; Referring Provider Nurse Practitioner Family; Visit Provider Urology | DX: N40.1 Benign prostatic hyperplasia with lower urinary tract symptoms (principal) | CPT/HCPCS: 99213 ==

== ENCOUNTER 2021-07-24 02:16 | Outpatient (CLI) | payer MEDICARE, BC, SELFPAY ==
--- NOTE | 2021-07-24 06:45 | DI.DEXA_ITS ---
Exam(s) XR DEXA BONE DENSITY W/WO ARTUR EXAM: XR DEXA BONE DENSITY W/WO ARTUR CLINICAL HISTORY: f/u osteopenia,m85.88 TECHNIQUE: Routine DEXA evaluation of the lumbar spine, hip, or forearm. COMPARISON: CR LUMBAR SPINE COMPLETE from 06/15/2014 Prior DEXA scan March 2016 FINDINGS: Performed on a Holo[employer] unit. Lateral image: No compression fracture evident. Lumbar Spine total T-score: -2.3. Prior 2015 reading was -1.9 Hip total T-score:-1.2. Prior 2015 reading was -1.3 Independent reading at the femoral neck yields a T-score of -1.9 Forearm total T-score: -1.5 IMPRESSION: Bone mineral density measures in the osteopenia range. Fracture risk is moderate. Note: Any spine fracture indicates 5x risk for subsequent spine fracture and 2x risk for subsequent h ip fracture. World Health Organization criteria for BMD interpretation classify patients: Normal...... T- Score at or above -1.0 Osteopenic... T- Score between -1.0 and -2.5 Osteoporosis... T-Score at or below -2.5
== END 2021-07-24 02:36 ==
PROVIDERS: PCP Nurse Practitioner Family; Visit Provider Nurse Practitioner Family
DX: M85.89 Other specified disorders of bone density and structure, multiple sites (principal)
CPT/HCPCS: 77080

== ENCOUNTER 2021-08-13 12:13 | Inpatient (IN) | payer MEDICARE, BC, SELFPAY ==
[2021-08-13] VITALS (24 sets, daily range): BP systolic 107–147; BP diastolic 64–90; PULSE 61–75; RESP 12–20; TEMP 36.2–36.6; O2SAT 96–100
--- OUTSIDE RECORDS SUMMARY | 2021-08-13 12:20 | XMS_ITS ---
:1955 Author Care Team Providers Name Role Phone [facility] MEDICAL RECORDS Primary Care Provider [phone] Allergies Code Code System Name Reaction Severity Status Onset NKDA ? Medications Name Status Start Date Stop Date ? ? Cialis Active ? Not available daily Cialis 5 mg tablet Completed ? 06/01/2018 famotidine 40 mg tablet Active ? Not avai lable loratadine Active ? Not available 10mg daily naproxen Active ? Not available 1 tab daily psyllium Active ? Not available 1 tab daily zolpidem 5 mg tablet Completed 09/07/2017 10/21/2017 1 (one) Tablet: as directed Problems Name Status Onset Date Source ? Mobitz Type II Atrioventricular Block Active 06/02/2018 ? Obstructive Sleep Apnea Syndrome Active ? History Periodic Limb Movement Disorder Active ? History Movement Disorder Active ? History Abnormal Involuntary Movement Active ? Hi story Apnea Unknown ? History Snoring Active ? History Artificial Knee Joint Present Active ? Hi story Procedures None recorded. Results Lab Results None recorded. Past Encounters None recorded. Social History Tobacco Smoking Status Never Smoker Vaccine List None recorded. Plan of Care Reminders Provider Appointments None ? ? recorded. Lab None ? ? recorded. Referral None ? ? recorded. Procedures None ? ? recorded. Surgeries None ? ? recorded. Imaging None ? ? recorded. Vitals 06/02/2018 09:30AM Office 30 Height Weight BMI Blood Pressure 182.88 cm 77.2 kg 23.1 kg/m2 128/78 mm[Hg] 04/21/2018 01:45PM Office 15 Height Weight BMI Blood Pressure 182.88 cm 77.34 kg 23.1 kg/m2 126/74 mm[Hg] 10/21/2017 Height Blood Pressure 182.88 cm 126/74 mm[Hg] 10/21/2017 Weight 79.52 kg 09/07/2017 Height Blood Pressure 182.88 cm 122/70 mm[Hg] 09/07/2017 Weight 80.29 kg
--- NOTE | 2021-08-13 12:30 | DI.CT_ITS ---
Exam(s) CT HEAD - STROKE PROTOCOL EXAM: CT HEAD - STROKE PROTOCOL CLINICAL HISTORY: Left sided weakness. TECHNIQUE: Imaging Protocol: Axial computed tomography images with coronal and sagittal reformatted images were created and reviewed COMPARISON: CT CT HEAD WO/W from 10/04/2020 FINDINGS: There are no skull fractures nor fluid in the visualized paranasal sinuses. There is no evidence of intracranial hemorrhage, mass effect, or shift of midline structures. There are no extra-axial fluid collections. The ventricles are not enlarged or shifted and there is no blo od within the ventricular system nor within the basal cisterns. There is subtle area of hypodensity in what appears to be the rostrum of the corpus callosum. Also a nother area of subtle hypodensity in the right occipital parietal white matter, this measuring 1.5 x 1.3 cm, not previously present. IMPRESSION: Two subtle areas of white matter hypodensity described above. MRI recommended. RADIATION DOSE DELIVERED: 756.9mGy.cm Total DLP DATA REPOSITORY: All CT scans at this facility are submitted to the National Radiology Data Registry (NRDR) Dose Index Registry (DIR) with the [employer] (ACR). RADIATION OPTIMIZATION: All CT scans at this facility use at least one of these dose optimization te chniques: automated exposure control; mA and/or kV adjustment per patient size (includes targeted exa ms where dose is matched to clinical indication); or iterative reconstruction.
--- NOTE | 2021-08-13 12:30 | RT.EKG_ITS ---
APPROVED REPORT Exam: Resting ECG Reason for Exam: Left sided weakness s/p fall Patient Location: E HR:62 bpm ECG Measurements Heart Rate 62 AXIS NY 252 P 64 QRSd 90 QRS -15 QT 410 T 38 QTc 417 Conclusion Sinus rhythm...normal P axis, V-rate 60- 99 Prolonged NY interval...NY >220, V-rate 50- 90
--- NOTE | 2021-08-13 12:44 | W.ED.GENAD ---
Discharge Plan Disposition Patient Disposition: [facility] INPATIENT Condition: Stable Discharge Details Clinical Impression: Brain TIA, CVA (cerebral vascular accident) Primary Care Provider: Ginger Mejía ED Provider: Delilah Valadez Home Meds and New Rx's Prescriptions: No Action naproxen sodium 220 mg capsule 220 mg PO BID PRNRF: 0 loratadine 10 mg tablet 10 mg PO DAILY PRN (Reason: allergy symptoms) Qty: 90 RF: 4 ascorbate calcium (vitamin C) 500 mg tablet 500 mg PO DAILY RF: 0 psyllium husk 0.52 GM capsule 0.52 gm PO DAILY RF: 0 fluticasone propionate 50 mcg/actuation spray,suspension 2 spray TYREL DAILY PRN (Reason: allergy symptoms) Qty: 3 RF: 4 famotidine 20 mg tablet 20 mg PO DAILY Qty: 90 RF: 3 ferrous sulfate 325 mg (65 mg iron) tablet 325 mg PO Q OTHER DAY Qty: 180 RF: 4 cholecalciferol (vitamin D3) 50 mcg (2,000 unit) capsule 2,000 unit PO DAILY Qty: 90 RF: 4 Medical Decision Making 66-year-old male presents to the ER chief complaint of left sided arm and leg weakness and trouble walking status post trip and fall in approximately 1 hour prior to arrival. Patient reports prior to the trip and fall he had his eyes dilated at the eye doctor this morning. Denies any headache denies hitting his head. Denies any chest pain shortness of breath. He does exhibit some mild left-sided weakness to his left upper extremity and left lower extremity. Intact dorsal flexion and pedal flexion. Mild pronator drift noted on the left upper extremity. Alert and oriented x4 follows commands. Does have a past medical history of Mobitz type I second-degree AV block, depression, sleep apnea, restless leg syndrome, GERD, hyperlipidemia. At this time work-up ordered to rule out CVA TIA. CT head without shows possible hypodense lesions in the right occipital and parietal scalp per radiologist report. Please see official read. 1350: [facility] Transfer center contacted for transfer request. 1415: Spoke with Dr. Ricketts with [facility] Neurology discussed patient case and details, at this time due to patient's mild motor symptoms and pending CTA he and I have come to the delusion that patient does not qualify for TPA or thrombolytic therapy at this time. Is currently at hour 3 from last known well. NIH scale is 1-4 which is minor stroke at this point he does recommend admission, clopidogrel 600 mg p.o. and dual antiplatelet protocol. Patient appears to improving he is sitting up in bed eating dinner. Discussed plan of care with patient and family they are in agreement with plan. Spoke with Dr. Garcia regarding patient case and details. 1458: Spoke with Dr. Fisher radiologist reports a normal limits of CTA brain and neck. Plan is for admission for observation and TIA rule out 1509: Dr. Garcia accepts patient for admission for TIA CVA rule out. Patient remained hemodynamically stable at the time of this dictation throughout the remainder of his stay. HPI General Mode of arrival: ambulatory. Date/Time Provider Initiated Documentation: 08/13/21 12:14. Limitations to Documentation: no limitations. Information obtained by: patient, family and RN notes reviewed. HPI Narrative: 66-year-old male presents to the ER chief complaint of left sided arm and leg weakness and trouble walking status post trip and fall in approximately 1 hour prior to arrival. Patient reports prior to the trip and fall he had his eyes dilated at the eye doctor this morning. Denies any headache denies hitting his head. Denies any chest pain shortness of breath. He does exhibit some mild left-sided weakness to his left upper extremity and left lower extremity. Intact dorsal flexion and pedal flexion. Mild pronator drift noted on the left upper extremity. Alert and oriented x4 follows commands. Does have a past medical history of Mobitz type I second-degree AV block, depression, sleep apnea, restless leg syndrome, GERD, hyperlipidemia. Related Data Home Medications Medication Instructions Recorded Confirmed psyllium husk 0.52 gm PO DAILY 05/28/17 08/13/21 naproxen sodium 220 mg capsule 220 mg PO BID PRN 04/19/19 08/13/21 fluticasone propionate 50 2 spray TYREL DAILY PRN #3 ea 01/15/21 08/13/21 mcg/actuation nasal spray,suspension loratadine 10 mg tablet 10 mg PO DAILY PRN #90 tab 05/15/21 08/13/21 famotidine 20 mg tablet 20 mg PO DAILY #90 tab 06/02/21 08/13/21 cholecalciferol (vitamin D3) 50 2,000 unit PO DAILY #90 cap 06/11/21 08/13/21 mcg (2,000 unit) capsule ferrous sulfate 325 mg (65 mg 325 mg PO Q OTHER DAY #180 tab 06/11/21 08/13/21 iron) tablet ascorbate calcium (vitamin C) 500 500 mg PO DAILY 07/15/21 08/13/21 mg tablet Previous Rx's Medication Instructions Recorded fluticasone propionate 50 2 spray TYREL DAILY PRN #3 ea 01/15/21 mcg/actuation nasal spray,suspension loratadine 10 mg tablet 10 mg PO DAILY PRN #90 tab 05/15/21 famotidine 20 mg tablet 20 mg PO DAILY #90 tab 06/02/21 cholecalciferol (vitamin D3) 50 2,000 unit PO DAILY #90 cap 06/11/21 mcg (2,000 unit) capsule ferrous sulfate 325 mg (65 mg 325 mg PO Q OTHER DAY #180 tab 06/11/21 iron) tablet Allergies Allergy/AdvReac Type Severity Reaction Status Date / Time tamsulosin HCl [From Flomax] AdvReac Severe LETHARGIC Verified 08/13/21 12:21 lactose AdvReac Unknown INTOLERANT Verified 08/13/21 12:21 General Stated Complaint: GenMedical JESSE: 3 Review of Systems All systems reviewed & are unremarkable except as noted in HPI and below Constitutional Constitutional: Reports weakness ENT Ears, Nose, Mouth, and Throat: Reports disequilibrium Cardiovascular Cardiovascular: Denies chest pain and Denies dyspnea Respiratory Respiratory: Denies dyspnea Musculoskeletal Musculoskeletal: Reports abnormal gait Neurologic Neurologic: Reports as per HPI (~Proxy 11 AM to size hitting head or loss of consciousness), Reports abnormal gait, Denies confusion, Reports lack of coordination, Reports localized weakness (Left upper extremity and left lower extremity), Denies memory loss, Reports other visual disturbances (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 Recurrent obstructive sx. Depressive disorder Gastritis GERD with esophagitis EGD 04/23 and 09/27 chronic active gastritis + esophagitis (2001); EGD 2006 with esophagitis. EGD 2019 with gastritis Hyperlipidemia Iron deficiency Mobitz type 1 second degree atrioventricular block Obstructive sleep apnea PSG September 2017; uses oral appliance Osteoarthritis Osteopenia of lumbar spine Dexa 2020 Prediabetes Restless leg syndrome Vitamin D deficiency Surgical History Hx of transurethral resection of prostate (01/22/20) Status post left knee replacement Status post right knee replacement Family History Mother , age 92 Atrial fibrillation Hypertension Father , age 89 Parkinson disease Hypertension Sister Depression Dementia Sister Atrial fibrillation Sister Hemochromatosis Brother Melanoma Hypertension Brother Hemochromatosis Daughter Depression Daughter No problems noted. Maternal Grandfather Heart disease Maternal Grandmother Colon cancer Paternal Grandfather No problems noted. Paternal Grandmother No problems noted. Social History Smoking/Tobacco Use Status: Never Second Hand Exposure: No Smoking risk assessment performed?: Yes Alcohol Intake: current Alcohol Intake frequency: a few times a week Alcohol type: beer and wine Drug use: Never Substance use type: does not use Caregiver/Support person: No Household members: spouse Do you need help understanding health information?: Never Pets and animals: Yes Pets and animals: cat(s) Sexually active: Yes Do you think of yourself as: straight/heterosexual Current gender identity: male How often do you talk on the phone with friends or family?: three or more times per week How often do you get together with friends or relatives?: twice per week Panel score (0-1 are the most socially isolated patients): 1 NHANES result reviewed/action taken: Yes What type of physical activity do you participate in: walking and bicycling Duration: 30-45 minutes/day Seatbelt use: always Helmet use: Yes Helmet use: always Drive intox or ride w/intox emergency detail driver: No Do you feel safe at home: Yes Do you feel safe in your relationship?: Yes Exam Narrative Exam Narrative: Constitutional: Alert and oriented x3. Appears stated age. Normal body habitus. Head: Normocephalic, no trauma. Eyes: Pupils are dilated, abnormal. You full lip but I believe this could be from his previous dilation prior to arrival. Red reflex noted, EOM's intact. Eyelids symmetrical without lesions, discharge, or swelling. ENT: No facial droop, tongue is midline, raises eyebrows without difficulty. Chest: RRR, Normal S1, S2, distal pulses intact. Resp: Lungs clear to auscultation bilaterally, no wheezes, rales, or rhonchi. Musculoskeletal: Does have 4 out of 5 strength noted on the left upper extremity and left lower extremity. Intact dorsal pedal flexion and plantar flexion. No significant pronator drift left leg does not hit bed. Skin: No suspicious rashes or lesions. Capillary refill less than 2 sec. Neurologic: Cranial nerves II-XII intact. Alert and oriented x 3. See MSK exam above. Hematologic/Lymphatic: No ecchymosis, no lymphadenopathy. Course Vital Signs Vital signs: Vital Signs Temperature 36.6 C 08/13/21 12:17 Pulse 65 08/13/21 12:17 Respiratory Rate 18 08/13/21 12:17 Blood Pressure 147/90 H 08/13/21 12:17 Pulse Oximetry 98 08/13/21 12:17 Temperature 36.6 C 08/13/21 12:17 Temperature Source Skin 08/13/21 12:17 Pulse 65 08/13/21 12:17 Respiratory Rate 18 08/13/21 12:17 Blood Pressure 147/90 H 08/13/21 12:17 Blood Pressure Position Sitting 08/13/21 12:17 Pulse Oximetry 98 08/13/21 12:17 Oxygen Delivery Method Room Air 08/13/21 12:17 Oxygen Flow Rate 0 08/13/21 12:17 Pain Level 0 08/13/21 12:17
--- NOTE | 2021-08-13 13:00 | DI.CT_ITS ---
Exam(s) CT BRAIN NECK CTA EXAM: CT BRAIN NECK CTA CLINICAL HISTORY: R/O CVA. TECHNIQUE: Imaging Protocol: Axial CT angiography was performed with multi-slice acquisition and mu lti-planar and/or 3D reconstructions. CONTRAST MATERIAL: Intravenous: Omnipaque 350 Contrast volume:structured data in ml COMPARISON: CT CT ABDOMEN PELVIS W from 11/09/2018 FINDINGS: CTA Neck W: Aortic arch anatomy: The aortic arch anatomy is conventional. There is no significant stenosis at the origin the great vessels off the aortic arch. Anterior circulation: Both common carotid arteries are patent and there is no significant atherosclerotic stenosis at the l evel the carotid bulbs and proximal internal carotid arteries bilaterally. Both internal carotid art eries are nicely patent in the upper neck and skull base-carotid canals. Posterior circulation: The right vertebral artery size is dominant, measuring 4.9 millimeters. The left vertebral artery is a small-thin vessel throughout its length, with a luminal diameter of 1.4 cm millimeter. There is n o significant stenosis in the left subclavian artery proximal to the left vertebral artery takeoff po int. No evidence of intraluminal thrombus nor dissection in either vertebral artery. The basilar ar regla at the skull base is formed by the dominant right vertebral artery. The left vert the thin left vertebral artery is hypoplastic at the skull base. CTA Brain W: Anterior circulation: Both internal carotid arteries are patent in the skull base-carotid canals and cavernous sinuses. [place] praclinoid aspects are patent. Both middle cerebral arteries are patent. Left A1 segment is dominant.. Both anterior cerebral arteries are patent.. There is no evidence of aneurysm level of the anterior communicating artery. Posterior circulation: Basilar artery is formed by dominant right vertebral artery. It is sends mild dolichoectatic fashion left of center without evidence of intraluminal thrombus nor dissection. Distally it gives off supe rior cerebellar arteries and above this level terminates as posterior cerebral arteries which are pat ent. The left posterior cerebral artery also receives flow from a posterior communicating artery on the left side of the [id number]. CT BRAIN: There is no evidence of intracranial hemorrhage, mass effect, or shift of midline structures. There are no extra-axial fluid collections. Ventricles are not enlarged or shifted. There are no ring enh ancing lesions in the brain and no abnormal meningeal enhancement. IMPRESSION: 1. Patent carotid arteries in the neck. No evidence of atherosclerotic narrowing of the carotid bifu rcations and proximal internal carotid arteries. 2. Patent vertebral arteries. Right vertebral artery is patent. Left vertebral artery is thin thro ughout its length. 3. Patent intracranial arteries. No intraluminal thrombus. No aneurysms. No ring enhancing lesions in the brain. No abnormal meningeal enhancement. Clinically indicated follow-up MRI can be performed. Findings discussed with ER provider RADIATION DOSE DELIVERED: 1,204.19mGy.cm Total DLP DATA REPOSITORY: All CT scans at this facility are submitted to the National Radiology Data Registry (NRDR) Dose Index Registry (DIR) with the [employer] (ACR). RADIATION OPTIMIZATION: All CT scans at this facility use at least one of these dose optimization te chniques: automated exposure control; mA and/or kV adjustment per patient size (includes targeted exa ms where dose is matched to clinical indication); or iterative reconstruction.
[2021-08-13 13:08] LABS: Abs Immature Grans 0.02 10^3/uL (0.0-0.06); Absolute Basophil Count 0.03 10^3/uL (0.0-0.2); Absolute Eosinophil Count 0.17 10^3/uL (0.0-0.7); Absolute Lymphocyte Count 0.75 10^3/uL (1.2-3.4); Absolute Monocyte Count 0.44 10^3/uL (0.1-0.8); Absolute Neutrophil Count 2.91 10^3/uL (1.2-6.7); Basophils % 0.7; Eosinophils % 3.9; HGB 13.8 g/dL (13.5-17.5); Immature Grans % 0.5; Lymphocytes % 17.4; MCH 29.2 pg (27.0-33.0); MCHC 33.7 % (32.0-36.0); MCV 86.7 fL (80-95); MPV 10.8 fL (8.0-11.0); Monocytes % 10.2; Neutrophils % 67.3; Nucleated RBC 0 %; Platelet Count 188 10^3/uL (130-400); RBC 4.73 10^6/uL (4.36-5.78); RDW-SD 41.1 fL; WBC 4.32 10^3/uL (4.4-10.8)
[2021-08-13 13:21] LABS: INR 1.1 (0.9-1.1); Prothrombin Time 10.8 sec (9.3-11.0)
[2021-08-13 13:23] LABS: ALT 19 U/L (16-63); AST 16 U/L (15-37); Albumin 3.4 g/dL (3.4-5.0); Alkaline Phosphatase 73 U/L (46-116); Anion Gap 7.3 mmol/L (3-11); BUN 13 mg/dL (7-18); Bilirubin, Total 0.8 mg/dL (0.2-1.0); CO2 27.7 mmol/L (21.0-32.0); CREATININE 0.9 mg/dL (0.70-1.30); Calcium 8.7 mg/dL (8.5-10.1); Chloride 104 mmol/L (98-107); Glucose 108 mg/dL (74-106); Potassium 3.7 mmol/L (3.5-5.1); Sodium 139 mmol/L (136-145); Total Protein 7.3 g/dL (6.4-8.2); Troponin I < 0.05 ng/mL (<0.06)
[2021-08-13 13:25] LABS: Bilirubin Negative (Negative); Blood Negative (Negative); Clarity Clear (Clear); Glucose Negative (Negative); Ketones Negative (Negative); Leukocyte Esterase Negative (Negative); Nitrite Negative (Negative); Urobilinogen 0.2 EU/dL (Up TO 0.2); pH 5.5 (5-8)
[2021-08-13] MEDS: Aspirin 81 MG CHEW 324 MG CH (13:40)
[2021-08-13] MEDS: Omnipaque 350 MG/ML 100 ML BTL IJ (14:24)
[2021-08-13] MEDS: Normal Saline - Diluent 50 ML VIAL IV (14:25)
[2021-08-13] MEDS: Clopidogrel 300 MG TAB 600 MG PO (14:59)
[2021-08-13 15:22] LABS: Source Nasal/Nares
[2021-08-13 16:15] LABS: COVID-19 PCR Negative (Negative)
[2021-08-13 16:38] LABS: Troponin I < 0.05 ng/mL (<0.06)
--- NOTE | 2021-08-13 18:27 | W.PM.HP.N ---
Date of service: 08/13/21 Time of Service: 18:27 Assessment and Plan Assessment and plan (1) Brain TIA: Status: Acute Assessment and plan: L sided weakness resolved. MRI brain ordered. Cont Plavix 75mg daily and ASA daily. Lipid panel. PT. (2) Obstructive sleep apnea: Status: Chronic Assessment and plan: Uses oral appliance. (3) Hyperlipidemia: Status: Acute Assessment and plan: No recent lipid panel results in chart. Not on a statin. Lipid panel in the AM. (4) Prediabetes: Status: Chronic Assessment and plan: A1c of 5.9 on 06/09/21. Heart Healthy diet ordered hear, but for long-run he should eat a carb controlled diet and exercise routinely. History of Present Illness History of Present Illness Chief Complaint: Left sided weakness Narrative: This is a 66 yo male with a PMH of HLD, mobitz 1 second degree AV block, SHAUNA, OA, prediabetes, RLS, Vit D def, depression, GERD, BPH/s/p TURP. He state that he was doing some work in the yard, bent over. When he stood up he felt some dizziness. He stumbled but did not fall. He noted that his left leg felt numb and possibly weak, then some weakness in the left arm. The lightheadedness resolved. This occurred appx 1 hour prior to arrival. By the time he arrived, his symptoms had essentially resolved. No difficulty with speech, word finding, confusion. Lab was unremarkable. CT head showed: no evidence of intracranial hemorrhage, mass effect, or shift of midline structures. There are no extra-axial fluid collections. The ventricles are not enlarged or shifted and there is no blood within the ventricular system nor within the basal cisterns. There is subtle area of hypodensity in what appears to be the rostrum of the corpus callosum. Also another area of subtle hypodensity in the right occipital parietal white matter, this measuring 1.5 x 1.3 cm, not previously present. CTA head and neck w/o an narrowing, thrombi or aneurysms. The left vertebral artery is thing throughout its length. A loading dose of Plavix and 325mg aspirin administered. ED provider spoke with Dr Ricketts at [facility] [place], neurologist. No qualification for TPA. NIH scale of 1-4. Review of Systems All systems reviewed & are unremarkable except as noted in HPI and below [facility] Medical History Allergic rhinitis BPH loc w urin obs/LUTS Status/post TURP. Recurrent obstructive sx. Depressive disorder Gastritis GERD with esophagitis EGD 04/23 and 09/27 chronic active gastritis + esophagitis (2001); EGD 2006 with esophagitis. EGD 2019 with gastritis Hyperlipidemia Iron deficiency Mobitz type 1 second degree atrioventricular block Obstructive sleep apnea PSG September 2017; uses oral appliance Osteoarthritis Osteopenia of lumbar spine Dexa 2020 Prediabetes Restless leg syndrome Vitamin D deficiency Surgical History Hx of transurethral resection of prostate (01/22/20) Status post left knee replacement Status post right knee replacement Family History Mother , age 92 Atrial fibrillation Hypertension Father , age 89 Parkinson disease Hypertension Sister Depression Dementia Sister Atrial fibrillation Sister Hemochromatosis Brother Melanoma Hypertension Brother Hemochromatosis Daughter Depression Daughter No problems noted. Maternal Grandfather Heart disease Maternal Grandmother Colon cancer Paternal Grandfather No problems noted. Paternal Grandmother No problems noted. Social History Smoking/Tobacco Use Status: Never Second Hand Exposure: No Smoking risk assessment performed?: Yes Alcohol Intake: current Alcohol Intake frequency: a few times a week Alcohol type: beer and wine Drug use: Never Substance use type: does not use Caregiver/Support person: No Household members: spouse Do you need help understanding health information?: Never Pets and animals: Yes Pets and animals: cat(s) Sexually active: Yes Do you think of yourself as: straight/heterosexual Current gender identity: male How often do you talk on the phone with friends or family?: three or more times per week How often do you get together with friends or relatives?: twice per week Panel score (0-1 are the most socially isolated patients): 1 NHANES result reviewed/action taken: Yes What type of physical activity do you participate in: walking and bicycling Duration: 30-45 minutes/day Seatbelt use: always Helmet use: Yes Helmet use: always Drive intox or ride w/intox buggy driver: No Do you feel safe at home: Yes Do you feel safe in your relationship?: Yes Meds Allergies and Home Medications Allergies Allergy/AdvReac Type Severity Reaction Status Date / Time tamsulosin HCl [From Flomax] AdvReac Severe LETHARGIC Verified 08/13/21 12:21 lactose AdvReac Unknown INTOLERANT Verified 08/13/21 12:21 Home Medications Medication Instructions Recorded Confirmed Type psyllium husk 0.52 gm PO DAILY 05/28/17 08/13/21 History naproxen sodium 220 mg capsule 220 mg PO BID PRN 04/19/19 08/13/21 History fluticasone propionate 50 2 spray TYREL DAILY PRN #3 ea 01/15/21 08/13/21 Rx mcg/actuation nasal spray,suspension loratadine 10 mg tablet 10 mg PO DAILY PRN #90 tab 05/15/21 08/13/21 Rx famotidine 20 mg tablet 20 mg PO DAILY #90 tab 06/02/21 08/13/21 Rx cholecalciferol (vitamin D3) 50 2,000 unit PO DAILY #90 cap 06/11/21 08/13/21 Rx mcg (2,000 unit) capsule ferrous sulfate 325 mg (65 mg 325 mg PO Q OTHER DAY #180 tab 06/11/21 08/13/21 Rx iron) tablet ascorbate calcium (vitamin C) 500 500 mg PO DAILY 07/15/21 08/13/21 History mg tablet Exam Const General: cooperative and no acute distress Nutritional Appearance: average body habitus Orientation: alert and oriented x3 Limitations: mental status not altered [facility] Head: normocephalic and atraumatic Ears: hearing grossly normal bilaterally Eyes General: appearance normal, both eyes and all related structures Sclera: sclerae normal Neck Neck: full ROM and no JVD Resp Effort & Inspection: normal respiratory effort Auscultation: clear to auscultation bilaterally Cardio Rate: regular rate Rhythm: regular rhythm Heart Sounds: S1 normal and S2 normal GI Palpation: soft and nontender Skin General skin exam: no rashes or lesions noted Neuro General: no focal motor deficits Cranial Nerves: facial strength normal Cognition: normal cognition Speech: speech normal Extrem General: no pedal edema and no calf tenderness Results Labs Result diagrams: 08/13/21 12:53 08/13/21 12:53 Labs: Laboratory Results - last 24 hr 08/13/21 08/13/21 08/13/21 12:53 12:53 12:53 WBC 4.32 L RBC 4.73 Hgb 13.8 Hct 41.0 MCV 86.7 MCH 29.2 MCHC 33.7 RDW 13.0 Plt Count 188 MPV 10.8 Immature Gran % 0.5 Neutrophils % 67.3 Lymphocytes % 17.4 Monocytes % 10.2 Eosinophils % 3.9 Basophils % 0.7 Nucleated RBC % 0 Absolute Neutrophils 2.91 Absolute Lymphocytes 0.75 L Absolute Monocytes 0.44 Absolute Eosinophils 0.17 Absolute Basophils 0.03 PT 10.8 INR 1.1 Sodium 139 Potassium 3.7 Chloride 104 Carbon Dioxide 27.7 Anion Gap 7.3 BUN 13 Creatinine 0.9 Estimated GFR/1.73 m2 >= 60.00 Glucose 108 H Calcium 8.7 Magnesium 2.0 Total Bilirubin 0.8 AST 16 ALT 19 Alkaline Phosphatase 73 Troponin I < 0.05 Total Protein 7.3 Albumin 3.4 Urine Color Urine Clarity Urine pH Ur Specific [place] Urine Protein Urine Ketones Urine Blood Urine Nitrite Urine Bilirubin Urine Urobilinogen Ur Leukocyte Esterase Urine Glucose COVID-19 Source SARS-CoV-2 (PCR) 08/13/21 08/13/21 08/13/21 13:18 15:19 16:08 WBC RBC Hgb Hct MCV MCH MCHC RDW Plt Count MPV Immature Gran % Neutrophils % Lymphocytes % Monocytes % Eosinophils % Basophils % Nucleated RBC % Absolute Neutrophils Absolute Lymphocytes Absolute Monocytes Absolute Eosinophils Absolute Basophils PT INR Sodium Potassium Chloride Carbon Dioxide Anion Gap BUN Creatinine Estimated GFR/1.73 m2 Glucose Calcium Magnesium Total Bilirubin AST ALT Alkaline Phosphatase Troponin I < 0.05 Total Protein Albumin Urine Color Yellow Urine Clarity Clear Urine pH 5.5 Ur Specific [place] 1.010 Urine Protein Negative Urine Ketones Negative Urine Blood Negative Urine Nitrite Negative Urine Bilirubin Negative Urine Urobilinogen 0.2 Ur Leukocyte Esterase Negative Urine Glucose Negative COVID-19 Source Nasal/Nares SARS-CoV-2 (PCR) Negative Last Vital Signs Temp 36.4 C L 08/13/21 16:53 Pulse 73 08/13/21 16:53 Resp 16 08/13/21 16:53 BP 134/85 08/13/21 16:53 Pulse Ox 96 08/13/21 16:53
[2021-08-13] MEDS: Psyllium PKT 1 EACH PO (21:32)
--- NOTE | 2021-08-14 | DI.MRI_ITS ---
Exam(s) MR BRAIN WO EXAM: MR BRAIN WO CLINICAL HISTORY: TIA vs stroke symptoms TECHNIQUE: Multiplanar multisequence MRI of the brain was performed. COMPARISON: CT CT BRAIN NECK CTA from 08/13/2021 FINDINGS: VENTRICLES AND EXTRA AXIAL SPACES: Normal in size and morphology for the patient's age. MIDLINE SHIFT: None. CEREBRAL PARENCHYMA: There is an area of restricted diffusion in the right souleymane which corresponds to area of hyperintensity on the T2 and FLAIR images. The findings consistent with an acute infarct. N o mass effect is identified. No space-occupying lesion identified. There are few scattered areas of hyperintense signal in the white matter on the T2 and FLAIR images. These likely reflect small vesse l ischemic disease. HEMORRHAGE: None. BRAINSTEM/CEREBELLUM: Please see above. CALVARIUM: Normal. VISUALIZED PARANASAL SINUSES/MASTOIDS:Clear. [place]: Normal flow void. PITUITARY GLAND: Unremarkable. OTHER FINDINGS: None. IMPRESSION: Findings of restricted diffusion in the right souleymane consistent with an acute infarct. DATA REPOSITORY:
[2021-08-14 00:37] VITALS: PULSE 58
[2021-08-14 03:26] VITALS: BP 102/62; PULSE 65; RESP 17; TEMP 36.3; O2SAT 96
[2021-08-14 06:46] LABS: Abs Immature Grans 0.01 10^3/uL (0.0-0.06); Absolute Basophil Count 0.03 10^3/uL (0.0-0.2); Absolute Eosinophil Count 0.22 10^3/uL (0.0-0.7); Absolute Lymphocyte Count 0.82 10^3/uL (1.2-3.4); Absolute Monocyte Count 0.49 10^3/uL (0.1-0.8); Absolute Neutrophil Count 2.69 10^3/uL (1.2-6.7); Basophils % 0.7; Eosinophils % 5.2; HCT 39.9 % (40.0-50.0); HGB 13.1 g/dL (13.5-17.5); Immature Grans % 0.2; Lymphocytes % 19.2; MCH 28.5 pg (27.0-33.0); MCHC 32.8 % (32.0-36.0); MCV 86.7 fL (80-95); MPV 11.1 fL (8.0-11.0); Monocytes % 11.5; Neutrophils % 63.2; Nucleated RBC 0 %; Platelet Count 179 10^3/uL (130-400); RDW 13.1 % (11.8-14.1); RDW-SD 41.4 fL; WBC 4.26 10^3/uL (4.4-10.8)
[2021-08-14 06:59] LABS: Calculated LDL 100 mg/dL (<100); Cholesterol 150 mg/dL (<200); HDL Cholesterol 32 mg/dL (40-60); Triglyceride 90 mg/dL (<150)
[2021-08-14] MEDS: Clopidogrel 75 MG TAB PO (07:40)
[2021-08-14] MEDS: Famotidine 20 MG TAB PO (07:40)
[2021-08-14] MEDS: Aspirin 325 MG TAB PO (07:40)
[2021-08-14] MEDS: Normal Saline Flush 10 ML SYR IVP (07:40)
[2021-08-14 07:41] VITALS: PULSE 84
[2021-08-14 07:55] VITALS: BP 125/87; PULSE 69; RESP 18; TEMP 36.5; O2SAT 97
--- NOTE | 2021-08-14 09:50 | PT.INIE ---
Date of service: 08/14/21 Time of Service: 09:50 PT Notes Visit Reasons: cva Physical Therapy Inpatient Initial Evaluation Date: 08/14/2021 Referring Doctor: Narciso Cabral MD PT Orders: PT CONSULT: Eval/Treat Precautions: Fall. Standard. Activity as tolerated. Patient Profile/Admitting Diagnosis: Patient is a 66-year-old male who presented to the ED on 08/13/2021 for left-sided arm and leg weakness, difficulty with walking resulting from a trip and fall 1 hour prior to arrival. Patient is diagnosed with brain transient ischemic attack, obstructive sleep apnea, hyperlipidemia, prediabetes. PMHX: Medical History Allergic rhinitis BPH loc w urin obs/LUTS Status/post TURP. Recurrent obstructive sx. Depressive disorder Gastritis GERD with esophagitis EGD 04/23 and 09/27 chronic active gastritis + esophagitis (2001); EGD 2006 with esophagitis. EGD 2019 with gastritis Hyperlipidemia Iron deficiency Mobitz type 1 second degree atrioventricular block Obstructive sleep apnea PSG September 2017; uses oral appliance Osteoarthritis Osteopenia of lumbar spine Dexa 2020 Prediabetes Restless leg syndrome Vitamin D deficiency Surgical History Hx of transurethral resection of prostate (01/22/20) Status post left knee replacement Status post right knee replacement Social History/Home Situation: Retired teacher. Lives with in a private home with 2 steps to enter with rails on both sides. Independent with all aspects of ADLs prior to admission. Equipment Owned/DME: None Subjective: Agreeable to PT consult. Denies headache, chest pain, and dizziness. Feels that his school left arm and left leg continues to feel funny but to a lesser intensity as they did yesterday. Objective: General Observation: Seated on bedside chair. Telemetry monitoring in place. Mental Status: Alert and oriented as to person, place, time, and purpose. Able to pay attention, focus, and respond appropriately. Pain: 0/10 ROM: Right Upper Extremity: Shoulder Flexion WFL. Shoulder abduction WFL. Elbow flexion WFL. Wrist flexion WFL. Functional opening and closing of hand WFL. Left Upper Extremity: Shoulder Flexion WFL. Shoulder abduction WFL. Elbow flexion WFL. Wrist flexion WFL. Functional opening and closing of hand WFL. Right Lower Extremity: Hip flexion WFL. Hip abduction WFL. Knee flexion WFL. Ankle dorsiflexion WFL. Ankle plantarflexion WFL. Left Lower Extremity: Hip flexion WFL. Hip abduction WFL. Knee flexion WFL. Ankle dorsiflexion WFL. Ankle plantarflexion WFL. Strength: Right Upper Extremity: Shoulder flexors 5/5. Shoulder abductors 5/5. Elbow flexors 5/5. Elbow extensors 5/5. Casting Inspector strong. Left Upper Extremity: Shoulder flexors 4+/5. Shoulder abductors 4+/5. Elbow flexors 4+/5. Elbow extensors 4+/5. Casting Inspector strong. Right Lower Extremity: Hip flexors 5/5. Hip abductors 5/5. Knee flexors 5/5. Knee extensors 5/5. Ankle dorsiflexors 5/5. Ankle plantarflexors 5/5. Left Lower Extremity: Hip flexors 4+/5. Hip abductors 4+/5. Knee flexors 5/5. Knee extensors 4+/5. Ankle dorsiflexors 4+/5. Ankle plantarflexors 5/5. Bed Mobility/Transfers: Rolling independent Supine to sit independent Sit to supine independent Sit to stand independent Stand to sit independent Bed to reclining chair independent Reclining chair to bed independent Gait: Instructed patient with level surface ambulation of 520 feet requiring supervision assist. Gait pattern unremarkable even though patient reports that there is a certain amount of instability and funny feeling in his left knee. No LOB. Mild path deviation. Denies chest pain. Denies headache. Stairs: Tolerated up-and-down 6 x 4 and 4 x 6 steps without holding onto any rails independently. Balance: Static Sitting: Normal Dynamic Sitting: Normal Static Standing: Normal Dynamic Standing: Normal Special Tests: Mobility Limitations Standardized Measure [facility] AM-PAC 6 clicks Basic Mobility Inpatient Short Form: Raw Score: 24 CMS Score: 0% deficit 4-Stage Balance Test: Able to tolerate 10 seconds for all 4 balance positions: Together, semitandem, full tandem, and 1 legged stance. Required 2 trials with full tandem and one-legged stance. Pronator drift: Subtle drift observed on the L after having both arms for about 1 minute Informed Consent/Education: Patient was instructed in purpose of PT consult and plan of care. Agreeable to proceed with established PT POC to achieve personal goals. Assessment: Negligible strength variance between L and R UE/LE with L comparatively weaker. Had mild difficulty with holding full tandem and 1 legged stance but was able to maintain position for 10 for the second trial. Patient will be given a list of exercise to increase perception of increased L knee stability during walking. Patient presents with clinical signs and symptoms consistent with current/admitting diagnoses that have resulted to mobility limitations, gait instability, generalized weakness, and overall ADL decline as demonstrated by the following impairment level findings: 1. Minimal, almost negligible strength difference between L/R UE/LE 2. Report of mild instability in L knee Impairments are contributing to the following functional limitations: 1. Increased completion time for mobility ADL performance Patient is assessed as a [id number] low complexity based on the following: History: 66-year-old male with past medical history as indicated above Examination: Demonstrable impairment in strength, balance, and mobility level with underlying impairments and functional limitations as exhibited above as well as deficit score of 0% utilizing the [facility] Mobility Inpatient Short Form Presentation: Stable Decision Makin low complexity Goals: N/A. PT evaluation 1 treatment session only for HEP instruction and training. Plan of Care/Treatment Plan: N/A. PT evaluation 1 treatment session only for HEP instruction and training. DISCHARGE RECOMMENDATIONS: Outpatient PT services in order to regain premorbid independent level. TREATMENT CODE/TIME: 9716 1 x 20 minutes, 9753 0 x 12 minutes beginning at 9:50 AM. Thank you for the opportunity to participate in the care of this patient. Lala Gomez PT, DPT, CLT [facility] [place], [place]
[2021-08-14 11:17] VITALS: BP 133/86; PULSE 66; RESP 16; TEMP 37.1; O2SAT 98
--- NOTE | 2021-08-14 13:25 | DSE_ITS ---
Date of service: 08/14/21 Time of Service: 13:25 DS: Diagnosis Discharge Diagnosis (1) Obstructive sleep apnea: Status: Chronic (2) Hyperlipidemia: Status: Acute (3) Prediabetes: Status: Chronic (4) CVA (cerebral vascular accident): Status: Chronic Discharge Plan Disposition Patient Disposition: HOME Condition: Good Discharge Details Reason For Visit: cva Admit Date/Time: 08/13/21 15:02 Admit Provider: Narciso Cabral Attending Provider: Narciso Cabral [facility] Hospital Course: This is a 66 yo male with a PMH of HLD, mobitz 1 second degree AV block, SHAUNA, OA, prediabetes, RLS, Vit D def, depression, GERD, BPH/s/p TURP. He state that he was doing some work in the yard, bent over. When he stood up he felt some dizziness. He stumbled but did not fall. He noted that his left leg felt numb and possibly weak, then some weakness in the left arm. The lightheadedness resolved. This occurred appx 1 hour prior to arrival. By the time he arrived, his symptoms had essentially resolved. No difficulty with speech, word finding, confusion. Lab was unremarkable. CT head showed: no evidence of intracranial hemorrhage, mass effect, or shift of midline structures. There are no extra-axial fluid collections. The ventricles are not enlarged or shifted and there is no blood within the ventricular system nor within the basal cisterns. There is subtle area of hypodensity in what appears to be the rostrum of the corpus callosum. Also another area of subtle hypodensity in the right occipital parietal white matter, this measuring 1.5 x 1.3 cm, not previously present. CTA head and neck w/o an narrowing, thrombi or aneurysms. The left vertebral artery is thing throughout its length. A loading dose of Plavix and 325mg aspirin administered. ED provider spoke with [place] Rick[place] [facility] [place]. No qualification for TPA. NIH scale of 1-4 MRI head did show restricted diffusion in the right souleymane consistent with an acute infarct. He had no deficits noted by physical therapy. No atrial fibrillation on telemetry. 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 LDL 100. Atorvastatin 40mg initiated. He will d/c on Plavix, ASA, Atorvastatin with Neurology f/u. Home Meds and New Rx's Prescriptions: New atorvastatin 40 mg Tablet 40 mg PO QPM Qty: 30 RF: 0 clopidogrel 75 mg Tablet 75 mg PO DAILY Qty: 30 RF: 0 aspirin 81 mg tablet,chewable 81 mg PO DAILY Qty: 30 RF: 0 Continued naproxen sodium 220 mg capsule 220 mg PO BID PRNRF: 0 loratadine 10 mg tablet 10 mg PO DAILY PRN (Reason: allergy symptoms) Qty: 90 RF: 4 ascorbate calcium (vitamin C) 500 mg tablet 500 mg PO DAILY RF: 0 psyllium husk 0.52 GM capsule 0.52 gm PO DAILY RF: 0 fluticasone propionate 50 mcg/actuation spray,suspension 2 spray TYREL DAILY PRN (Reason: allergy symptoms) Qty: 3 RF: 4 famotidine 20 mg tablet 20 mg PO DAILY Qty: 90 RF: 3 ferrous sulfate 325 mg (65 mg iron) tablet 325 mg PO Q OTHER DAY Qty: 180 RF: 4 cholecalciferol (vitamin D3) 50 mcg (2,000 unit) capsule 2,000 unit PO DAILY Qty: 90 RF: 4 Discharge Instructions Referrals: Nithya Wesley MD [ [facility]YSICIAN] - (CVA) Activity:: Activity as Tolerated 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 Diet:: Heart Healthy Discharge Orders Discharge Orders: Discharge Order (Routine); Ordered 08/14/21 Ordered By: Narciso Cabral Other Ambulatory Orders: Cardiac Event Recorder (Routine) Timeframe: 2 Weeks Facility: [facility] - Location: Respiratory Therapy Ordered By: Narciso Cabral DS: Summary Time Spent with Patient providing and/or coordinating discharge services: Greater than 30 minutes Status at Discharge Functional status at discharge: independent ambulation Overall status at discharge: patient is back to baseline Mental Status: mental status grossly normal Speech and Movement: speech and movement normal Mood: congruent mood Affect: normal affect Exam Psych Mental Status: mental status grossly normal Speech and Movement: speech and movement normal Mood: congruent mood Affect: normal affect DS: Data Vitals/I&O Vitals and I&O: Vital Signs Temperature 37.1 C 08/14/21 11:17 Temperature Source Tympanic 08/14/21 11:17 Pulse 66 08/14/21 11:17 Pulse Rhythm Regular 08/14/21 08:54 Pulse 69 08/13/21 16:20 Respiratory Rate 16 08/14/21 11:17 Respiratory Effort Non-Labored 08/14/21 08:54 Respiratory Depth Normal 08/14/21 08:54 Respiratory Pattern Normal 08/14/21 08:54 Blood Pressure 133/86 08/14/21 11:17 Blood Pressure Mean 84 08/13/21 16:16 Blood Pressure Position Sitting 08/13/21 12:17 Pulse Oximetry 98 08/14/21 11:17 Oxygen Delivery Method Room Air 08/14/21 11:17 Oxygen Flow Rate 0 08/14/21 11:17 Pain Level 0 08/14/21 03:26 Intake & Output 08/13/21 08/14/21 08/14/21 23:59 11:59 23:59 Intake Total Balance Weight 74.843 kg Intake: IV Other: Urine Appearance Clear Urine Odor Normal Comment void x 1 directly in toilet pT void indepentent in toilet Voiding Methods Toilet Toilet Data Completed and Pending Labs on day of discharge: Labs from last 24 hours 08/14/21 08/14/21 08/13/21 06:21 06:21 16:08 WBC 4.26 L RBC 4.60 Hgb 13.1 L Hct 39.9 L MCV 86.7 MCH 28.5 MCHC 32.8 RDW 13.1 Plt Count 179 MPV 11.1 H Immature Gran % 0.2 Neutrophils % 63.2 Lymphocytes % 19.2 Monocytes % 11.5 Eosinophils % 5.2 Basophils % 0.7 Nucleated RBC % 0 Absolute Neutrophils 2.69 Absolute Lymphocytes 0.82 L Absolute Monocytes 0.49 Absolute Eosinophils 0.22 Absolute Basophils 0.03 PT INR Troponin I Triglycerides 90 Total Cholesterol 150 LDL Cholesterol, Calc 100 HDL Cholesterol 32 L TSH 2.10 Urine Color Urine Clarity Urine pH Ur Specific [place] Urine Protein Urine Ketones Urine Blood Urine Nitrite Urine Bilirubin Urine Urobilinogen Ur Leukocyte Esterase Urine Glucose COVID-19 Source SARS-CoV-2 (PCR) 08/13/21 08/13/21 08/13/21 16:08 15:19 13:18 WBC RBC Hgb Hct MCV MCH MCHC RDW Plt Count MPV Immature Gran % Neutrophils % Lymphocytes % Monocytes % Eosinophils % Basophils % Nucleated RBC % Absolute Neutrophils Absolute Lymphocytes Absolute Monocytes Absolute Eosinophils Absolute Basophils PT INR Troponin I < 0.05 Triglycerides Total Cholesterol LDL Cholesterol, Calc HDL Cholesterol TSH Urine Color Yellow Urine Clarity Clear Urine pH 5.5 Ur Specific [place] 1.010 Urine Protein Negative Urine Ketones Negative Urine Blood Negative Urine Nitrite Negative Urine Bilirubin Negative Urine Urobilinogen 0.2 Ur Leukocyte Esterase Negative Urine Glucose Negative COVID-19 Source Nasal/Nares SARS-CoV-2 (PCR) Negative 08/13/21 12:53 WBC RBC Hgb Hct MCV MCH MCHC RDW Plt Count MPV Immature Gran % Neutrophils % Lymphocytes % Monocytes % Eosinophils % Basophils % Nucleated RBC % Absolute Neutrophils Absolute Lymphocytes Absolute Monocytes Absolute Eosinophils Absolute Basophils PT 10.8 INR 1.1 Troponin I Triglycerides Total Cholesterol LDL Cholesterol, Calc HDL Cholesterol TSH Urine Color Urine Clarity Urine pH Ur Specific [place] Urine Protein Urine Ketones Urine Blood Urine Nitrite Urine Bilirubin Urine Urobilinogen Ur Leukocyte Esterase Urine Glucose COVID-19 Source SARS-CoV-2 (PCR) PFSH Medical History Allergic rhinitis BPH loc w urin obs/LUTS Status/post TURP. Recurrent obstructive sx. Depressive disorder Gastritis GERD with esophagitis EGD 04/23 and 09/27 chronic active gastritis + esophagitis (2001); EGD 2006 with esophagitis. EGD 2019 with gastritis Hyperlipidemia Iron deficiency Mobitz type 1 second degree atrioventricular block Obstructive sleep apnea PSG September 2017; uses oral appliance Osteoarthritis Osteopenia of lumbar spine Dexa 2020 Prediabetes Restless leg syndrome Vitamin D deficiency Surgical History Hx of transurethral resection of prostate (01/22/20) Status post left knee replacement Status post right knee replacement Family History Mother , age 92 Atrial fibrillation Hypertension Father , age 89 Parkinson disease Hypertension Sister Depression Dementia Sister Atrial fibrillation Sister Hemochromatosis Brother Melanoma Hypertension Brother Hemochromatosis Daughter Depression Daughter No problems noted. Maternal Grandfather Heart disease Maternal Grandmother Colon cancer Paternal Grandfather No problems noted. Paternal Grandmother No problems noted. Social History Smoking/Tobacco Use Status: Never Second Hand Exposure: No Smoking risk assessment performed?: Yes Alcohol Intake: current Alcohol Intake frequency: a few times a week Alcohol type: beer and wine Drug use: Never Substance use type: does not use Caregiver/Support person: No Household members: spouse Do you need help understanding health information?: Never Pets and animals: Yes Pets and animals: cat(s) Sexually active: Yes Do you think of yourself as: straight/heterosexual Current gender identity: male How often do you talk on the phone with friends or family?: three or more times per week How often do you get together with friends or relatives?: twice per week Panel score (0-1 are the most socially isolated patients): 1 NHANES result reviewed/action taken: Yes What type of physical activity do you participate in: walking and bicycling Duration: 30-45 minutes/day Seatbelt use: always Helmet use: Yes Helmet use: always Drive intox or ride w/intox emt driver: No Do you feel safe at home: Yes Do you feel safe in your relationship?: Yes
--- NOTE | 2021-08-14 15:01 | PT.INTREAT ---
Date of service: 08/14/21 Time of Service: 12:58 PT Notes Visit Reasons: cva Inpatient Physical Therapy Treatment Note [facility] Date: 08/14/2021 PRECAUTIONS: Activity as tolerated SUBJECTIVE: Denis is pleasant and stating that he is feeling much better. He asks about going home, stating that he is hopeful that he can discharge today. OBJECTIVE: PAIN: No c/o pain THEREX: Issued global LE strengthening HEP. Reviewed each exercise with patient, provided demonstration, answered questions. Patient appears to have good understanding of program. PLAN: Patient to discharge to home later today, per provider, with continued outpatient PT. TREATMENT CODE/TIME: 10 minutes; 50948 (12:58)
--- NOTE | 2021-09-18 10:53 | W.CARDEVENT ---
Date of service: 09/18/21 Time of Service: 10:53 Cardiac Event Recorder Referring Provider:: Narciso Cabral Indications:: CVA Cardiac Event Note: This is a 30-day cardiac event monitor ordered because of stroke history Predominant rhythm was sinus. Average heart rate was 76. Minimum heart rate was 48, maximum 142 There was no atrial fibrillation There were rare ventricular premature beats. There was one four beat run of nonsustained ventricular tachycardia There were rare atrial premature beats Mobitz I second-degree AV block (Wenckebach) was noted during sleep. There was no high-grade AV block nor any pauses greater than 3 seconds Patient symptoms did not correspond to any dysrhythmia
== END 2021-08-14 15:43 | disposition home or self-care (01) | DRG 66 ==
LOC: ER 16:09 → MS 16:32
PROVIDERS: Admitting Provider Family Medicine; Emergency Provider Registered Nurse Emergency; PCP Nurse Practitioner Family; Visit Provider Family Medicine
DX: I63.9 Cerebral infarction, unspecified (principal); E78.5 Hyperlipidemia, unspecified; R73.03 Prediabetes; I44.1 Atrioventricular block, second degree; G47.33 Obstructive sleep apnea (adult) (pediatric); G25.81 Restless legs syndrome; E55.9 Vitamin D deficiency, unspecified; F32.9 Major depressive disorder, single episode, unspecified; K21.9 Gastro-esophageal reflux disease without esophagitis; K21.00 Gastro-esophageal reflux disease with esophagitis, without bleeding; M85.88 Other specified disorders of bone density and structure, other site; K29.70 Gastritis, unspecified, without bleeding; Z20.822 Contact with and (suspected) exposure to COVID-19
CPT/HCPCS: 36415; 36416; 70496; 70498; 80053; 80061; 82962; 87635; 90662; 93005; 93270; 97110; 97161; 97530; 99285; 70450; 70551; 81003; 83735; 84443; 84484; 85025; 85610; 93010; 99223; 99239; J3490

== ENCOUNTER → 2021-08-21 13:36 | Outpatient (BNVA) | payer MEDICARE, BC, SELFPAY | PROVIDERS: PCP Nurse Practitioner Family; Referring Provider Family Medicine; Visit Provider Psychiatry & Neurology Neurology | DX: I63.9 Cerebral infarction, unspecified (principal); I69.354 Hemiplegia and hemiparesis following cerebral infarction affecting left non-dominant side; G47.33 Obstructive sleep apnea (adult) (pediatric); E78.5 Hyperlipidemia, unspecified | CPT/HCPCS: 99215 ==

== ENCOUNTER 2021-09-18 10:53 | Outpatient (CLI) | payer MEDICARE, BC, SELFPAY | END 2021-09-18 10:54 | LOC: CARDO 09-19 12:46 | PROVIDERS: PCP Nurse Practitioner Family; Referring Provider Family Medicine; Visit Provider Internal Medicine Cardiovascular Disease | DX: Z86.73 Personal history of transient ischemic attack (TIA), and cerebral infarction without residual deficits (principal); I47.2 Ventricular tachycardia; I44.1 Atrioventricular block, second degree | CPT/HCPCS: 93272 ==

== ENCOUNTER → 2021-09-26 09:49 | Outpatient (BNVA) | payer MEDICARE, BC, SELFPAY | PROVIDERS: PCP Nurse Practitioner Family; Referring Provider Nurse Practitioner Family; Visit Provider Urology | DX: N40.1 Benign prostatic hyperplasia with lower urinary tract symptoms (principal) | CPT/HCPCS: 99213 ==

== ENCOUNTER → 2021-10-30 09:06 | Outpatient (BNVA) | payer MEDICARE, BC, SELFPAY | PROVIDERS: PCP Nurse Practitioner Family; Referring Provider Nurse Practitioner Family; Visit Provider Psychiatry & Neurology Neurology | DX: I63.9 Cerebral infarction, unspecified (principal); G47.33 Obstructive sleep apnea (adult) (pediatric); E78.5 Hyperlipidemia, unspecified; M54.59 Other low back pain | CPT/HCPCS: 99214 ==

== ENCOUNTER 2021-10-31 03:26 | Outpatient (CLI) | payer MEDICARE, BC, SELFPAY ==
[2021-10-31 12:23] LABS: Iron 119 ug/dL (65-175); Total Iron Binding Capacity 266 ug/dL (250-450)
[2021-10-31 12:25] LABS: Calculated LDL 75 mg/dL (<100); Cholesterol 132 mg/dL (<200); Ferritin 55 ng/mL (26-388); HDL Cholesterol 37 mg/dL (40-60); Triglyceride 101 mg/dL (<150)
[2021-10-31 17:59] LABS: PSA, Diagnostic 0.6 ng/mL (0.0-4.5)
[2021-11-03 05:45] LABS: Vitamin D 25 Total 30.7 ng/mL (30-100)
== END 2021-10-31 03:27 | disposition home or self-care (01) ==
LOC: LBO 03:26
PROVIDERS: Urology; PCP Nurse Practitioner Family; Visit Provider Nurse Practitioner Family
DX: E78.5 Hyperlipidemia, unspecified (principal); E61.1 Iron deficiency; E55.9 Vitamin D deficiency, unspecified; N40.1 Benign prostatic hyperplasia with lower urinary tract symptoms; G47.33 Obstructive sleep apnea (adult) (pediatric)
CPT/HCPCS: 36415; 80061; 82306; 82728; 83540; 83550; 84153

== ENCOUNTER → 2022-05-15 08:34 | Outpatient (BNVA) | payer MEDICARE, SELFPAY | PROVIDERS: PCP Nurse Practitioner Family; Referring Provider Nurse Practitioner Family; Visit Provider Urology | DX: R39.12 Poor urinary stream (principal); R35.1 Nocturia; N40.1 Benign prostatic hyperplasia with lower urinary tract symptoms | CPT/HCPCS: 99214 ==

== ENCOUNTER 2022-06-11 02:58 | Outpatient (CLI) | payer MEDICARE, SELFPAY ==
[2022-06-11 07:46] LABS: Hemoglobin A1C 5.6 % (<5.7)
[2022-06-11 08:33] LABS: Calculated LDL 70 mg/dL (<100); Cholesterol 119 mg/dL (<200); HDL Cholesterol 38 mg/dL (40-60); Triglyceride 58 mg/dL (<150)
== END 2022-06-11 02:59 | disposition home or self-care (01) ==
PROVIDERS: PCP Nurse Practitioner Family; Visit Provider Nurse Practitioner Family
DX: E78.5 Hyperlipidemia, unspecified (principal); R73.03 Prediabetes; R53.83 Other fatigue
CPT/HCPCS: 36415; 80061; 83036; 84443

== ENCOUNTER → 2022-06-18 02:28 | Outpatient (CLI) | payer MEDICARE, SELFPAY ==
--- NOTE | 2022-06-18 08:00 | DI.MRI_ITS ---
Exam(s) MR LUMBAR SPINE WO EXAM: MR LUMBAR SPINE WO CLINICAL HISTORY: Worsening back pain, w/o radiculopathy, m54.9 TECHNIQUE: Multiplanar multisequence MRI of the Lumbar Spine was performed. CONTRAST MATERIAL: Noncontrast COMPARISON: CR XR DEXA BONE DENSITY W/WO ARTUR from 07/24/2021 FINDINGS: Bones: The last intervertebral disc space is designated the L5/S1 level for the numbering purpose of this examination. The vertebral body heights are well maintained. Alignment is satisfactory. The sig nal characteristics are unremarkable. Cord: The conus tip ends at the T12 level. It is of normal size and signal intensity. T12-L1: No disc herniations or bulges are present. L1-2: Moderate loss of disc height. Endplate osteophytes projecting circumferentially, greater towa rd the right side. Severe right neural foraminal encroachment. Moderate left neural foraminal encro achment. No significant central canal stenosis. L2-3: Mild concentric disc bulging. Small endplate osteophytes. Mild bilateral neural foraminal becky rowing. L3-4: Disc bulging eccentric toward the left. Facet degenerative changes, left greater than right a s well as ligamentous hypertrophy. Severe bilateral neural foraminal narrowing. Qshc-[id number] ce ntral canal stenosis.. L4-5: Moderate broad-based disc bulging. Facet degenerative changes and lytic ligamentous hypertrop hy combine to produce severe central canal stenosis. Mild bilateral neural foraminal narrowing. L5-S1: No disc herniations or bulges are present. There are facet degenerative changes but no signif icant central canal stenosis or neural foraminal narrowing. Soft tissues: The visualized SI joints and sacrum are well maintained. The paraspinal soft tissues ar e unremarkable. IMPRESSION: Multilevel degenerative disc changes and facet degenerative changes combine to produce severe central canal stenosis at L4-5. Neural foraminal narrowing is noted at multiple levels. DATA REPOSITORY:
== END ==
PROVIDERS: PCP Nurse Practitioner Family; Visit Provider Nurse Practitioner Family
DX: M48.061 Spinal stenosis, lumbar region without neurogenic claudication; M51.26 Other intervertebral disc displacement, lumbar region; M51.36 Other intervertebral disc degeneration, lumbar region
CPT/HCPCS: 72148

== ENCOUNTER → 2022-12-11 08:23 | Outpatient (BNVA) | payer MEDICARE, SELFPAY | PROVIDERS: PCP Nurse Practitioner Family; Visit Provider Urology | DX: R39.89 Other symptoms and signs involving the genitourinary system (principal); N52.9 Male erectile dysfunction, unspecified; N40.1 Benign prostatic hyperplasia with lower urinary tract symptoms | CPT/HCPCS: 36415; 81003; 99214 ==

== ENCOUNTER 2022-12-11 09:21 | Outpatient (REF) | payer MEDICARE, SELFPAY ==
[2022-12-14 11:40] LABS: PSA, Diagnostic 0.8 ng/mL (<=4.5)
== END 2022-12-11 09:22 | disposition home or self-care (01) ==
LOC: LBN 09:21
PROVIDERS: PCP Nurse Practitioner Family; Visit Provider Urology
DX: N40.1 Benign prostatic hyperplasia with lower urinary tract symptoms (principal)
CPT/HCPCS: 84153

== ENCOUNTER 2023-02-12 02:09 | Outpatient (CLI) | payer MEDICARE, SELFPAY ==
[2023-02-12 13:41] LABS: Abs Immature Grans 0.02 10^3/uL (0.0-0.06); Absolute Basophil Count 0.05 10^3/uL (0.0-0.2); Absolute Eosinophil Count 0.14 10^3/uL (0.0-0.7); Absolute Lymphocyte Count 0.75 10^3/uL (1.2-3.4); Absolute Monocyte Count 0.68 10^3/uL (0.1-0.8); Absolute Neutrophil Count 5.11 10^3/uL (1.2-6.7); Basophils % 0.7; Eosinophils % 2.1; HCT 36.4 % (40.0-50.0); HGB 11.1 g/dL (13.5-17.5); Immature Grans % 0.3; Lymphocytes % 11.1; MCH 22.7 pg (27.0-33.0); MCHC 30.5 % (32.0-36.0); MCV 74 fL (80-95); MPV 10.5 fL (8.0-11.0); Monocytes % 10.1; Neutrophils % 75.7; Platelet Count 252 10^3/uL (130-400); RBC 4.89 10^6/uL (4.36-5.78); RDW 15.5 % (11.8-14.1); RDW-SD 40.9 fL; WBC 6.75 10^3/uL (4.4-10.8)
[2023-02-12 13:50] LABS: Diff Comment RBC Morph Reviewed; Microcytosis 1+
[2023-02-12 14:24] LABS: BUN 15 mg/dL (7-18); Calcium 8.9 mg/dL (8.5-10.1); Chloride 104 mmol/L (98-107); Estimated GFR 80.97 (mL/min/1.73m2); Ferritin 13 ng/mL (26-388); Glucose 109 mg/dL (74-106); Potassium 4.1 mmol/L (3.5-5.1); Sodium 140 mmol/L (136-145); Vitamin B12 149 pg/mL (193-986)
[2023-02-12 14:29] LABS: Iron 27 ug/dL (65-175)
[2023-02-15 11:40] LABS: Lab Add On Test DONE
[2023-02-15 23:32] LABS: Folate 8.7 ng/mL (See Note)
== END 2023-02-12 02:10 | disposition home or self-care (01) ==
LOC: LBO 02:09
PROVIDERS: PCP Nurse Practitioner Family; Visit Provider Family Medicine
DX: D64.9 Anemia, unspecified (principal); E87.1 Hypo-osmolality and hyponatremia; E53.8 Deficiency of other specified B group vitamins
CPT/HCPCS: 36415; 80048; 82607; 82728; 82746; 83540; 85025

== ENCOUNTER 2023-02-22 08:29 | Outpatient (CLI) | payer MEDICARE, SELFPAY | END 2023-02-22 08:30 | disposition home or self-care (01) | PROVIDERS: PCP Nurse Practitioner Family; Visit Provider Nurse Practitioner Family | DX: I49.9 Cardiac arrhythmia, unspecified (principal) | CPT/HCPCS: 93246 ==

== ENCOUNTER → 2023-02-24 08:24 | Outpatient (BNVA) | payer MEDICARE, SELFPAY | PROVIDERS: PCP Nurse Practitioner Family; Referring Provider Nurse Practitioner Family; Visit Provider Surgery | DX: D50.9 Iron deficiency anemia, unspecified (principal) | CPT/HCPCS: 99213 ==

== ENCOUNTER 2023-03-16 12:14 | Outpatient (CLI) | payer MEDICARE, SELFPAY ==
--- NOTE | 2023-03-16 15:04 | CER_ITS ---
Date of service: 03/16/23 Time of Service: 15:04 Cardiac Event Recorder Referring Provider:: Ginger Mejía Indications:: Cardiac arrhythmia Cardiac Event Note: This is a 14-day quality assurance monitor Predominant rhythm was sinus with an average heart rate of 72. Minimum was 37, maximum 149 There were rare ventricular ectopic beats. Rare couplets, several triplets There were occasional atrial premature beats There were several episodes of heart block with nonconducted P waves. At least 1 of these appeared to be Mobitz 1 second-degree degree AV block, though others seemed Mobitz 2 or high-grade AV block. All of these occurred during sleep. The longest pause was 4.11 seconds There was no atrial fibrillation Patient symptoms were reported which overall did not correlate to any dysrhythmia
== END 2023-03-16 12:15 | disposition home or self-care (01) ==
LOC: CARDOPNVT 12:14
PROVIDERS: PCP Nurse Practitioner Family; Visit Provider Internal Medicine Cardiovascular Disease
DX: I49.9 Cardiac arrhythmia, unspecified (principal); I49.1 Atrial premature depolarization; I44.1 Atrioventricular block, second degree
CPT/HCPCS: 93248

== ENCOUNTER 2023-03-25 11:26 | Day surgery (SDC) | payer MEDICARE, SELFPAY ==
--- NOTE | 2023-03-25 11:04 | W.PM.DSUDISC ---
Date of service: 03/25/23 Time of Service: 13:55 Discharge Plan Disposition Patient Disposition: Home Condition: Good Discharge Details Reason For Visit: EGD and colonoscopy Attending Provider: Ramesh Rubalcava Primary Care Provider: Ginger Mejía Home Meds and New Rx's Prescriptions: Continued naproxen sodium 220 mg capsule 220 mg PO BID PRN tadalafil [Cialis] 5 mg tablet 5 mg PO DAILY Qty: 90 4RF Rx Instructions: take daily for urinary stream calcium carbonate [Calcium 600] 600 mg calcium (1,500 mg) tablet 600 mg PO DAILY atorvastatin 10 mg tablet 10 mg PO QHS Qty: 90 3RF loratadine 10 mg tablet 10 mg PO DAILY PRN (Reason: allergy symptoms) Qty: 90 3RF psyllium husk 0.52 GM capsule 0.52 gm PO DAILY cholecalciferol (vitamin D3) 50 mcg (2,000 unit) capsule 2,000 unit PO DAILY Qty: 90 4RF Rx Instructions: Take 1 daily fluticasone propionate 50 mcg/actuation spray,suspension 2 spray TYREL DAILY PRN (Reason: allergy symptoms) Qty: 3 3RF famotidine 20 mg tablet 20 mg PO DAILY Qty: 90 3RF ferrous sulfate 325 mg (65 mg iron) tablet 325 mg PO .Daily to twice a day Qty: 180 3RF Rx Instructions: Take 1 tablet daily to twice a day cyanocobalamin (vitamin B-12) 1,000 mcg capsule 1,000 mcg PO DAILY Qty: 90 3RF aspirin 81 mg tablet,chewable 81 mg PO DAILY Qty: 30 0RF Discontinued polyethylene glycol 3350 17 gram/dose powder 238 g PO ONCE Qty: 238 0RF Rx Instructions: take per colonoscopy instructions bisacodyl [Dulcolax (bisacodyl)] 5 mg tablet,delayed release (DR/EC) 5 mg PO ONCE Qty: 4 0RF Rx Instructions: take per colonoscopy instructions Discharge Instructions Instructions: Diverticulosis (GEN), Diverticulosis Diet (GEN), Hemorrhoids (GEN) Additional Instructions: Denis, we were able to complete the endoscopies today without any difficulty. Your upper endoscopy appeared very normal. As we talked about, I did some biopsies of the stomach to rule out sources of anemia that are not evident to the naked eye. Your colonoscopy shows 2 potential sources for anemia. First, you have a fair amount of internal hemorrhoids. These can often times be exacerbated by the colonoscopy prep so it is a little difficult to estimate how much they have contributed to your anemia. You also have a fair amount of sigmoid diverticulosis. Although most people know diverticulosis from inflammation (diverticulitis) which is experienced as pain usually in the left lower abdomen, or pubic area, diverticula can also be a source of chronic colonic blood loss. Currently, there is no active signs of bleeding. Although the segment of your large intestine can be removed with an operation, I would not recommend that as a first-line treatment for somebody with iron deficiency anemia. For now, I think we can wait with the pathology results from the stomach biopsies. I would try to maximize general therapies for hemorrhoids like tailoring your diet and supplementing with dietary fiber to target large volume bulky soft bowel movements. Hfff-vlg-vufrlal hemorrhoid therapies can also be effective, although these are typically aimed towards pain relief rather than bleeding symptoms. I will be in touch when I have the results of the pathology report. I will also keep an eye out for future blood test to see if your anemia has improved. 1. If tolerated, consume a soft, low fiber diet for 1-2 days. 2[address] Do not drive, drink alcohol, operate machinery, make critical decisions, or do activities that require coordination or balance for 24 hours. 3. Because air was put into your colon during the procedure, expelling air from your rectum (passing gas or farting) is normal. 4. You may not have a bowel movement for 1-3 days because of the colonoscopy prep. This is normal. 5. You may experience a sore throat for 24 to 48 hours. You may use throat lozenges or gargle with warm salt water to relieve the discomfort. 6. Because air was put into your stomach during the procedure, you may experience some belching. 7. Go directly to the emergency room if you notice any of the following: Develop chills (warm to touch), or if you have a thermometer and your temperature is above 101 Difficulty breathing or difficultly swallowing Persistent vomiting Severe abdominal pain, other than gas cramps Severe chest pain Black, tarry stools Any bleeding ? exceeding one tablespoon 8. Call your physician if the site where your intravenous was started becomes red, swollen, painful, and warm to touch. 9. Your physician has reviewed your pre-procedure medications. Please continue to take those medications as previously ordered. You will be given specific information/education regarding any changes to your medications before leaving. Activity:: Activity as Tolerated Diet:: As Tolerated Discharge Orders Discharge Orders: Discharge Order (Routine); Ordered 03/25/23 Ordered By: Ramesh Rubalcava DS: Diagnosis Discharge Diagnosis (1) Iron deficiency anemia: Status: Chronic Asessment and Plan: Follow-up on pathology reports
--- NOTE | 2023-03-25 11:05 | ENDO_ITS ---
Date of service: 03/25/23 Time of Service: 13:59 Endoscopy Report DATE OF PROCEDURE: 03/25/23 PRE-OP DIAGNOSIS: Iron deficiency anemia POST-OP DIAGNOSIS: other (Internal hemorrhoids, diverticulosis) PROCEDURE: EGD with biopsies and colonoscopy SURGEON: Ramesh Rubalcava ANESTHESIA TYPE: General:No Airway ESTIMATED BLOOD LOSS: 10 PATHOLOGY: other (Biopsies of duodenum, gastric antrum, gastric body.) COMPLICATIONS: None DISPOSITION: same day INDICATIONS: Denis is a 68 year old male with iron deficiency anemia of unknown etiology. He is here for diagnostic bidirectional endoscopy PREP: Miralax/Dulcolax PROCEDURE START TIME: 13:02 PROCEDURE END TIME: 13:34 COLONOSCOPY RETRACTION TIME: 15 FINDINGS: Internal hemorrhoids, sigmoid diverticulosis PROCEDURE DESCRIPTION: After the initiation of monitored anesthetic care, and with the assistance of a bite block, I advanced a standard gastroscope through the mouth past the hypopharynx and into the esophagus.? Under the direct vision of the scope, I advanced down the esophagus into the stomach.? Once I entered the stomach, I performed a brief inspection, followed by retroflexion towards the gastric cardia.? This appeared normal.? After that, I gently advanced the scope around the incisura angularis and examined the pylorus.? This also appeared normal.? Next, I advanced the scope through the pylorus into the duodenum.? The mucosa was pink and healthy appearing.? There were no abnormalities.? I was able to visualize bile draining into the duodenum through the ampulla Vater. I performed random biopsies of the duodenum with cold forceps. There was minimal bleeding.? I brought the scope back into the stomach, and again examined and once again examined all portions. I did not see any gross pathology. I perform random biopsies of the antrum and gastric body with cold forceps. There was minimal bleeding..? I then gently desufflated some of the stomach, and withdrew the endoscope into the distal esophagus. The GE junction and Z-line were normal-appearing at 38 cm. finally, I withdrew the scope along the length of the esophagus taking great care to examine the entirety of the mucosa.? I did not appreciate any abnormalities. We then rolled auto into the left lateral decubitus position. I began by performing an external anorectal exam.? Perineum and skin were normal, as was the anal verge.? There was no evidence of external hemorrhoids.? Next, I performed a digital rectal exam.? I did appreciate any abnormal findings.? Next, I advanced a colonoscope into the rectal vault.? I performed retroflexion.? There were large internal hemorrhoids.? Using insufflation, I then advanced the colonoscope beyond the rectal folds and into the sigmoid colon before advancing towards the cecum.? There is extensive [place] sigmoid diverticulosis. Great care was taken to navigate the true lumen of the large intestine. The quality of the prep was adequate.? The scope was noted to be in the cecum by identification of the ileocecal valve and appendiceal orifice.? I t hen began withdrawing the colonoscope using repeated irrigation as necessary for full evaluation of the colonic mucosa. ?Once the scope was withdrawn to the level of the rectum, great care was taken to examine portions of the rectal folds.? Finally, the scope was withdrawn and the patient was brought to the same-day surgery recovery unit as the anesthetic wore off. I did not see any evidence of polyps, tumors, or any arterial or venous malformations. ?The findings and instructions were shared with the patient prior to discharge.
[2023-03-25 11:26] VITALS: BP 127/97; PULSE 67; RESP 18; TEMP 36.7; O2SAT 98
[2023-03-25] MEDS: Lactated Ringers 1,000 ML 80 ML IV (11:56)
--- NOTE | 2023-03-25 12:43 | W.ANESPRE ---
General Info Date of Service Date Performed: 03/25/23 Height: 5 ft 10 in Weight: 75.6 kg Body Mass Index (BMI): 23.9 Surgical Procedure: Operation Date: 03/25/23 13:05 Proposed Procedure Side Surgeon p Colonoscopy/Gastroscopy Ramesh Rubalcava MD Actual Procedure Side Surgeon p Colonoscopy/Gastroscopy Ramesh Rubalcava MD Pre-Op Diagnosis Post-Op Diagnosis ANEMIA, GERD Meds Allergies and Home Medications Allergies Allergy/AdvReac Type Severity Reaction Status Date / Time tamsulosin HCl [From Flomax] AdvReac Severe LETHARGIC Verified 03/25/23 11:45 lactose AdvReac Unknown INTOLERANT Verified 03/25/23 11:45 finasteride AdvReac Intermediate Other (See Uncoded 03/25/23 11:45 Comment) Home Medication Medication Instructions Recorded psyllium husk 0.52 gram capsule 0.52 gm PO DAILY 05/28/17 naproxen sodium 220 mg capsule 220 mg PO BID PRN 04/19/19 cholecalciferol (vitamin D3) 50 2,000 unit PO DAILY #90 caps 06/11/21 mcg (2,000 unit) capsule aspirin 81 mg chewable tablet 81 mg PO DAILY #30 tabs 08/14/21 fluticasone propionate 50 2 spray intranasal DAILY PRN 08/03/22 mcg/actuation nasal allergy symptoms #3 ea spray,suspension tadalafil 5 mg tablet (Cialis) 5 mg PO DAILY sexual activity #90 12/11/22 tabs famotidine 20 mg tablet 20 mg PO DAILY #90 tabs 02/01/23 cyanocobalamin (vitamin B-12) 1,000 mcg PO DAILY #90 caps 02/15/23 1,000 mcg capsule ferrous sulfate 325 mg (65 mg 325 mg PO .Daily to twice a day 02/15/23 iron) tablet #180 tabs calcium carbonate 600 mg calcium 600 mg PO DAILY 02/24/23 (1,500 mg) tablet (Calcium) atorvastatin 10 mg tablet 10 mg PO QHS #90 tabs 03/04/23 loratadine 10 mg tablet 10 mg PO DAILY PRN allergy 03/04/23 symptoms #90 tabs Current Visit Medications: Current Medications Generic Name Dose Route Start Last Admin Trade Name Freq PRN Reason Stop Dose Admin Hyoscyamine Sulfate 0.125 mg 03/25/23 11:07 Hyoscyamine 0.125 Mg Sl/Oral/Chew SL 04/24/23 11:06 DIRECTED PRN Ringer's Solution 1,000 mls @ 80 mls/hr 03/25/23 06:00 03/25/23 11:56 IV 04/23/23 23:59 80 mls/hr INFUSION LASHON Administration IV Miscellaneous Supplies 1 each 03/25/23 06:00 Iv Access IV 04/23/23 23:59 DIRECTED LASHON Ondansetron HCl 4 mg 03/25/23 11:07 Ondansetron 4 Mg/2 Ml Vial IVP 04/24/23 11:06 Q4H PRN PRN Nausea / Vomiting Sodium Chloride 0 ml 03/25/23 06:00 Normal Saline Flush 10 Ml Syr IV 04/23/23 23:59 PRN PRN Sodium Chloride 0 ml 03/25/23 06:00 Normal Saline 10 Ml Vial IJ 04/23/23 23:59 DIRECTED PRN Sterile Water 0 ml 03/25/23 06:00 Water,Injection,Sterile 10 Ml Vial IJ 04/23/23 23:59 DIRECTED PRN PFSH Active Problems Active Problems: Problem Status Onset Code Restless leg syndrome G25.81 Allergic rhinitis J30.9 Hx of Mobitz type I block Z86.79 BPH loc w urin obs/LUTS N40.1 Hyperlipidemia E78.5 GERD with esophagitis K21.00 Osteoarthritis M19.90 Obstructive sleep apnea G47.33 Osteopenia of lumbar spine M85.88 Prediabetes R73.03 Vitamin D deficiency E55.9 Degenerative joint disease (DJD) of lumbar spine M47.816 Periodic limb movement disorder G47.61 Iron deficiency anemia D50.9 Vitamin B 12 deficiency E53.8 Major depressive disorder, recurrent F33.9 Medical History Medical History BPH w urinary obs/LUTS CVA (cerebral vascular accident) (~07/2021) Per pt. states no residual effects Mobitz type 1 second degree atrioventricular block Surgical History Surgical History Hx of transurethral resection of prostate (01/22/20) Status post left knee replacement Status post right knee replacement Tobacco Smoking/Tobacco Use Status: Never Passive smoking exposure: No Second hand exposure: No Alcohol Alcohol Intake: current Alcohol intake frequency: a few times a week Alcohol type: beer Substance Use Substance use: Never Substance use type: does not use Vital Signs and Lab Results Vital Signs Most Recent Vital Signs in EMR: Most Recent Vital Signs Temp Pulse Resp BP Pulse Ox 36.7 C 67 18 127/97 H 98 03/25/23 11:26 03/25/23 11:26 03/25/23 11:26 03/25/23 11:26 03/25/23 11:26 Lab Results Blood Type / Crossmatch: No Data to Display Complete Blood Count: No Data to Display Complete Metabolic Panel: No Data to Display Liver Function Panel: No Data to Display Coagulation Panel: No Data to Display Cardiac Panel: No Data to Display Arterial Blood Gas: No Data to Display Venous Blood Gas: No Data to Display Pancreas Panel: No Data to Display Thyroid Panel: No Data to Display Infectious Disease: No Data to Display Blood Cultures: No Data to Display Toxicology Panel: No Data to Display Anesthesia Assessment and Plan Anesthesia History Personal History: No History of Anesthesia Complications Family History: No Family History of Anesthesia Complications Exercise Tolerance Exercise Tolerance: Metabolic Equivalents>4 Pertinent Negatives Pertinent Negatives: No Symptoms of GERD Cardiac & Pulmonary Exam Cardiac Exam: Normal S1/S2 Heart Sounds Pulmonary Exam: Clear Bilateral Breath Sounds and No cough or Cold Implantable Cardiac Device Does patient have a Pacemaker or an ICD?: No Airway Exam Known Difficult Airway: No Mallampati Class: 2 Mouth Opening: Normal (> 3cm) Thyromental Distance: Greater than 3 cm Neck Range of Motion: Full ROM Neck Circumference: Normal Teeth Condition: Normal Dentition ASA Classification ASA Score: ASA 2 Emergency Case?: No NPO Status NPO Status: NPO Clears >2 hours, Solids >8 hours Anesthesia Plan Resuscitation Status: Full Code Anesthesia Technique: General Anesthesia Airway Planned: Natural Airway Monitors Used: Standard Monitors
[2023-03-25 12:46] VITALS: BMI 23.9
--- NOTE | 2023-03-25 12:54 | W.ANESPOSTOP ---
Postoperative Evaluation Date, Time and Location Date Performed: 03/25/23 Time Performed: 13:58 Patient Location: Day Surgery Unit Vital Signs Most Recent Imported Vital Signs: Most Recent Vital Signs Temp Pulse Resp BP Pulse Ox 36.7 C 67 18 127/97 H 98 03/25/23 11:26 03/25/23 11:26 03/25/23 11:26 03/25/23 11:26 03/25/23 11:26 Pain Score Most Recent Pain Score: Most Recent Pain Score Pain Level 0 03/25/23 11:26 Assessment Mental Status: Awake (Alert & Oriented to Patient Baseline) Airway and Respiratory Function: Patent airway with normal (patient baseline) respiratory exam Cardiovascular Function: Hemodynamically Stable Hydration Status: Adequately Hydrated Nausea & Vomiting: No Nausea or Vomiting Pain: Pt. Denies Any Pain Peripheral Nerve Block: Patient did not receive a nerve block
--- NOTE | 2023-03-25 13:03 | STOM_PTH ---
PATIENT: Denis Loomis III LOC: [facility] U#:[id number] AGE/SX: 68/M ROOM: RE03/25/[address]: Ramesh Rubalcava MD : 1955 BED: DIS: 03/25/2023 SPEC #: [id number] RECD: 03/25/23 16:14 STATUS: GALEN REAdair #: [id number] HERIBERTO: 03/25/23 13:[address]: Ramesh Rubalcava DEPT: Surgical Specimen RECD BY: Jing Blackwell ENTERED: 03/25/23 16:16 SP TYPE: STOMACH OTHR DR: DIANNE Martinez Tissues: 1 - BIOPSY BOWEL 2 - STOMACH BIOPSY 3 - STOMACH BIOPSY Procedures: GROSS AND MICRO LEVEL 4 Comments: [id number]
[2023-03-25 13:48] VITALS: BP 125/94; PULSE 89; RESP 18; TEMP 36.6; O2SAT 96
[2023-03-25 14:20] VITALS: BP 119/84; PULSE 70; RESP 17; TEMP 36.6; O2SAT 99
== END 2023-03-25 14:55 | disposition home or self-care (01) ==
PROVIDERS: PCP Nurse Practitioner Family; Visit Provider Surgery
PROC: (CPT 45378; principal; 2023-03-25 13:00)
DX: D50.9 Iron deficiency anemia, unspecified (principal); K57.30 Diverticulosis of large intestine without perforation or abscess without bleeding; K64.8 Other hemorrhoids; K21.00 Gastro-esophageal reflux disease with esophagitis, without bleeding; R73.03 Prediabetes; K31.89 Other diseases of stomach and duodenum
CPT/HCPCS: 45378; 43239; 88305; J2704

== ENCOUNTER 2023-04-14 08:12 | Outpatient (CLI) | payer MEDICARE, SELFPAY ==
[2023-04-14 12:33] LABS: Abs Immature Grans 0.02 10^3/uL (0.0-0.06); Absolute Basophil Count 0.03 10^3/uL (0.0-0.2); Absolute Eosinophil Count 0.23 10^3/uL (0.0-0.7); Absolute Lymphocyte Count 0.76 10^3/uL (1.2-3.4); Absolute Monocyte Count 0.57 10^3/uL (0.1-0.8); Absolute Neutrophil Count 4.18 10^3/uL (1.2-6.7); Basophils % 0.5; HCT 46.4 % (40.0-50.0); HGB 14.7 g/dL (13.5-17.5); Immature Grans % 0.3; Lymphocytes % 13.1; MCH 25.7 pg (27.0-33.0); MCHC 31.7 % (32.0-36.0); MCV 81 fL (80-95); MPV 11.2 fL (8.0-11.0); Monocytes % 9.8; Neutrophils % 72.3; Platelet Count 232 10^3/uL (130-400); RBC 5.71 10^6/uL (4.36-5.78); RDW 22.5 % (11.8-14.1); WBC 5.79 10^3/uL (4.4-10.8)
[2023-04-14 12:54] LABS: Ferritin 53 ng/mL (26-388); Vitamin B12 383 pg/mL (193-986)
[2023-04-14 13:17] LABS: Anisocytosis 1+; Poikilocytes 1+
[2023-04-23 08:58] LABS: Intrinsic Factor Blocking Ab Negative (Negative)
== END 2023-04-14 08:13 | disposition home or self-care (01) ==
LOC: LOS 08:13
PROVIDERS: PCP Nurse Practitioner Family; Visit Provider Nurse Practitioner Family
DX: E53.8 Deficiency of other specified B group vitamins (principal); D50.9 Iron deficiency anemia, unspecified
CPT/HCPCS: 36415; 83516; 82607; 82728; 85025; 86340

== ENCOUNTER → 2023-12-10 08:28 | Outpatient (BNVA) | payer MEDICARE, SELFPAY | PROVIDERS: PCP Nurse Practitioner Family; Referring Provider Nurse Practitioner Family; Visit Provider Urology | DX: N40.1 Benign prostatic hyperplasia with lower urinary tract symptoms (principal); R39.12 Poor urinary stream | CPT/HCPCS: 99214 ==

== ENCOUNTER 2024-01-05 01:32 | Outpatient (CLI) | payer MEDICARE, SELFPAY ==
[2024-01-05 07:18] LABS: HCT 43.7 % (40.0-50.0); HGB 14.5 g/dL (13.5-17.5); MCH 29.6 pg (27.0-33.0); MCHC 33.2 % (32.0-36.0); MCV 89 fL (80-95); MPV 9.9 fL (8.0-11.0); Platelet Count 173 10^3/uL (130-400); RDW-SD 39.1 fL; WBC 5.15 10^3/uL (4.4-10.8)
[2024-01-05 08:00] LABS: Vitamin D 25 Total 27.7 ng/mL (30-100)
[2024-01-05 08:03] LABS: ALT 22 U/L (16-63); AST 18 U/L (15-37); Albumin 3.4 g/dL (3.4-5.0); Alkaline Phosphatase 72 U/L (46-116); Anion Gap 6.4 mmol/L (3-11); BUN 13 mg/dL (7-18); Bilirubin, Total 0.8 mg/dL (0.2-1.0); CO2 30.6 mmol/L (21.0-32.0); CREATININE 0.9 mg/dL (0.70-1.30); Calcium 8.9 mg/dL (8.5-10.1); Chloride 104 mmol/L (98-107); Estimated GFR 91.88 (mL/min/1.73m2); Ferritin 73 ng/mL (26-388); Glucose 101 mg/dL (74-106); Potassium 4.5 mmol/L (3.5-5.1); Sodium 141 mmol/L (136-145); Total Protein 7.1 g/dL (6.4-8.2); Vitamin B12 674 pg/mL (193-986)
[2024-01-05 21:17] LABS: PSA, Diagnostic 0.7 ng/mL (<=6.5)
== END 2024-01-05 01:33 | disposition home or self-care (01) ==
LOC: LBO 01:32
PROVIDERS: Urology; PCP Nurse Practitioner Family; Visit Provider Nurse Practitioner Family
DX: D50.9 Iron deficiency anemia, unspecified (principal); E55.9 Vitamin D deficiency, unspecified; E53.8 Deficiency of other specified B group vitamins; G25.81 Restless legs syndrome; I44.1 Atrioventricular block, second degree; N40.1 Benign prostatic hyperplasia with lower urinary tract symptoms
CPT/HCPCS: 36415; 80053; 82306; 85027; 82607; 82728; 84153

== ENCOUNTER → 2024-04-04 11:16 | Outpatient (BNVA) | payer MEDICARE, SELFPAY | PROVIDERS: PCP Nurse Practitioner Family; Referring Provider Nurse Practitioner Family; Visit Provider Surgery | DX: K29.40 Chronic atrophic gastritis without bleeding (principal) | CPT/HCPCS: 99213 ==

== ENCOUNTER 2024-04-19 08:27 | Day surgery (SDC) | payer MEDICARE, SELFPAY ==
--- NOTE | 2024-04-18 16:35 | W.PM.DSUDISC ---
Date of service: 04/19/24 Time of Service: 09:33 Discharge Plan Disposition Patient Disposition: Home Condition: Good Discharge Details Reason For Visit: Surveillance EGD for atrophic gastritis Attending Provider: Ramesh Rubalcava Primary Care Provider: Ginger Mejía Home Meds and New Rx's Prescriptions: Continued naproxen sodium 220 mg capsule 220 mg PO BID PRN calcium carbonate [Calcium 600] 600 mg calcium (1,500 mg) tablet 600 mg PO DAILY loratadine 10 mg tablet 10 mg PO DAILY PRN (Reason: allergy symptoms) Qty: 90 3RF ferrous sulfate 325 mg (65 mg iron) tablet 325 mg PO DAILY Qty: 90 3RF Rx Instructions: Take 1 tablet daily cyanocobalamin (vitamin B-12) 1,000 mcg capsule 1,000 mcg PO DAILY Qty: 90 3RF atorvastatin 10 mg tablet 10 mg PO QHS Qty: 90 3RF cholecalciferol (vitamin D3) 50 mcg (2,000 unit) capsule 2,000 unit PO DAILY Qty: 90 4RF Rx Instructions: Take 1 daily citalopram 10 mg tablet 10 mg PO DAILY Qty: 90 3RF omeprazole 20 mg capsule,delayed release(DR/EC) 20 mg PO DAILY psyllium husk 0.52 GM capsule 0.52 gm PO DAILY fluticasone propionate 50 mcg/actuation spray,suspension 2 spray TYREL DAILY PRN (Reason: allergy symptoms) Qty: 3 3RF tadalafil [Cialis] 5 mg tablet 5 mg PO DAILY Qty: 90 4RF Rx Instructions: take daily for urinary stream aspirin 81 mg tablet,chewable 81 mg PO DAILY Qty: 30 0RF Discharge Instructions Instructions: Upper Endoscopy (DC) Additional Instructions: Denis, we are able to complete your endoscopy today without any issues. Similar to last time, to the naked eye, your stomach largely appears normal. As we discussed before hand, I did multiple biopsies in specific areas of the stomach for the pathologist to review. Her pathology has been moving along a little faster compared to last time, but I would expect at least a week before I get the results. Once I have them, I will give you a phone call and we can discuss plans moving forward. If you need anything in the meantime, please do not hesitate to call. 1. If tolerated, consume a soft, low fiber diet for 1-2 days. 2[address] Do not drive, drink alcohol, operate machinery, make critical decisions, or do activities that require coordination or balance for 24 hours. 3. Because air was put into your colon during the procedure, expelling air from your rectum (passing gas or farting) is normal. 4. You may not have a bowel movement for 1-3 days because of the colonoscopy prep. This is normal. 5. You may experience a sore throat for 24 to 48 hours. You may use throat lozenges or gargle with warm salt water to relieve the discomfort. 6. Because air was put into your stomach during the procedure, you may experience some belching. 7. Go directly to the emergency room if you notice any of the following: Develop chills (warm to touch), or if you have a thermometer and your temperature is above 101 Difficulty breathing or difficultly swallowing Persistent vomiting Severe abdominal pain, other than gas cramps Severe chest pain Black, tarry stools Any bleeding ? exceeding one tablespoon 8. Call your physician if the site where your intravenous was started becomes red, swollen, painful, and warm to touch. 9. Your physician has reviewed your pre-procedure medications. Please continue to take those medications as previously ordered. You will be given specific information/education regarding any changes to your medications before leaving. Activity:: Activity as Tolerated Diet:: As Tolerated Discharge Orders Discharge Orders: Discharge Order (Routine); Ordered 04/18/24 Ordered By: Ramesh Rubalcava DS: Diagnosis Discharge Diagnosis (1) Chronic atrophic gastritis: Status: Chronic Asessment and Plan: Follow-up on biopsy results
--- NOTE | 2024-04-18 16:37 | W.PM.ENDDOP ---
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 He is here for surveillance endoscopy with directed biopsies PROCEDURE START TIME: :19 PROCEDURE END TIME: : FINDINGS: Normal esophagus, with GE junction and Z-line at 38 cm from the incisors. Largely normal-appearing stomach PROCEDURE DESCRIPTION: After the initiation of anesthesia, and with the assistance of a bite block, I advanced a standard gastroscope through the mouth past the hypopharynx and into the esophagus.? Under the direct vision of the scope, I advanced down the esophagus towards the stomach.? Once I entered the stomach, I performed a brief inspection, followed by retroflexion towards the gastric cardia.? This appeared normal. I do not see any signs of any hiatal hernia after that, I gently advanced the scope around the incisura angularis and examined the pylorus.? Narrowband imaging was used to assist with analysis. I saw no evidence of any worrisome pathology. Great care was taken to examine all portions of the gastric body, antrum, and prepyloric region. I advanced the camera down to the pylorus, and approximately 2 cm proximal to the pylorus I performed cold forceps biopsies of the lesser and greater curvatures. There was minimal bleeding. I backed the camera back up to the incisura angularis and perform cold forceps biopsies of this as well. Finally, biopsies of the gastric body were performed along the lesser and greater curve. Similar to the others, there was minimal and appropriate amount of bleeding. The stomach was then emptied, and the camera was brought back out along the length of the esophagus examining at 1 last time. No other pathology was appreciated.
--- NOTE | 2024-04-19 06:12 | ANES.PREOP_ITS ---
General Info Date of Service Date Performed: 04/19/24 Height: 5 ft 10 in Weight: 77.564 kg Body Mass Index (BMI): 24.5 Surgical Procedure: Operation Date: 04/19/24 09:50 Proposed Procedure Side Surgeon p Gastroscopy Ramesh Rubalcava MD Meds Allergies and Home Medications Allergies Allergy/AdvReac Type Severity Reaction Status Date / Time tamsulosin HCl [From Flomax] AdvReac Severe LETHARGIC Verified 04/19/24 08:33 lactose AdvReac Unknown INTOLERANT Verified 04/19/24 08:33 finasteride AdvReac Intermediate Other (See Uncoded 04/19/24 08:33 Comment) Home Medication Medication Instructions Recorded psyllium husk 0.52 gram capsule 0.52 gm PO DAILY 05/28/17 naproxen sodium 220 mg capsule 220 mg PO BID PRN 04/19/19 aspirin 81 mg chewable tablet 81 mg PO DAILY #30 tabs 08/14/21 calcium carbonate (Calcium 600) 600 mg PO DAILY 02/24/23 loratadine 10 mg tablet 10 mg PO DAILY PRN allergy 03/04/23 symptoms #90 tabs ferrous sulfate 325 mg (65 mg 325 mg PO DAILY #90 tabs 11/17/23 iron) tablet fluticasone propionate 50 2 spray intranasal DAILY PRN 12/13/23 mcg/actuation nasal allergy symptoms #3 ea spray,suspension tadalafil 5 mg tablet (Cialis) 5 mg PO DAILY sexual activity #90 01/13/24 tabs atorvastatin 10 mg tablet 10 mg PO QHS #90 tabs 02/17/24 cholecalciferol (vitamin D3) 50 2,000 unit PO DAILY #90 caps 02/17/24 mcg (2,000 unit) capsule cyanocobalamin (vitamin B-12) 1,000 mcg PO DAILY #90 caps 02/17/24 1,000 mcg capsule citalopram 10 mg tablet 10 mg PO DAILY #90 tabs 03/17/24 omeprazole 20 mg capsule,delayed 20 mg PO DAILY 03/31/24 release Current Visit Medications: Current Medications Generic Name Dose Route Start Last Admin Trade Name Freq PRN Reason Stop Dose Admin Ringer's Solution 1,000 mls @ 80 mls/hr 04/19/24 06:00 IV 04/19/24 23:59 INFUSION LASHON IV Miscellaneous Supplies 1 each 04/19/24 06:00 Iv Access IV 04/19/24 23:59 DIRECTED LASHON Sodium Chloride 0 ml 04/19/24 06:00 Normal Saline Flush 10 Ml Syr IV 04/19/24 23:59 PRN PRN Sodium Chloride 0 ml 04/19/24 06:00 Normal Saline 10 Ml Vial IJ 04/19/24 23:59 DIRECTED PRN Sterile Water 0 ml 04/19/24 06:00 Water,Injection,Sterile 10 Ml Vial IJ 04/19/24 23:59 DIRECTED PRN PFSH Active Problems Active Problems: Problem Status Onset Code Obstructive sleep apnea G47.33 Chronic atrophic gastritis K29.40 GERD with esophagitis K21.00 Iron deficiency anemia D50.9 Vitamin B 12 deficiency E53.8 Mobitz type 1 second degree atrioventricular block I44.1 Mobitz type 2 second degree atrioventricular block I44.1 Major depressive disorder, recurrent F33.9 Hyperlipidemia E78.5 Osteoarthritis M19.90 Osteopenia of lumbar spine M85.88 Prediabetes R73.03 Vitamin D deficiency E55.9 Degenerative joint disease (DJD) of lumbar spine M47.816 Periodic limb movement disorder G47.61 BPH loc w urin obs/LUTS N40.1 Restless leg syndrome G25.81 Allergic rhinitis J30.9 Medical History Medical History CVA (cerebral vascular accident) (~07/2021) Surgical History Surgical History Status post right knee replacement Status post left knee replacement Hx of transurethral resection of prostate (01/22/20) Tobacco Smoking/Tobacco Use Status: Never Passive smoking exposure: No Second hand exposure: No Alcohol Alcohol Intake: current Alcohol intake frequency: a few times a week Alcohol type: beer Substance Use Substance use: Never Substance use type: does not use Vital Signs and Lab Results Vital Signs Most Recent Vital Signs in EMR: Temp Pulse Resp BP Pulse Ox 36.4 C L 56 L 14 136/81 99 04/19/24 08:42 04/19/24 08:42 04/19/24 08:42 04/19/24 08:42 04/19/24 08:42 Lab Results Blood Type / Crossmatch: No Data to Display Complete Blood Count: No Data to Display Complete Metabolic Panel: No Data to Display Liver Function Panel: No Data to Display Coagulation Panel: No Data to Display Cardiac Panel: No Data to Display Arterial Blood Gas: No Data to Display Venous Blood Gas: No Data to Display Pancreas Panel: No Data to Display Thyroid Panel: No Data to Display Infectious Disease: No Data to Display Blood Cultures: No Data to Display Toxicology Panel: No Data to Display Imaging and Studies Imaging and Studies Study information below may be from another EMR and interpreted by another provider. Please see original notes in EMR for more complete details. EKG Summary: 08/05: sinus. [place] 0.22 Anesthesia Assessment and Plan Anesthesia History Personal History: No History of Anesthesia Complications Family History: No Family History of Anesthesia Complications Exercise Tolerance Exercise Tolerance: Metabolic Equivalents>4 Pertinent Negatives Pertinent Negatives: No Symptoms of GERD and No Major Pulmonary Symptoms or Complaints Cardiac & Pulmonary Exam Cardiac Exam: Normal S1/S2 Heart Sounds (known Mobitz) Pulmonary Exam: Clear Bilateral Breath Sounds Implantable Cardiac Device Does patient have a Pacemaker or an ICD?: No Airway Exam Known Difficult Airway: No Mallampati Class: 2 Mouth Opening: Normal (> 3cm) Thyromental Distance: Greater than 3 cm Neck Range of Motion: Limited ROM Neck Circumference: Normal Teeth Condition: Normal Dentition ASA Classification ASA Score: ASA 2 Emergency Case?: No NPO Status NPO Status: NPO Clears >2 hours, Solids >8 hours Anesthesia Plan Resuscitation Status: Full Code Anesthesia Technique: General Anesthesia Airway Planned: Natural Airway Monitors Used: Standard Monitors Preoperative Comments:: 69 yo male with atrophic gastritis for EGD. Sig PMHx: 2nd degree AVB (mobitz 1, followed by [facility] [place]), CVA (unremarkable neck CTA), SHAUNA, preDM. never smoker. Previous Anes: - EGD/colo, prop, natural airway, no issues. - EGD, prop <230>, topical lido, no issues. - TURP, spinal, 1.6 mL heavy, prop/dex sedation
[2024-04-19 08:42] VITALS: BP 136/81; PULSE 56; RESP 14; TEMP 36.4; O2SAT 99
[2024-04-19] MEDS: Lactated Ringers 1,000 ML 80 ML IV (08:47)
[2024-04-19 09:08] VITALS: BMI 24.5
--- NOTE | 2024-04-19 09:21 | STOM_PTH ---
PATIENT: Denis Loomis III LOC: [facility] U#:[id number] AGE/SX: 69/M ROOM: RE04/19/[address]: Ramesh Rubalcava MD : 1955 BED: DIS: 04/19/2024 SPEC #: [id number] RECD: 04/19/24 12:56 STATUS: GALEN RE #: [id number] HERIBERTO: 04/19/24 09:[address]: Ramesh Rubalcava DEPT: Surgical Specimen RECD BY: Debbie Tavera ENTERED: 04/19/24 12:57 SP TYPE: STOMACH OTHR DR: Ginger Mejía, [facility] Tissues: 1 - STOMACH BIOPSY 2 - STOMACH BIOPSY 3 - STOMACH BIOPSY 4 - STOMACH BIOPSY 5 - STOMACH BIOPSY Procedures: GROSS AND MICRO LEVEL 4 Comments: [id number]
--- NOTE | 2024-04-19 09:41 | W.ANESPOSTOP ---
Postoperative Evaluation Date, Time and Location Date Performed: 04/19/24 Time Performed: 09:41 Patient Location: Day Surgery Unit Vital Signs Most Recent Imported Vital Signs: Most Recent Vital Signs Temp Pulse Resp BP Pulse Ox 36.4 C L 65 16 119/76 97 04/19/24 09:31 04/19/24 09:31 04/19/24 09:31 04/19/24 09:31 04/19/24 09:31 Pain Score Most Recent Pain Score: Most Recent Pain Score Pain Level 0 04/19/24 09:31 Assessment Mental Status: Awake (Alert & Oriented to Patient Baseline) Airway and Respiratory Function: Patent airway with normal (patient baseline) respiratory exam Cardiovascular Function: Hemodynamically Stable Hydration Status: Adequately Hydrated Nausea & Vomiting: No Nausea or Vomiting Pain: Pt. Denies Any Pain Peripheral Nerve Block: Patient did not receive a nerve block
[2024-04-19 10:00] VITALS: BP 117/83; BP 119/76; PULSE 60; PULSE 65; RESP 16; TEMP 36.1; TEMP 36.4; O2SAT 97
== END 2024-04-19 10:15 | disposition home or self-care (01) ==
LOC: SUR 08:27
PROVIDERS: PCP Nurse Practitioner Family; Visit Provider Surgery
PROC: 0DJ68ZZ Inspection of Stomach, Via Natural or Artificial Opening Endoscopic (ICD-10-PCS; CPT 43235; principal; 2024-04-19 09:45)
DX: K29.40 Chronic atrophic gastritis without bleeding (principal); G47.33 Obstructive sleep apnea (adult) (pediatric); I44.1 Atrioventricular block, second degree
CPT/HCPCS: 43239; 88305; J2001; J2704

== ENCOUNTER 2024-07-27 02:25 | Outpatient (CLI) | payer MEDICARE, SELFPAY ==
--- NOTE | 2024-07-27 09:45 | DI.DEXA_ITS ---
Exam(s) XR DEXA BONE DENSITY W/WO ARTUR EXAM: XR DEXA BONE DENSITY W/WO ARTUR CLINICAL HISTORY: f/u osteopenia,m85.88 TECHNIQUE: HoloSpootr C densitometer analysis of left hip, lumbar spine and left forearm. Lat eral survey image of the thoracic and lumbar spine. COMPARISON: DX DEXA BONE DENSITY WITH ARTUR from 04/14/2016 CR XR DEXA BONE DENSITY W/WO ARTUR from 07/24/2021 MR MR LUMBAR SPINE WO from 06/18/2022 FINDINGS: Lateral view of the thoracic and lumbar spine shows no evidence of compression fractures. Bone mineral density measurements of the lumbar spine correspond to a total T-score of -2.8, in the o steoporotic range. This represents a 6.5 percent decrease compared to 2020 and a 13.6 percent decrea se when compared to 2015. Bone mineral density measurements of the left hip correspond to a total T-score of -1.3. This is no t significantly changed from the prior exams.. The femoral neck T-score is -1.8, in the osteopenic range.. Theleft forearm bone mineral density measurements correspond to a T-score of the distal 3rd of -1.1, in the osteopenic range. This is not significantly changed from the prior exams.. IMPRESSION: Osteoporosis of the lumbar spine. At stable osteopenia of the left hip and forearm.
== END 2024-07-27 02:45 ==
LOC: DI 02:25
PROVIDERS: PCP Nurse Practitioner Family; Visit Provider Nurse Practitioner Family
DX: M81.0 Age-related osteoporosis without current pathological fracture (principal)
CPT/HCPCS: 77080

== ENCOUNTER 2024-10-04 02:44 | Outpatient (CLI) | payer MEDICARE, SELFPAY ==
[2024-10-04 09:37] LABS: Abs Immature Grans 0.01 10^3/uL (0.0-0.06); Absolute Basophil Count 0.05 10^3/uL (0.0-0.2); Absolute Eosinophil Count 0.12 10^3/uL (0.0-0.7); Absolute Lymphocyte Count 0.56 10^3/uL (1.2-3.4); Absolute Monocyte Count 0.46 10^3/uL (0.1-0.8); Absolute Neutrophil Count 3.91 10^3/uL (1.2-6.7); Eosinophils % 2.3 %; HCT 44.9 % (40.0-50.0); HGB 14.9 g/dL (13.5-17.5); Immature Grans % 0.2 %; MCH 29.9 pg (27.0-33.0); MCHC 33.2 % (32.0-36.0); MCV 90 fL (80-95); Neutrophils % 76.5 %; Platelet Count 196 10^3/uL (130-400); RBC 4.99 10^6/uL (4.36-5.78); RDW 11.9 % (11.8-14.1); WBC 5.11 10^3/uL (4.4-10.8)
[2024-10-04 11:10] LABS: ALT 25 U/L (16-63); AST 23 U/L (15-37); Albumin 3.4 g/dL (3.4-5.0); Alkaline Phosphatase 92 U/L (46-116); Anion Gap 8.1 mmol/L (3-11); BUN 13 mg/dL (7-18); Bilirubin, Total 0.96 mg/dL (0.2-1.0); CO2 27.9 mmol/L (21.0-32.0); CREATININE 0.9 mg/dL (0.70-1.30); Calculated LDL 73 mg/dL (<100); Chloride 103 mmol/L (98-107); Cholesterol 130 mg/dL (<200); Estimated GFR 91.31 (mL/min/1.73m2); Ferritin 85 ng/mL (26-388); Glucose 114 mg/dL (74-106); HDL Cholesterol 45 mg/dL (40-60); PHOSPHORUS 3.3 mg/dL (2.6-4.7); Potassium 4.2 mmol/L (3.5-5.1); Sodium 139 mmol/L (136-145); TSH (W/Ref FT4) 3.63 uIU/mL (0.36-3.74); Total Protein 7.4 g/dL (6.4-8.2); Triglyceride 60 mg/dL (<150); Vitamin B12 530 pg/mL (193-986); Vitamin D 25 Total 36.2 ng/mL (30-100)
[2024-10-04 18:25] LABS: PSA, Screening 0.8 ng/mL (<=6.5)
[2024-10-04 18:30] LABS: Parathyroid Hormone,Intact 39.4 pg/mL (19.0-88.0)
[2024-10-04 18:44] LABS: HIV-1/2 Ag & Ab Screen Negative (Negative)
[2024-10-04 19:57] LABS: HBs Antibody, Quant 7.3 mIU/mL (See Note); Hep B Surface Ab Negative (See Note); Hepatitis B Core Antibody Negative (Negative); Hepatitis B Surface Antigen Negative (Negative)
[2024-10-07 11:51] LABS: Testosterone, Total 527 ng/dL (240-950)
== END 2024-10-04 02:45 | disposition home or self-care (01) ==
LOC: LBO 02:45
PROVIDERS: PCP Nurse Practitioner Family; Visit Provider Nurse Practitioner Family
DX: K29.40 Chronic atrophic gastritis without bleeding (principal); K21.00 Gastro-esophageal reflux disease with esophagitis, without bleeding; D50.9 Iron deficiency anemia, unspecified; E53.8 Deficiency of other specified B group vitamins; M81.0 Age-related osteoporosis without current pathological fracture; Z12.5 Encounter for screening for malignant neoplasm of prostate; I63.9 Cerebral infarction, unspecified; Z86.73 Personal history of transient ischemic attack (TIA), and cerebral infarction without residual deficits; E55.9 Vitamin D deficiency, unspecified; R53.83 Other fatigue; Z11.4 Encounter for screening for human immunodeficiency virus [HIV]; Z11.59 Encounter for screening for other viral diseases
CPT/HCPCS: 36415; 80053; 80061; 82306; 84153; 84403; 86704; 86706; 87340; 87389; 82607; 82728; 83970; 84100; 84443; 85025

== ENCOUNTER → 2024-12-28 09:54 | Outpatient (BNVA) | payer MEDICARE, SELFPAY | PROVIDERS: PCP Nurse Practitioner Family; Referring Provider Nurse Practitioner Family; Visit Provider Urology | DX: R39.11 Hesitancy of micturition (principal); N40.1 Benign prostatic hyperplasia with lower urinary tract symptoms | CPT/HCPCS: 99213 ==

== ENCOUNTER 2025-01-07 12:31 | Emergency (ER) | payer MEDICARE, SELFPAY ==
[2025-01-07 12:39] VITALS: BP 137/80; PULSE 66; RESP 16; TEMP 37; O2SAT 97
[2025-01-07] MEDS: Lidocaine 2% Multi-Dose 20 ML VIAL (13:21)
--- NOTE | 2025-01-07 13:26 | NUR.NOTE ---
Nursing Note: 5 sutures to left middle finger by Dr. Oneill, dressing applied.
--- NOTE | 2025-01-07 13:33 | ED.GENADUL_ITS ---
Discharge Plan Disposition Patient Disposition: Home Condition: Stable Discharge Details Clinical Impression: Laceration of finger Primary Care Provider: Ginger Mejía ED Provider: Nithya Clark Home Meds and New Rx's Prescriptions: No Action naproxen sodium 220 mg capsule 220 mg PO BID PRN calcium carbonate [Calcium 600] 600 mg calcium (1,500 mg) tablet 600 mg PO DAILY loratadine 10 mg tablet 10 mg PO DAILY PRN (Reason: allergy symptoms) Qty: 90 3RF psyllium husk 0.52 GM capsule 0.52 gm PO DAILY fluticasone propionate 50 mcg/actuation spray,suspension 2 spray TYREL DAILY PRN (Reason: allergy symptoms) Qty: 3 3RF tadalafil [Cialis] 5 mg tablet 5 mg PO DAILY Qty: 90 4RF Rx Instructions: take daily for urinary stream lorazepam 0.5 mg tablet 0.5 mg PO ONCE PRN (Reason: flight phobia) Qty: 10 0RF Rx Instructions: Take 15-30min before boarding flight if needed for anxiety. No alcohol with this cyanocobalamin (vitamin B-12) 1,000 mcg capsule 1,000 mcg PO DAILY Qty: 90 3RF atorvastatin 10 mg tablet 10 mg PO QHS Qty: 90 3RF citalopram 10 mg tablet 10 mg PO DAILY Qty: 90 3RF cholecalciferol (vitamin D3) 50 mcg (2,000 unit) capsule 2,000 unit PO DAILY Qty: 90 3RF Rx Instructions: Take 1 daily ferrous sulfate 325 mg (65 mg iron) tablet 325 mg PO DAILY Qty: 90 3RF Rx Instructions: Take 1 tablet daily aspirin 81 mg tablet,chewable 81 mg PO DAILY Qty: 30 0RF Discharge Instructions Instructions: Laceration Repair With Stitches ED Additional Instructions: He was seen in the emergency department today for evaluation of a laceration on your finger. In our department you do full physical examination performed, had stitches placed and your ring was cut off. You need to have the stitches removed in approximately 10 days, and this can be done at our department or your primary care doctors. Please continue wound care with [id number] antibiotic ointment, dressings, and use the finger splint to prevent accidentally dislodging your stitches. Please follow-up with your primary care provider in the next few days to discuss this visit and any symptoms that change, worsen, or persist. Thank you for allowing us to be part of your care. Discharge Data Discharge Date/Time-TO BE ENTERED AT DEPARTURE: 01/07/25 13:58 HPI General Mode of arrival: ambulatory . Date/Time Provider Initiated Documentation: 01/07/25 12:52 . Limitations to Documentation: no limitations . Information obtained by: patient and old records reviewed . HPI Narrative: HPI: This is a 69-year-old male patient with a past medical history significant for SHAUNA, CVA, hyperlipidemia, presenting for evaluation of a finger laceration. Patient reports that he was moving cementless requiring quick mention sustained a laceration to the palmar aspect of his left fourth finger just over the PIP joint. This is an isolated injury and the patient was in his normal state of health prior to this event. Last tetanus 2021, patient states that he did not note any potential for foreign bodies, is not experiencing any numbness or tingling distal to the injury, and has been able to range his finger without difficulty Exam: Gen: Awake and alert, in no apparent distress HEENT: Non-icteric sclera Neck: Supple Lungs: No apparent respiratory distress, normal respiratory effort. CV: Appears well perfused Abdomen: Non-distended MSK: Moves 4 extremities without apparent limitation in ROM, full strength and sensation of the affected left fourth digit without weakness. 1 cm laceration appreciated over the palmar aspect of the PIP joint as noted above. Skin: Visualized skin without rashes, cyanosis. Neuro: Normal Gait, no obvious focal deficits or facial asymmetry. Speaks in full, clear sentences. Psych: Appropriate for situation. MDM: This is a 69-year-old male patient presenting for evaluation of an isolated laceration to the finger. Differential includes but is not limited to laceration, low concern for foreign body, and none evident during extensive bleeding at bedside. Mechanism less concerning for fracture or dislocation, patient without physical examination evidence concerning for tendon disruption and no evidence of disruption of deep structures on my wound exploration. ED Course: The patient's wedding ring was unable to be removed, and he does endorse a history of osteoarthritis that has made it difficult to remove his ring at baseline. The ring was cut off, and the laceration was anesthetized locally and sutures placed as noted below. Patient tolerated this procedure to good effect. I did provide the patient with a finger splint to prevent unnecessary strain on the sutures, and at this time, the patient has had a full medical evaluation and is safe for discharge to home. They are hemodynamically stable, ambulatory, and tolerating PO. They are understanding of the follow-up plan and return precautions. They left our facility without incident. Nithya Clark MD Related Data Home Medications ?Medication ?Instructions ?Recorded ?Confirmed psyllium husk 0.52 gram capsule 0.52 gm PO DAILY 05/28/17 01/07/25 naproxen sodium 220 mg capsule 220 mg PO BID PRN 04/19/19 01/07/25 aspirin 81 mg chewable tablet 81 mg PO DAILY #30 tabs 08/14/21 01/07/25 calcium carbonate (Calcium 600) 600 mg PO DAILY 02/24/23 01/07/25 loratadine 10 mg tablet 10 mg PO DAILY PRN allergy 03/04/23 01/07/25 symptoms #90 tabs fluticasone propionate 50 2 spray intranasal DAILY PRN 12/13/23 01/07/25 mcg/actuation nasal allergy symptoms #3 ea spray,suspension tadalafil 5 mg tablet (Cialis) 5 mg PO DAILY sexual activity #90 01/13/24 01/07/25 tabs lorazepam 0.5 mg tablet 0.5 mg PO ONCE PRN flight phobia 09/26/24 01/07/25 #10 tabs atorvastatin 10 mg tablet 10 mg PO QHS #90 tabs 12/25/24 01/07/25 cholecalciferol (vitamin D3) 50 2,000 unit PO DAILY #90 caps 12/25/24 01/07/25 mcg (2,000 unit) capsule citalopram 10 mg tablet 10 mg PO DAILY #90 tabs 12/25/24 01/07/25 cyanocobalamin (vitamin B-12) 1,000 mcg PO DAILY #90 caps 12/25/24 01/07/25 1,000 mcg capsule ferrous sulfate 325 mg (65 mg 325 mg PO DAILY #90 tabs 12/25/24 01/07/25 iron) tablet Previous Rx's ?Medication ?Instructions ?Recorded aspirin 81 mg chewable tablet 81 mg PO DAILY #30 tabs 08/14/21 loratadine 10 mg tablet 10 mg PO DAILY PRN allergy 03/04/23 symptoms #90 tabs fluticasone propionate 50 2 spray intranasal DAILY PRN 12/13/23 mcg/actuation nasal allergy symptoms #3 ea spray,suspension tadalafil 5 mg tablet (Cialis) 5 mg PO DAILY sexual activity #90 01/13/24 tabs lorazepam 0.5 mg tablet 0.5 mg PO ONCE PRN flight phobia 09/26/24 #10 tabs atorvastatin 10 mg tablet 10 mg PO QHS #90 tabs 12/25/24 cholecalciferol (vitamin D3) 50 2,000 unit PO DAILY #90 caps 12/25/24 mcg (2,000 unit) capsule citalopram 10 mg tablet 10 mg PO DAILY #90 tabs 12/25/24 cyanocobalamin (vitamin B-12) 1,000 mcg PO DAILY #90 caps 12/25/24 1,000 mcg capsule ferrous sulfate 325 mg (65 mg 325 mg PO DAILY #90 tabs 12/25/24 iron) tablet Allergies Allergy/AdvReac Type Severity Reaction Status Date / Time tamsulosin HCl (From Flomax) AdvReac Severe LETHARGIC Verified 01/07/25 12:44 lactose AdvReac Unknown INTOLERANT Verified 01/07/25 12:44 finasteride AdvReac Intermediate Other (See Uncoded 01/07/25 12:44 Comment) General Stated Complaint: Laceration JESSE: 3 Course Vital Signs Vital signs: Vital Signs Temperature 37.0 C 01/07/25 12:39 Pulse 66 01/07/25 12:39 Respiratory Rate 16 01/07/25 12:39 Blood Pressure 137/80 01/07/25 12:39 Pulse Oximetry 97 01/07/25 12:39 Temperature 37.0 C 01/07/25 12:39 Temperature Source Oral 01/07/25 12:39 Pulse 66 01/07/25 12:39 Respiratory Rate 16 01/07/25 12:39 Blood Pressure 137/80 01/07/25 12:39 Pulse Oximetry 97 01/07/25 12:39 Oxygen Delivery Method Room Air 01/07/25 12:39 Oxygen Flow Rate 0 01/07/25 12:39 Pain Level 1 01/07/25 12:49 Procedure Laceration Laceration 1: Date of Procedure: 01/07/25 Time of procedure: 12:39 Provider that performed the procedure: Nithya Clark Standard Time Out Performed: No Patient Consented: Verbally Site: hand Side (If applicable): left Description: linear Depth: simple, single layer Local anesthetic: Lidocaine 2% Amount of anesthesia used (mL): 1 Pre-repair:: wound explored, irrigated extensively and deep structures intact Skin layer closed with: nylon Suture size: 5-0 Number of sutures:: 5 Technique: simple, interrupted Complications: None Medical Decision Making Quality:SDOH Health Related Social Needs: No Data to Display PFSH All Active Problems (Updated 01/07/25 @ 13:34 by Nithya Clark MD) Laceration of finger (Acute) History of stroke (Chronic) CVA in 2020 Obstructive sleep apnea (Chronic) PSG September 2017; uses oral appliance 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 EGD 2019 with gastritis Mobitz type 1 second degree atrioventricular block (Chronic) Mobitz type 2 second degree atrioventricular block (Chronic) Major depressive disorder, recurrent (Chronic) Hyperlipidemia (Chronic) Osteoarthritis (Chronic) Osteoporosis (Chronic) Dexa 2023 Vitamin D deficiency (Chronic) Degenerative joint disease (DJD) of lumbar spine (Chronic) Periodic limb movement disorder (Chronic) BPH loc w urin obs/LUTS (Chronic) Status/post TURP. Recurrent obstructive sx. Restless leg syndrome (Chronic) Allergic rhinitis (Chronic) Medical History Vitamin B 12 deficiency Iron deficiency anemia CVA (cerebral vascular accident) (~07/2021) Surgical History History of esophagogastroduodenoscopy (04/18/24) Status post right knee replacement Status post left knee replacement Hx of transurethral resection of prostate (01/22/20) Family History Mother , age 92 Atrial fibrillation Hypertension Father , age 89 Parkinson disease Hypertension Dementia Sister Depression Dementia Sister Atrial fibrillation Sister Hemochromatosis Brother Melanoma Hypertension Brother Hemochromatosis Daughter Depression Daughter No problems noted. Maternal Grandfather Heart disease Maternal Grandmother Colon cancer Paternal Grandfather No problems noted. Paternal Grandmother No problems noted. Social History Smoking/Tobacco Use Status: Never Second Hand Exposure: No Smoking risk assessment performed?: Yes Alcohol Intake: current Alcohol Intake frequency: a few times a week Alcohol type: beer Drug use: Never Substance use type: does not use Caregiver/Support person: No Household members: spouse Housing: house Number of Children: 2 Communication Needs: None Do you need help understanding health information?: Never current occupation: Retired Pets and animals: Yes Pets and animals: cat(s) Sexually active: Yes Do you think of yourself as: straight/heterosexual Current gender identity: male What is your relationship status?: How often do you talk on the phone with friends or family?: three or more times per week How often do you get together with friends or relatives?: once per week Do you belong to any clubs or organized social groups?: yes Panel score (0-1 are the most socially isolated patients): 3 NHANES result reviewed/action taken: Yes What type of physical activity do you participate in: walking, bicycling and other Details: Yard Work,Farming Duration: 15-30 minutes/day Frequency: 5-6 times per week Christin/Mandaen: No preference Seatbelt use: always Helmet use: Yes Helmet use: always Drive 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
== END 2025-01-07 13:58 | disposition home or self-care (01) ==
PROVIDERS: Emergency Provider Emergency Medicine; PCP Nurse Practitioner Family
DX: S61.215A Laceration without foreign body of left ring finger without damage to nail, initial encounter (principal); W23.2XXA Caught, crushed, jammed or pinched between a moving and stationary object, initial encounter
CPT/HCPCS: 12001; J2003

== ENCOUNTER 2025-03-05 03:25 | Outpatient (CLI) | payer MEDICARE, SELFPAY ==
[2025-03-05 08:52] LABS: Anion Gap 4.5 mmol/L (3-11); BUN 12 mg/dL (7-18); CO2 31.5 mmol/L (21.0-32.0); CREATININE 0.9 mg/dL (0.70-1.30); Calcium 8.8 mg/dL (8.5-10.1); Chloride 105 mmol/L (98-107); Estimated GFR 90.74 (mL/min/1.73m2); Glucose 95 mg/dL (74-106); Sodium 141 mmol/L (136-145); Vitamin D 25 Total 39 ng/mL (30-100)
[2025-03-05 18:20] LABS: Parathyroid Hormone,Intact 43 pg/mL (19-88)
[2025-03-06 13:40] LABS: IgA 273 mg/dL (85-499); Interpretation (See Note); Tissue Transglutaminase IgA <4.0 CU (<20.0)
[2025-03-06 13:58] LABS: Albumin g/dL 3.9 g/dL (3.6-5.2); Total Protein 6.6 g/dL (6.3-8.2)
[2025-03-06 15:14] LABS: Albumin, Urine mg/dL 1 mg/dL; Globulins, Urine mg/dL 5 mg/dL; Immunotyping, Urine (See Note); Total Protein Urine 6 mg/dL (See Note)
== END 2025-03-05 03:26 | disposition home or self-care (01) ==
PROVIDERS: PCP Nurse Practitioner Family; Visit Provider Internal Medicine
DX: M81.0 Age-related osteoporosis without current pathological fracture (principal)
CPT/HCPCS: 36415; 80048; 82306; 82784; 83516; 84156; 84166; 86335; 83970; 84165; 84439; 84443

== ENCOUNTER 2025-03-07 03:33 | Outpatient (CLI) | payer MEDICARE, SELFPAY ==
[2025-03-07 13:22] LABS: FREE T4 0.94 ng/dL (0.76-1.46); TSH 3.32 uIU/mL (0.36-3.74)
== END 2025-03-07 03:34 | disposition home or self-care (01) ==
PROVIDERS: PCP Nurse Practitioner Family; Visit Provider Internal Medicine
DX: M81.8 Other osteoporosis without current pathological fracture (principal); M81.0 Age-related osteoporosis without current pathological fracture
CPT/HCPCS: 36415; 84439; 84443

== ENCOUNTER 2025-03-08 16:10 | Outpatient (REF) | payer MEDICARE, SELFPAY ==
[2025-03-08 17:32] LABS: Creatinine,Urine 63.24 mg/dL
[2025-03-08 17:39] LABS: Creatinine,24hr Ur 1.52 g/24hr (0.95-2.49); Total Volume 2400 ml
[2025-03-10 09:03] LABS: Calcium Urine 8.1 mg/dL (See Note); Calcium Urine 24 hr 194 mg/24hr (100-300); Timed Urine Volume 2400 mL
== END 2025-03-08 16:11 | disposition home or self-care (01) ==
LOC: LBN 16:10
PROVIDERS: PCP Nurse Practitioner Family; Visit Provider Internal Medicine
DX: M81.0 Age-related osteoporosis without current pathological fracture (principal)
CPT/HCPCS: 81050; 82340; 82570

== ENCOUNTER → 2025-05-03 11:04 | Outpatient (BNVA) | payer MEDICARE, SELFPAY | PROVIDERS: PCP Nurse Practitioner Family; Referring Provider Nurse Practitioner Family; Visit Provider Surgery | DX: K29.40 Chronic atrophic gastritis without bleeding (principal) | CPT/HCPCS: 99213 ==

== ENCOUNTER 2025-06-12 09:38 | Day surgery (SDC) | payer MEDICARE, SELFPAY ==
--- NOTE | 2025-06-11 13:23 | W.PREOPHP ---
Assessment and Plan Assessment and plan (1) Chronic atrophic gastritis: Status: Chronic Assessment and plan: We reviewed the plan for an EGD with repeat biopsies and surveillance today. I know has a good understanding of this from his previous procedures. He had the chance to ask any other questions, and we can proceed with the EGD as planned. History of Present Illness History of Present Illness Chief Complaint: Atrophic gastritis Narrative: Denis is 70 years old, he carries a diagnosis of autoimmune atrophic gastritis. He has been undergoing surveillance EGD with biopsies, it has been 1 year since his last procedure. He needs another surveillance EGD. There have been no major changes with regards to the interval history. 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 EGD 2019 with gastritis Hyperlipidemia (Chronic) BPH loc w urin obs/LUTS (Chronic) Status/post TURP. Recurrent obstructive sx. Allergic rhinitis (Chronic) Restless leg syndrome (Chronic) Medical History Vitamin B 12 deficiency Iron deficiency anemia CVA (cerebral vascular accident) (~07/2021) Per pt. stated he followed up with neurology and was discharged from their service. Pt. states he has no residual deficits. Surgical History History of esophagogastroduodenoscopy (04/18/24) Status post right knee replacement Status post left knee replacement Hx of transurethral resection of prostate (01/22/20) Family History Mother , age 92 Atrial fibrillation Hypertension Father , age 89 Parkinson disease Hypertension Dementia Sister Depression Dementia Sister Atrial fibrillation Sister Hemochromatosis Brother Melanoma Hypertension Brother Hemochromatosis Daughter Depression Daughter No problems noted. Maternal Grandfather Heart disease Maternal Grandmother Colon cancer Paternal Grandfather No problems noted. Paternal Grandmother No problems noted. Social History Smoking/Tobacco Use Status: Never Second Hand Exposure: No Smoking risk assessment performed?: Yes Alcohol Intake: current Alcohol Intake frequency: a few times a week Alcohol type: beer Drug use: Never Substance use type: does not use Caregiver/Support person: No Household members: spouse Housing: house Number of Children: 2 Communication Needs: None Do you need help understanding health information?: Never current occupation: Retired Pets and animals: Yes Pets and animals: cat(s) Sexually active: Yes Do you think of yourself as: straight/heterosexual Current gender identity: male What is your relationship status?: How often do you talk on the phone with friends or family?: three or more times per week How often do you get together with friends or relatives?: once per week Do you belong to any clubs or organized social groups?: yes Panel score (0-1 are the most socially isolated patients): 3 NHANES result reviewed/action taken: Yes What type of physical activity do you participate in: walking, bicycling and other Details: Yard Work,Farming Duration: 15-30 minutes/day Frequency: 5-6 times per week Christin/Cheondoism: No preference Seatbelt use: always Helmet use: Yes Helmet use: always 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 Do you feel safe at home: Yes Do you feel safe in your relationship?: Yes Meds Allergies and Home Medications Allergies Allergy/AdvReac Type Severity Reaction Status Date / Time tamsulosin HCl (From Flomax) AdvReac Severe LETHARGIC Verified 06/12/25 10:02 lactose AdvReac Unknown INTOLERANT Verified 06/12/25 10:02 finasteride AdvReac Intermediate Other (See Uncoded 06/12/25 10:02 Comment) Home Medications ?Medication ?Instructions ?Recorded ?Confirmed ?Type psyllium husk 0.52 gram capsule 0.52 gm PO DAILY 05/28/17 06/11/25 History naproxen sodium 220 mg capsule 220 mg PO BID PRN 04/19/19 06/11/25 History aspirin 81 mg chewable tablet 81 mg PO DAILY #30 tabs 08/14/21 06/11/25 Rx calcium carbonate (Calcium 600) 600 mg PO DAILY 02/24/23 06/11/25 History fluticasone propionate 50 2 spray intranasal DAILY PRN 12/13/23 06/12/25 Rx mcg/actuation nasal allergy symptoms #3 ea spray,suspension lorazepam 0.5 mg tablet 0.5 mg PO ONCE PRN flight phobia 09/26/24 06/11/25 Rx #10 tabs atorvastatin 10 mg tablet 10 mg PO QHS #90 tabs 12/25/24 06/12/25 Rx cholecalciferol (vitamin D3) 50 2,000 unit PO DAILY #90 caps 12/25/24 06/11/25 Rx mcg (2,000 unit) capsule citalopram 10 mg tablet 10 mg PO DAILY #90 tabs 12/25/24 06/12/25 Rx ferrous sulfate 325 mg (65 mg 325 mg PO DAILY #90 tabs 12/25/24 06/11/25 Rx iron) tablet tadalafil 5 mg tablet (Cialis) 5 mg PO DAILY sexual activity #90 02/02/25 06/11/25 Rx tabs cyanocobalamin (vitamin B-12) 1,000 mcg PO DAILY #90 caps 03/05/25 06/11/25 Rx 1,000 mcg capsule loratadine 10 mg tablet 10 mg PO DAILY PRN allergy 03/13/25 06/12/25 Rx symptoms #90 tabs Exam Const General: cooperative, healthy appearing and not in acute distress Neck Neck: normal visual inspection, no lymphadenopathy and supple Resp Effort & Inspection: normal respiratory effort Auscultation: clear to auscultation bilaterally Cardio Jugular venous pressure: no JVD Rate: regular rate Rhythm: regular rhythm Heart Sounds: S1 normal and S2 normal GI Inspection: normal to inspection Palpation: soft, no guarding, no hernias and nontender Percussion: normal to percussion Auscultation: normal bowel sounds Neuro General: patient alert, patient awake and patient oriented x3 Psych Appearance: grossly normal
--- NOTE | 2025-06-11 13:24 | W.PM.ENDDOP ---
Date of service: 06/12/25 Time of Service: Endoscopy Report DATE OF PROCEDURE: 06/12/25 PRE-OP DIAGNOSIS: Autoimmune atrophic gastritis POST-OP DIAGNOSIS: same PROCEDURE: EGD with biopsies SURGEON: Ramesh Rubalcava ANESTHESIA TYPE: General:No Airway ESTIMATED BLOOD LOSS: 10 PATHOLOGY: other (Biopsies of gastric mucosa from prepyloric region zones 1 and 2, antral regions of and 3, 3 antral zone 4, and zone 5) COMPLICATIONS: None DISPOSITION: same day INDICATIONS: Denis is a 70-year-old male who needs surveillance EGD for autoimmune atrophic gastritis PROCEDURE START TIME: : PROCEDURE END TIME: FINDINGS: Gastric mucosa that appeared consistent with previous EGDs. Regular appearing Z-line at 38 cm PROCEDURE DESCRIPTION: After the initiation of monitored anesthetic care, and with the assistance of a bite block, I advanced a standard gastroscope through the mouth past the hypopharynx and into the esophagus.? Under the direct vision of the scope, I advanced down the esophagus towards the stomach.? The upper, mid, and lower esophagus were all normal and healthy appearing. The Z-line was regular and the GE junction measured rate at 38 cm beyond the incisors. I could pass down into the stomach with ease. Stomach was insufflated into the rugae were obliterated, and irrigated clear. There were no signs of any active inflammation or ulceration. Clinical features both by regular white light, as well as narrowband imaging seem consistent with Denis's previous EGDs. Next, I went about the process of biopsying the standard zones. Started in the prepyloric region, along the lesser curvature at zone 1. Biopsies were performed with cold forceps with minimal bleeding. Zone 2 was biopsied along the anterior and posterior wall, and the antral region distal to the incisura angularis was biopsied at zone 3. Next, I brought the camera up into the main body of the stomach, above the incisure angularis. The lesser curvature was biopsied at zone 4, and then bilateral biopsies were performed on the anterior and posterior mancia of zone 5. All of these biopsies were performed with cold forceps with minimal bleeding. Tolerated this all fine. The stomach was then emptied, the camera was brought back out along the length of the esophagus 1 last time. Denis was allowed to awaken from the anesthetic, and transferred to the recovery unit
--- NOTE | 2025-06-11 13:25 | W.PM.DSUDISC ---
Date of service: 06/12/25 Discharge Plan Disposition Patient Disposition: Home Condition: Good Discharge Details Reason For Visit: EGD Attending Provider: Ramesh Rubalcava Primary Care Provider: Ginger Mejía Home Meds and New Rx's Prescriptions: Continued naproxen sodium 220 mg capsule 220 mg PO BID PRN calcium carbonate [Calcium 600] 600 mg calcium (1,500 mg) tablet 600 mg PO DAILY psyllium husk 0.52 GM capsule 0.52 gm PO DAILY fluticasone propionate 50 mcg/actuation spray,suspension 2 spray TYREL DAILY PRN (Reason: allergy symptoms) Qty: 3 3RF lorazepam 0.5 mg tablet 0.5 mg PO ONCE PRN (Reason: flight phobia) Qty: 10 0RF Rx Instructions: Take 15-30min before boarding flight if needed for anxiety. No alcohol with this atorvastatin 10 mg tablet 10 mg PO QHS Qty: 90 3RF citalopram 10 mg tablet 10 mg PO DAILY Qty: 90 3RF cholecalciferol (vitamin D3) 50 mcg (2,000 unit) capsule 2,000 unit PO DAILY Qty: 90 3RF Rx Instructions: Take 1 daily ferrous sulfate 325 mg (65 mg iron) tablet 325 mg PO DAILY Qty: 90 3RF Rx Instructions: Take 1 tablet daily tadalafil [Cialis] 5 mg tablet 5 mg PO DAILY Qty: 90 4RF Rx Instructions: take daily for urinary stream cyanocobalamin (vitamin B-12) 1,000 mcg capsule 1,000 mcg PO DAILY Qty: 90 3RF loratadine 10 mg tablet 10 mg PO DAILY PRN (Reason: allergy symptoms) Qty: 90 3RF aspirin 81 mg tablet,chewable 81 mg PO DAILY Qty: 30 0RF Discharge Instructions Additional Instructions: Denis, was very nice to see you today, I hope you feel well after the procedure. Similar to your previous endoscopies, the mucosa or lining of the stomach really looks about the same to me. As we have done in the past, however, I performed multiple biopsies in designated zones to reassess the extent of your atrophic gastritis. Everything went very smoothly. And similar to prior procedures, my office will be in touch once we have the results of the biopsies. If you need anything, or have any questions at all, please do not hesitate to ask at any time. 1. If tolerated, consume a soft, low fiber diet for 1-2 days[address] not drive, drink alcohol, operate machinery, make critical decisions, or do activities that require coordination or balance for 24 hours. 3. You may experience a sore throat for 24 to 48 hours. You may use throat lozenges or gargle with warm salt water to relieve the discomfort. 4. Because air was put into your stomach during the procedure, you may experience some belching. 5. Go directly to the emergency room if you notice any of the following: Develop chills (warm to touch), or if you have a thermometer and your temperature is above 101 Difficulty breathing or difficultly swallowing Persistent vomiting Severe abdominal pain, other than gas cramps Severe chest pain Black, tarry stools Any bleeding ? exceeding one tablespoon 6. Call your physician if the site where your intravenous was started becomes red, swollen, painful, and warm to touch. 7. Your physician has reviewed your pre-procedure medications. Please continue to take those medications as previously ordered. You will be given specific information/education regarding any changes to your medications before leaving. Activity:: Activity as Tolerated Diet:: As Tolerated DS: Diagnosis Discharge Diagnosis (1) Chronic atrophic gastritis: Status: Chronic Asessment and Plan: Follow-up on biopsy results
[2025-06-12 10:03] VITALS: BP 120/85; PULSE 60; RESP 16; TEMP 36.2; O2SAT 100
[2025-06-12] MEDS: Lactated Ringers 1,000 ML 80 ML IV (10:13)
--- NOTE | 2025-06-12 11:10 | W.ANESPRE ---
General Info Date of Service Date Performed: 06/12/25 Height: 5 ft 10 in Weight: 77.4 kg Body Mass Index (BMI): 24.5 Surgical Procedure: Operation Date: 06/12/25 11:05 Proposed Procedure Side Surgeon p Gastroscopy Ramesh Rubalcava MD Meds Allergies and Home Medications Allergies Allergy/AdvReac Type Severity Reaction Status Date / Time tamsulosin HCl (From Flomax) AdvReac Severe LETHARGIC Verified 06/12/25 10:02 lactose AdvReac Unknown INTOLERANT Verified 06/12/25 10:02 finasteride AdvReac Intermediate Other (See Uncoded 06/12/25 10:02 Comment) Home Medication ?Medication ?Instructions ?Recorded psyllium husk 0.52 gram capsule 0.52 gm PO DAILY 05/28/17 naproxen sodium 220 mg capsule 220 mg PO BID PRN 04/19/19 aspirin 81 mg chewable tablet 81 mg PO DAILY #30 tabs 08/14/21 calcium carbonate (Calcium 600) 600 mg PO DAILY 02/24/23 fluticasone propionate 50 2 spray intranasal DAILY PRN 12/13/23 mcg/actuation nasal allergy symptoms #3 ea spray,suspension lorazepam 0.5 mg tablet 0.5 mg PO ONCE PRN flight phobia 09/26/24 #10 tabs atorvastatin 10 mg tablet 10 mg PO QHS #90 tabs 12/25/24 cholecalciferol (vitamin D3) 50 2,000 unit PO DAILY #90 caps 12/25/24 mcg (2,000 unit) capsule citalopram 10 mg tablet 10 mg PO DAILY #90 tabs 12/25/24 ferrous sulfate 325 mg (65 mg 325 mg PO DAILY #90 tabs 12/25/24 iron) tablet tadalafil 5 mg tablet (Cialis) 5 mg PO DAILY sexual activity #90 02/02/25 tabs cyanocobalamin (vitamin B-12) 1,000 mcg PO DAILY #90 caps 03/05/25 1,000 mcg capsule loratadine 10 mg tablet 10 mg PO DAILY PRN allergy 03/13/25 symptoms #90 tabs Current Visit Medications: Current Medications Generic Name Dose Route Start Last Admin Trade Name Freq PRN Reason Stop Dose Admin Ringer's Solution 1,000 mls @ 80 mls/hr 06/12/25 06:00 06/12/25 10:13 IV 06/12/25 23:59 80 mls/hr INFUSION LASHON Administration IV Miscellaneous Supplies 1 each 06/12/25 06:00 Iv Access IV 06/12/25 23:59 DIRECTED LASHON Sodium Chloride 0 ml 06/12/25 06:00 Normal Saline Flush 10 Ml Syr IV 06/12/25 23:59 PRN PRN Sodium Chloride 0 ml 06/12/25 06:00 Normal Saline 10 Ml Vial IJ 06/12/25 23:59 DIRECTED PRN Sterile Water 0 ml 06/12/25 06:00 Water,Injection,Sterile 10 Ml Vial IJ 06/12/25 23:59 DIRECTED PRN PFSH Active Problems Active Problems: Problem Status Onset Code Osteoporosis Chronic M81.0 History of stroke Chronic Z86.73 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 Mobitz type 2 second degree atrioventricular block Chronic I44.1 Major depressive disorder, recurrent Chronic F33.9 Periodic limb movement disorder Chronic G47.61 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 stated he followed up with neurology and was discharged from their service. Pt. states he has no residual deficits. Surgical History Surgical History History of esophagogastroduodenoscopy (04/18/24) Status post right knee replacement Status post left knee replacement Hx of transurethral resection of prostate (01/22/20) Tobacco Smoking/Tobacco Use Status: Never Passive smoking exposure: No Second hand exposure: No Alcohol Alcohol Intake: current Alcohol intake frequency: a few times a week Alcohol type: beer Substance Use Substance use: Never Substance use type: does not use Vital Signs and Lab Results Vital Signs Most Recent Vital Signs in EMR: Most Recent Vital Signs Temp Pulse Resp BP Pulse Ox 36.2 C L 60 16 120/85 100 06/12/25 10:03 06/12/25 10:03 06/12/25 10:03 06/12/25 10:03 06/12/25 10:03 Imaging and Studies Imaging and Studies Study information below may be from another EMR and interpreted by another provider. Please see original notes in EMR for more complete details. EKG Summary: 08/05: sinus. VT 0.22 Anesthesia Assessment and Plan Anesthesia History Personal History: No History of Anesthesia Complications Family History: No Family History of Anesthesia Complications Exercise Tolerance Exercise Tolerance: Metabolic Equivalents>4 Pertinent Negatives Pertinent Negatives: No Symptoms of GERD Cardiac & Pulmonary Exam Cardiac Exam: Normal S1/S2 Heart Sounds Pulmonary Exam: Clear Bilateral Breath Sounds Implantable Cardiac Device Does patient have a Pacemaker or an ICD?: No Airway Exam Known Difficult Airway: No Mallampati Class: 2 Mouth Opening: Normal (> 3cm) Thyromental Distance: Greater than 3 cm Neck Range of Motion: Limited ROM Neck Circumference: Normal Teeth Condition: Normal Dentition ASA Classification ASA Score: ASA 2 Emergency Case?: No NPO Status NPO Status: NPO Clears >2 hours, Solids >8 hours Anesthesia Plan Resuscitation Status: Full Code Anesthesia Technique: General Anesthesia Airway Planned: Natural Airway Monitors Used: Standard Monitors
[2025-06-12 11:11] VITALS: BMI 24.5
--- NOTE | 2025-06-12 12:15 | STOM_PTH ---
PATIENT: Denis Loomis III LOC: [facility] U#:[id number] AGE/SX: 70/M ROOM: RE06/12/[address]: Ramesh Rubalcava MD : [id number] BED: DIS: 06/12/2025 SPEC #: [id number] RECD: 06/12/25 17:10 STATUS: GALEN RE #: [id number] HERIBERTO: 06/12/25 12:[address]: Ramesh Rubalcava DEPT: Surgical Specimen RECD BY: Debbie Tavera ENTERED: 06/12/25 17:26 SP TYPE: STOMACH OTHR DR: Ginger Mejía, EQUIPMENT TECH Tissues: 1 - STOMACH BIOPSY 2 - STOMACH BIOPSY 3 - STOMACH BIOPSY 4 - STOMACH BIOPSY 5 - STOMACH BIOPSY Procedures: GROSS AND MICRO LEVEL 4 IMMUNOPEROXIDASE STAIN Comments: [id number]
[2025-06-12 12:27] VITALS: BP 113/71; PULSE 67; RESP 18; TEMP 36.6; O2SAT 98
--- NOTE | 2025-06-12 12:36 | W.ANESPOSTOP ---
Postoperative Evaluation Date, Time and Location Date Performed: 06/12/25 Time Performed: 12:36 Patient Location: Day [facility] Unit Vital Signs Most Recent Imported Vital Signs: Most Recent Vital Signs Temp Pulse Resp BP Pulse Ox 36.6 C 67 18 113/71 98 06/12/25 12:27 06/12/25 12:27 06/12/25 12:27 06/12/25 12:27 06/12/25 12:27 Pain Score Most Recent Pain Score: Most Recent Pain Score Pain Level 0 06/12/25 12:27 Assessment Mental Status: Awake (Alert & Oriented to Patient Baseline) Airway and Respiratory Function: Patent airway with normal (patient baseline) respiratory exam Cardiovascular Function: Hemodynamically Stable Hydration Status: Adequately Hydrated Nausea & Vomiting: No Nausea or Vomiting Pain: Pt. Denies Any Pain Peripheral Nerve Block: Patient did not receive a nerve block
[2025-06-12 12:57] VITALS: BP 127/84; PULSE 56; RESP 16; TEMP 36.7; O2SAT 98
== END 2025-06-12 13:11 | disposition home or self-care (01) ==
LOC: SUR 09:38
PROVIDERS: PCP Nurse Practitioner Family; Visit Provider Surgery
PROC: 0DJ68ZZ Inspection of Stomach, Via Natural or Artificial Opening Endoscopic (ICD-10-PCS; CPT 43235; principal; 2025-06-12 11:00)
DX: K29.40 Chronic atrophic gastritis without bleeding (principal)
CPT/HCPCS: 43239; 88305; 88361; J2003; J2405; J2704

== ENCOUNTER 2025-06-20 01:58 | Outpatient (RCR) | payer MEDICARE, SELFPAY ==
[2025-06-20 08:24] VITALS: BP 135/79; PULSE 62; RESP 18; TEMP 36.4; O2SAT 95
[2025-06-20] MEDS: Normal Saline Flush 10 ML SYR IVP (08:26)
[2025-06-20 09:02] VITALS: BP 125/73; PULSE 60; RESP 18; TEMP 36.4; O2SAT 98
== END 2025-07-15 23:59 | disposition home or self-care (01) ==
LOC: INF 01:58
PROVIDERS: PCP Nurse Practitioner Family; Visit Provider Family Medicine
DX: M81.0 Age-related osteoporosis without current pathological fracture (principal)
CPT/HCPCS: 96365; J3489

== ENCOUNTER 2025-06-29 15:06 | Outpatient (CLI) | payer MEDICARE, SELFPAY ==
--- NOTE | 2025-06-29 14:12 | DI.RAD_ITS ---
Exam(s) XR CERVICAL SPINE COMP 4-5V EXAM: XR CERVICAL SPINE COMP 4-5V CLINICAL HISTORY: neck pain M54.2 CERVICALGIA G89.29 CHRONIC PAIN. TECHNIQUE: 2D digital imaging was performed. Six images were obtained. AP, odontoid, lateral and bilateral oblique images were obtained. COMPARISON: No exams were available for comparison FINDINGS: The odontoid is intact. The lateral masses are well aligned. There is normal alignment of the cervical spine. There is disc space narrowing at C5-6 and C6- C7. There are endplate osteophytes at multiple levels of the cervical spine particularly at C5-6 and C6-C7. Degenerative changes of the facets are present, particularly on the left at C3-C4 and C4-C5.. No acute fracture or subluxation is present. There is moderate neural foraminal narrowing on the right at C5-6 and C6-C7. There is mild neural foraminal narrowing on the left at C4-C5. The cervical thoracic junction is well maintained. The prevertebral soft tissues are unremarkable. Lung apices are clear. IMPRESSION: Moderate degenerative changes are seen throughout the cervical spine as described above. DATA REPOSITORY: RADIATION DOSE DELIVERED:
== END 2025-06-29 15:26 ==
LOC: DI 15:07
PROVIDERS: PCP Nurse Practitioner Family; Visit Provider Nurse Practitioner Family
DX: M54.2 Cervicalgia (principal); G89.29 Other chronic pain
CPT/HCPCS: 72050

== ENCOUNTER 2025-07-24 11:46 | Outpatient (CLI) | payer MEDICARE, SELFPAY ==
[2025-07-26 11:21] LABS: Lyme Ab w Rflx to Lyme Confirm Negative (Negative)
[2025-07-27 20:24] LABS: B. miyamotoi PCR Negative (Negative); Babesia divergens/MO-1 Negative (Negative); Ehrlichia muris eauclairensis Negative (Negative)
== END 2025-07-24 11:47 | disposition home or self-care (01) ==
PROVIDERS: PCP Nurse Practitioner Family; Visit Provider Nurse Practitioner Family
DX: R51.9 Headache, unspecified (principal)
CPT/HCPCS: 36415; 87798; 86618

== ENCOUNTER 2025-10-23 16:28 | Outpatient (CLI) | payer MEDICARE, SELFPAY ==
[2025-10-23 16:19] LABS: HCT 44.8 % (40.0-50.0); HGB 15.0 g/dL (13.5-17.5); MCH 29.8 pg (27.0-33.0); MCHC 33.5 % (32.0-36.0); MCV 89 fL (80-95); MPV 10.1 fL (8.0-11.0); Platelet Count 203 10^3/uL (130-400); RBC 5.04 10^6/uL (4.36-5.78); RDW 12.3 % (11.8-14.1); RDW-SD 40.5 fL; WBC 7.41 10^3/uL (4.4-10.8)
[2025-10-23 18:35] LABS: Anion Gap 6.7 mmol/L (3-11); BUN 12 mg/dL (9-23); CO2 32.3 mmol/L (20.0-31.0); Calcium 9.0 mg/dL (8.3-10.6); Chloride 102 mmol/L (98-107); Glucose 86 mg/dL (74-106); Potassium 3.8 mmol/L (3.5-5.1); Sodium 141 mmol/L (136-145)
[2025-10-23 18:37] LABS: Ferritin 44 ng/mL (11-307)
[2025-10-23 18:38] LABS: Folate 19.9 ng/mL (>5.38); Vitamin B12 836 pg/mL (211-911)
[2025-10-24 18:18] LABS: PSA, Screening 0.7 ng/mL (<=6.5)
== END 2025-10-23 16:29 | disposition home or self-care (01) ==
LOC: LBO 16:28
PROVIDERS: PCP Nurse Practitioner Family; Visit Provider Nurse Practitioner Family
DX: K29.40 Chronic atrophic gastritis without bleeding (principal); Z12.5 Encounter for screening for malignant neoplasm of prostate; M81.0 Age-related osteoporosis without current pathological fracture; M47.812 Spondylosis without myelopathy or radiculopathy, cervical region
CPT/HCPCS: 36415; 80048; 84153; 85027; 82607; 82728; 82746